=== PATIENT | female | born 1940 | race Caucasian/White ===

== ENCOUNTER 2018-04-05 10:53 | Outpatient (REF) | payer MEDICARE, MEDICAID, SELFPAY ==
[2018-04-05 13:13] LABS: BUN 17 mg/dL (7-18); CREATININE 0.86 mg/dL (0.55-1.02); Chloride 101 mmol/L (98-107); Glucose 153 mg/dL (70-100); Potassium 4.2 mmol/L (3.5-5.1); Sodium 139 mmol/L (136-145)
[2018-04-05 13:41] LABS: COMMENT (LAB VIEW ONLY) 147.57 mg/dL; Microalb ug/mg Crea 10.7 ug/mg Cr
== END 2018-04-05 11:13 ==
LOC: NCHCN 10:53
PROVIDERS: PCP Family Medicine; Visit Provider Family Medicine
DX: R80.9 Proteinuria, unspecified (principal); I10 Essential (primary) hypertension
CPT/HCPCS: 80048; 82043; 82570

== ENCOUNTER 2018-10-22 13:21 | Emergency (ER) | payer MEDICARE, MEDICAID, SELFPAY ==
[2018-10-22 13:40] VITALS: BP 139/60; PULSE 75; RESP 16; TEMP 36.6; O2SAT 95
--- NOTE | 2018-10-22 13:45 | W.ED.GENAD ---
Discharge Plan Disposition Patient Disposition: HOME Condition: Fair Discharge Details Chief Complaint: Cellulitis Clinical Impression: Bug bite Primary Care Provider: [facility] ED Provider: Rylee Sears Home Meds and New Rx's Prescriptions: New hydrocortisone 2.5 % cream 1 applic TP BID-QID PRN (Reason: allergic reaction) Qty: 20 RF: 0 Continued metformin 500 MG tablet 2,000 mg PO DAILY RF: 0 vitamin A 25,000 UNIT capsule 25,000 unit PO DAILY RF: 0 lisinopril 20 MG tablet 40 mg PO DAILY RF: 0 ascorbic acid (vitamin C) [Vitamin C] 500 MG capsule, extended release 500 mg PO DAILY RF: 0 vitamin B complex 1 EACH tablet 1 ea PO DAILY RF: 0 vitamin E 400 UNIT capsule 400 unit PO DAILY RF: 0 garlic 1 EACH tablet 1 ea PO DAILY RF: 0 omega-3 fatty acids-fish oil 1 EACH capsule 1 ea PO DAILY RF: 0 cholecalciferol (vitamin D3) 2,000 UNIT tablet 6,000 unit PO DAILY RF: 0 chromium amino acid chelate 400 MCG tablet 200 mcg PO DAILY RF: 0 essiac tea RF: 0 alpha lipoic acid 200 MG tablet 200 mg PO DAILY RF: 0 Discharge Instructions Instructions: Insect Bite or Sting (ED) Additional Instructions: Encourage hydration. Please use hydrocortisone cream as prescribed to help with itching. Please follow-up with primary care if not improving in 1 week. If you develop increased pain, fever/chills, discharge or other new/worsening symptoms please seek care urgently once again. Referrals: [facility] [Primary Care Provider] - Medical Decision Making Patient presents today with for evaluation of bug bites. She reports that she was bitten approximately 1 week ago. She has one bite posterior to the right ear, down towards the hairline is approximately 4 cm in diameter. It is not warm to palpation, no pain with palpation, no area of fluctuance. No discharge. Appears more reactive than infected. Patient reports is been very itchy she has been applying aloe which helps with chronic management. Also has a lump directly on the left ear which is smaller and appears very similar. I advised this appears more reactive than infectious. She reports that she typically has hyperreactive issues with bug bites. Patient reports she is been on steroids multiple times in the past and she responded poorly. Rather than systemic treatment, I feel that topical is appropriate and advised topical hydrocortisone. Advised that she wash this regularly and continue to monitor for signs of infection. Signs symptoms of infection were discussed. She will follow-up with primary care in 1 week if not improving. All questions and concerns were addressed and she is in agreement this plan peer HPI General Mode of arrival: ambulatory. Date/Time Provider Initiated Documentation: 10/22/18 13:45. Limitations to Documentation: no limitations. Information obtained by: patient and RN notes reviewed. History of Present Illness 77 year old F presents to the emergency department with the chief complaint of black fly bites behind both ears, described as moderate (itchy), Quality is described as burning (after itching or showering), and is localized to the head. Patient reports no radiation. Patient started experiencing this week(s) (1) and it has been constant. Medication improves symptom(s), (topical aloe) No exacerbating factors reported . Patient notes no other symptoms.. Patient did receive the following treatments prior to arrival, none Related Data Home Medications Medication Instructions Recorded Confirmed Essiac Tea 12/28/13 ascorbic acid (vitamin C) [Vitamin 500 mg PO DAILY 12/28/13 10/22/18 C] cholecalciferol (vitamin D3) 6,000 unit PO DAILY 12/28/13 10/22/18 chromium amino acid chelate 200 mcg PO DAILY 12/28/13 10/22/18 garlic 1 ea PO DAILY 12/28/13 10/22/18 lisinopril 40 mg PO DAILY tab-cap 12/28/13 10/22/18 metformin 2,000 mg PO DAILY tab-cap 12/28/13 10/22/18 omega-3 fatty acids-fish oil 1 ea PO DAILY 12/28/13 10/22/18 vitamin A 25,000 unit PO DAILY 12/28/13 10/22/18 vitamin B complex 1 ea PO DAILY 12/28/13 10/22/18 vitamin E 400 unit PO DAILY 12/28/13 10/22/18 alpha lipoic acid 200 mg PO DAILY 01/17/16 10/22/18 hydrocortisone 1 applic TP BID-QID PRN #20 gm 10/22/18 Previous Rx's Medication Instructions Recorded hydrocortisone 1 applic TP BID-QID PRN #20 gm 10/22/18 Allergies Allergy/AdvReac Type Severity Reaction Status Date / Time Penicillins Allergy Unverified 10/22/18 13:44 saxagliptin HCl Allergy Unverified 10/22/18 13:44 [From Onglyza] prednisone AdvReac Unverified 10/22/18 13:45 General Stated Complaint: Cellulitis EVA: 4 Review of Systems Constitutional Reports as per HPI, Denies chills and Denies fever(s) Musculoskeletal Reports as per HPI Integumentary/Breasts Reports as per HPI Neurologic Reports as per HPI, Denies sensory deficit and Denies paresthesias [facility] Medical History Alopecia Arthritis Congenital ectodermal dysplasia Constipation Contact dermatitis Cystitis Deviated nasal septum Diabetes Diabetic peripheral neuropathy Dry eye syndrome Esophagitis Herpes zoster Hyperlipidemia Hypertension Hyponatremia Microalbuminuric diabetic nephropathy Neck stiffness Osteopenia Sensorineural hearing loss Venous insufficiency Surgical History Total replacement of hip (~2000) Social History Smoking/Tobacco Use Status: Never Drug use: Never Do you feel safe in your relationship?: Yes Exam Const General: cooperative, healthy appearing, comfortable, no acute distress and well developed Nutritional Appearance: average body habitus and well nourished Orientation: alert and awake HENFL Head: abnormal to inspection (bites behind both ears with surrounding erythema and swelilng) Resp Effort & Inspection: normal respiratory effort, able to speak in complete sentences and no respiratory distress Cardio Rate: regular rate Rhythm: regular rhythm Skin General skin exam: erythema (around 2 bug bites) Neuro General: alert and awake Cognition: normal cognition Speech: speech normal Gait: normal gait Sensory Exam: no sensory deficits noted Psych Appearance: grossly normal and well kempt Mental Status: mental status grossly normal Speech and Movement: speech and movement normal Course Vital Signs Temperature 36.6 C 10/22/18 13:40 Pulse 75 10/22/18 13:40 Respiratory Rate 16 10/22/18 13:40 Blood Pressure 139/60 10/22/18 13:40 Pulse Oximetry 95 10/22/18 13:40 Temperature 36.6 C 10/22/18 13:40 Temperature Source Tympanic 10/22/18 13:40 Pulse 75 10/22/18 13:40 Respiratory Rate 16 06/15/19 13:40 Blood Pressure 139/60 06/15/19 13:40 Pulse Oximetry 95 10/22/18 13:40 Oxygen Delivery Method Room Air 10/22/18 13:40 Oxygen Flow Rate 0 10/22/18 13:40
--- NOTE | 2018-10-22 13:55 | ED.GENADUL_ITS ---
Discharge Plan Disposition Patient Disposition: HOME Condition: Fair Discharge Details Chief Complaint: Cellulitis Clinical Impression: Bug bite Primary Care Provider: [facility] ED Provider: Rylee Sears Home Meds and New Rx's Prescriptions: New hydrocortisone 2.5 % cream 1 applic TP BID-QID PRN (Reason: allergic reaction) Qty: 20 RF: 0 Continued metformin 500 MG tablet 2,000 mg PO DAILY RF: 0 vitamin A 25,000 UNIT capsule 25,000 unit PO DAILY RF: 0 lisinopril 20 MG tablet 40 mg PO DAILY RF: 0 ascorbic acid (vitamin C) [Vitamin C] 500 MG capsule, extended release 500 mg PO DAILY RF: 0 vitamin B complex 1 EACH tablet 1 ea PO DAILY RF: 0 vitamin E 400 UNIT capsule 400 unit PO DAILY RF: 0 garlic 1 EACH tablet 1 ea PO DAILY RF: 0 omega-3 fatty acids-fish oil 1 EACH capsule 1 ea PO DAILY RF: 0 cholecalciferol (vitamin D3) 2,000 UNIT tablet 6,000 unit PO DAILY RF: 0 chromium amino acid chelate 400 MCG tablet 200 mcg PO DAILY RF: 0 essiac tea RF: 0 alpha lipoic acid 200 MG tablet 200 mg PO DAILY RF: 0 Discharge Instructions Instructions: Insect Bite or Sting (ED) Additional Instructions: Encourage hydration. Please use hydrocortisone cream as prescribed to help with itching. Please follow-up with primary care if not improving in 1 week. If you develop increased pain, fever/chills, discharge or other new/worsening symptoms please seek care urgently once again. Referrals: [facility] [Primary Care Provider] - Medical Decision Making Patient presents today with for evaluation of bug bites. She reports that she was bitten approximately 1 week ago. She has one bite posterior to the right ear, down towards the hairline is approximately 4 cm in diameter. It is not warm to palpation, no pain with palpation, no area of fluctuance. No discharge. Appears more reactive than infected. Patient reports is been very itchy she has been applying aloe which helps with chronic management. Also has a lump directly on the left ear which is smaller and appears very similar. I advised this appears more reactive than infectious. She reports that she typically has hyperreactive issues with bug bites. Patient reports she is been on steroids multiple times in the past and she responded poorly. Rather than systemic treatment, I feel that topical is appropriate and advised topical hydrocortisone. Advised that she wash this regularly and continue to monitor for signs of infection. Signs symptoms of infection were discussed. She will follow-up with primary care in 1 week if not improving. All questions and concerns were addressed and she is in agreement this plan peer HPI General Mode of arrival: ambulatory . Date/Time Provider Initiated Documentation: 10/22/18 13:45 . Limitations to Documentation: no limitations . Information obtained by: patient and RN notes reviewed . History of Present Illness 77 year old F presents to the emergency department with the chief complaint of black fly bites behind both ears, described as moderate (itchy), Quality is described as burning (after itching or showering), and is localized to the head. Patient reports no radiation. Patient started experiencing this week(s) (1) and it has been constant. Medication improves symptom(s), (topical aloe) No exacerbating factors reported . Patient notes no other symptoms.. Patient did receive the following treatments prior to arrival, none Related Data Home Medications Medication Instructions Recorded Confirmed Essiac Tea 12/28/13 ascorbic acid (vitamin C) [Vitamin 500 mg PO DAILY 12/28/13 10/22/18 C] cholecalciferol (vitamin D3) 6,000 unit PO DAILY 12/28/13 10/22/18 chromium amino acid chelate 200 mcg PO DAILY 12/28/13 10/22/18 garlic 1 ea PO DAILY 12/28/13 10/22/18 lisinopril 40 mg PO DAILY tab-cap 12/28/13 10/22/18 metformin 2,000 mg PO DAILY tab-cap 12/28/13 10/22/18 omega-3 fatty acids-fish oil 1 ea PO DAILY 12/28/13 10/22/18 vitamin A 25,000 unit PO DAILY 12/28/13 10/22/18 vitamin B complex 1 ea PO DAILY 12/28/13 10/22/18 vitamin E 400 unit PO DAILY 12/28/13 10/22/18 alpha lipoic acid 200 mg PO DAILY 01/17/16 10/22/18 hydrocortisone 1 applic TP BID-QID PRN #20 gm 10/22/18 Previous Rx's Medication Instructions Recorded hydrocortisone 1 applic TP BID-QID PRN #20 gm 10/22/18 Allergies Allergy/AdvReac Type Severity Reaction Status Date / Time Penicillins Allergy Unverified 10/22/18 13:44 saxagliptin HCl Allergy Unverified 10/22/18 13:44 [From Onglyza] prednisone AdvReac Unverified 10/22/18 13:45 General Stated Complaint: Cellulitis EVA: 4 Review of Systems Constitutional Reports as per HPI, Denies chills and Denies fever(s) Musculoskeletal Reports as per HPI Integumentary/Breasts Reports as per HPI Neurologic Reports as per HPI, Denies sensory deficit and Denies paresthesias [facility] Medical History Alopecia Arthritis Congenital ectodermal dysplasia Constipation Contact dermatitis Cystitis Deviated nasal septum Diabetes Diabetic peripheral neuropathy Dry eye syndrome Esophagitis Herpes zoster Hyperlipidemia Hypertension Hyponatremia Microalbuminuric diabetic nephropathy Neck stiffness Osteopenia Sensorineural hearing loss Venous insufficiency Surgical History Total replacement of hip (~2000) Social History Smoking/Tobacco Use Status: Never Drug use: Never Do you feel safe in your relationship?: Yes Exam Const General: cooperative, healthy appearing, comfortable, no acute distress and well developed Nutritional Appearance: average body habitus and well nourished Orientation: alert and awake HENAR Head: abnormal to inspection (bites behind both ears with surrounding erythema and swelilng) Resp Effort & Inspection: normal respiratory effort, able to speak in complete sentences and no respiratory distress Cardio Rate: regular rate Rhythm: regular rhythm Skin General skin exam: erythema (around 2 bug bites) Neuro General: alert and awake Cognition: normal cognition Speech: speech normal Gait: normal gait Sensory Exam: no sensory deficits noted Psych Appearance: grossly normal and well kempt Mental Status: mental status grossly normal Speech and Movement: speech and movement normal Course Vital Signs Temperature 36.6 C 10/22/18 13:40 Pulse 75 10/22/18 13:40 Respiratory Rate 16 10/22/18 13:40 Blood Pressure 139/60 10/22/18 13:40 Pulse Oximetry 95 10/22/18 13:40 Temperature 36.6 C 10/22/18 13:40 Temperature Source Tympanic 10/22/18 13:40 Pulse 75 10/22/18 13:40 Respiratory Rate 16 06/15/19 13:40 Blood Pressure 139/60 06/15/19 13:40 Pulse Oximetry 95 10/22/18 13:40 Oxygen Delivery Method Room Air 10/22/18 13:40 Oxygen Flow Rate 0 10/22/18 13:40
== END 2018-10-22 14:12 | disposition home or self-care (01) ==
LOC: ER 14:12
PROVIDERS: Emergency Provider Physician Assistant; PCP Family Medicine
DX: S00.461A Insect bite (nonvenomous) of right ear, initial encounter (principal); W57.XXXA Bitten or stung by nonvenomous insect and other nonvenomous arthropods, initial encounter; E11.29 Type 2 diabetes mellitus with other diabetic kidney complication; I10 Essential (primary) hypertension; E11.40 Type 2 diabetes mellitus with diabetic neuropathy, unspecified; Z79.84 Long term (current) use of oral hypoglycemic drugs
CPT/HCPCS: 99282

== ENCOUNTER 2019-03-14 13:16 | Outpatient (REF) | payer MEDICARE, MEDICAID, SELFPAY ==
[2019-03-14 19:43] LABS: HCT 38.5 % (36.0-46.0); HGB 12.5 g/dL (12.0-15.5); Mean Corp. HGB Concentration 32.5 g/dL (32.0-36.0); Mean Corpuscular Hemoglobin 28.9 pg (27.0-33.0); Mean Corpuscular Volume 88.9 fL (80-95); Mean Platelet Volume 11.5 fL (8.0-11.0); Platelet Count 243 x1000/uL (130-400); RBC 4.33 m/cumm (4.00-5.20); RBC Distribution Width 12.3 % (11.7-14.6); White Blood Cell Count 5.92 k/cumm (4.4-10.8)
[2019-03-14 20:07] LABS: ALT 33 U/L (14-59); AST 15 U/L (15-37); Albumin 3.8 g/dL (3.4-5.0); Alkaline Phosphatase 65 U/L (46-116); Anion Gap 12.2 mmol/L (3-11); BUN 17 mg/dL (7-18); Bilirubin, Total 0.4 mg/dL (0.2-1.0); CO2 24.8 mmol/L (21.0-32.0); Calcium 8.8 mg/dL (8.5-10.1); Calculated LDL 107 mg/dL; Chloride 103 mmol/L (98-107); Cholesterol 178 mg/dL (50-200); Glucose 109 mg/dL (70-100); HDL Cholesterol 56 mg/dL (40-60); Potassium 4.4 mmol/L (3.5-5.1); Sodium 140 mmol/L (136-145); TSH (W/Ref FT4) 0.92 uIU/mL (0.36-3.74); Triglyceride 77 mg/dL (30-150)
== END 2019-03-14 13:36 ==
LOC: NCHCN 13:16
PROVIDERS: PCP Family Medicine; Visit Provider Family Medicine
DX: I10 Essential (primary) hypertension (principal); E11.9 Type 2 diabetes mellitus without complications; R63.4 Abnormal weight loss
CPT/HCPCS: 80053; 80061; 85027; 84443

== ENCOUNTER 2020-01-16 15:20 | Outpatient (REF) | payer MEDICARE, MEDICAID, SELFPAY ==
[2020-01-16 16:30] LABS: Anion Gap 10.9 mmol/L (3-11); BUN 19 mg/dL (7-18); CO2 25.1 mmol/L (21.0-32.0); CREATININE 0.74 mg/dL (0.55-1.02); Calcium 9.1 mg/dL (8.5-10.1); Chloride 98 mmol/L (98-107); Glucose 146 mg/dL (74-106); Potassium 4.1 mmol/L (3.5-5.1); Sodium 134 mmol/L (136-145)
== END 2020-01-16 15:40 ==
LOC: NCHCN 15:20
PROVIDERS: PCP Family Medicine; Visit Provider Family Medicine
DX: I10 Essential (primary) hypertension (principal); E11.9 Type 2 diabetes mellitus without complications
CPT/HCPCS: 80048

== ENCOUNTER 2020-03-22 11:31 | Emergency (ER) | payer MEDICARE, MEDICAID, SELFPAY ==
[2020-03-22 11:36] VITALS: BP 165/68; PULSE 76; RESP 14; TEMP 36.7; O2SAT 100
--- NOTE | 2020-03-22 11:54 | W.ED.GENAD ---
Discharge Plan Disposition Patient Disposition: HOME Condition: Stable Discharge Details Clinical Impression: Migraine, Head pain Primary Care Provider: [facility] ED Provider: Shayne Shelton Home Meds and New Rx's Prescriptions: Continued metformin 500 MG tablet 2,000 mg PO DAILY RF: 0 vitamin A 25,000 UNIT capsule 25,000 unit PO DAILY RF: 0 lisinopril 20 MG tablet 40 mg PO DAILY RF: 0 ascorbic acid (vitamin C) [Vitamin C] 500 MG capsule, extended release 500 mg PO DAILY RF: 0 vitamin B complex 1 EACH tablet 1 ea PO DAILY RF: 0 vitamin E 400 UNIT capsule 400 unit PO DAILY RF: 0 garlic 1 EACH tablet 1 ea PO DAILY RF: 0 omega-3 fatty acids-fish oil 1 EACH capsule 1 ea PO DAILY RF: 0 cholecalciferol (vitamin D3) 2,000 UNIT tablet 6,000 unit PO DAILY RF: 0 chromium amino acid chelate 400 MCG tablet 200 mcg PO DAILY RF: 0 essiac tea RF: 0 alpha lipoic acid 200 MG tablet 200 mg PO DAILY RF: 0 hydrocortisone 2.5 % cream 1 applic TP BID-QID PRN (Reason: allergic reaction) Qty: 20 RF: 0 Discharge Instructions Additional Instructions: your blood work and cat scan did not show any concerning findings if you have severe worsening pain, persistent vomit, or feel more ill return to the emergency department follow up with your primary care provider Medical Decision Making 79 yo female with hx of ocular migraines per patient but has not had one in 6 years comes in with complaints of having an ocular migraine. She states 3 days ago had pain similar to prior migraines that was not the worst of her life on the left parietal region lasting a few minutes and resolved and had blurred vision which resolved as well. 2 days ago and today had 10 minutes of blurred vision that resolved and she arrives asymptomatic. Denies weakness, paresthesia and no head pain now and no fevers or neck stiffness. Arrives with normal gait and normal speech, eomi, no temporal artery tenderness, no meningismus, nih of 0. Suspect her symptoms are due to ocular migraines but given it has been 6 years since last will obtain iamging to evaluate for possible sdh, aneurysm among other pathology. No findings to suggest extruder tender infection and pain was not the worst of her life so doubt sah. pt remains sable, 20/40 in the left eye and 20/70 in the right eye which she states is baseline and remains asymptomatic.Labs and imaging unremarkable. Suspect migraine as cause of her symptoms will d/c home and return precautions given Differential Diagnosis Differential Diagnosis: aneurysm, migraine, sdh, cluster headache Medical Records Medical records reviewed: Yes I reviewed the patient's medical records. Imaging Data Radiologic Study: Attestation: I personally reviewed and interpreted this imaging study as follows: Imaging: CT Scan Radiologist's impression: IMPRESSION: 1. No evidence of aneurysm, significant stenosis or occlusion. 2. Unremarkable noncontrast CT Head. 3. Findings were discussed with the emergency department on the date of the examination Lab Data Lab results reviewed: Yes I reviewed the patient's lab results. HPI General Mode of arrival: ambulatory. Date/Time Provider Initiated Documentation: 03/22/20 11:32. Limitations to Documentation: no limitations. Information obtained by: patient. History of Present Illness 79 year old F presents to the emergency department with the chief complaint of headache, described as moderate, Patient started experiencing this day(s) (3) and it has been now resolved. No relieving factors improve symptom(s), No exacerbating factors reported . Patient did receive the following treatments prior to arrival, none Related Data Home Medications Medication Instructions Recorded Confirmed Essiac Tea 12/28/13 ascorbic acid (vitamin C) [Vitamin 500 mg PO DAILY 12/28/13 03/22/20 C] cholecalciferol (vitamin D3) 6,000 unit PO DAILY 12/28/13 03/22/20 chromium amino acid chelate 200 mcg PO DAILY 12/28/13 03/22/20 garlic 1 ea PO DAILY 12/28/13 03/22/20 lisinopril 40 mg PO DAILY tab-cap 12/28/13 03/22/20 metformin 2,000 mg PO DAILY tab-cap 12/28/13 03/22/20 omega-3 fatty acids-fish oil 1 ea PO DAILY 12/28/13 03/22/20 vitamin A 25,000 unit PO DAILY 12/28/13 03/22/20 vitamin B complex 1 ea PO DAILY 12/28/13 03/22/20 vitamin E 400 unit PO DAILY 12/28/13 03/22/20 alpha lipoic acid 200 mg PO DAILY 01/17/16 03/22/20 hydrocortisone 1 applic TP BID-QID PRN #20 gm 10/22/18 03/22/20 Previous Rx's Medication Instructions Recorded hydrocortisone 1 applic TP BID-QID PRN #20 gm 10/22/18 Allergies Allergy/AdvReac Type Severity Reaction Status Date / Time Penicillins Allergy Unverified 03/22/20 11:42 saxagliptin HCl Allergy Unverified 03/22/20 11:42 [From Onglyza] prednisone AdvReac Unverified 03/22/20 11:42 General Stated Complaint: Headache EVA: 3 Review of Systems All systems reviewed & are unremarkable except as noted in HPI and below Constitutional Constitutional: Denies chills, Denies fever(s) and Denies weakness Cardiovascular Cardiovascular: Denies chest pain and Denies dyspnea Respiratory Respiratory: Denies cough and Denies dyspnea Gastrointestinal Gastrointestinal: Denies abdominal pain, Denies nausea and Denies vomiting Musculoskeletal Musculoskeletal: Denies joint swelling Neurologic Neurologic: Denies weakness Psychiatric Psychiatric: Denies depression [facility] Medical History (Updated 03/22/20 @ 13:40 by Shayne Shelton MD) Alopecia Arthritis Congenital ectodermal dysplasia Constipation Contact dermatitis Cystitis Deviated nasal septum Diabetes 2006 Diabetic peripheral neuropathy Dry eye syndrome Esophagitis Herpes zoster Hyperlipidemia Hypertension Hyponatremia Microalbuminuric diabetic nephropathy Neck stiffness Osteopenia Venous insufficiency Surgical History Total replacement of hip (~2000) Social History Smoking/Tobacco Use Status: Never Smoking risk assessment performed?: Yes Alcohol Intake: never Drug use: Never Substance use type: does not use Do you feel safe at home: Yes Do you feel safe in your relationship?: Yes Exam Const General: no acute distress Orientation: alert HENUT Head: normal to inspection Ears: external ears normal General nose exam: external nose normal Mouth: moist mucous membranes Eyes General: appearance normal, both eyes and all related structures Neck Neck: normal visual inspection Resp Effort & Inspection: normal respiratory effort and able to speak in complete sentences Cardio Rate: regular rate Skin General skin exam: no rashes or lesions noted Neuro General: patient alert and patient oriented x3 Extrem General: normal to inspection Psych Mental Status: mental status grossly normal Course Vital Signs Vital signs: Vital Signs Temperature 36.7 C 03/22/20 11:36 Pulse 76 03/22/20 11:36 Respiratory Rate 14 03/22/20 11:36 Blood Pressure 165/68 H 03/22/20 11:36 Pulse Oximetry 100 03/22/20 11:36 Temperature 36.7 C 03/22/20 11:36 Temperature Source Skin 03/22/20 11:36 Pulse 76 03/22/20 11:36 Respiratory Rate 14 03/22/20 11:36 Respiratory Effort 03/22/20 11:43 Blood Pressure 165/68 H 03/22/20 11:36 Blood Pressure Position Sitting 03/22/20 11:36 Pulse Oximetry 100 03/22/20 11:36 Oxygen Delivery Method Room Air 03/22/20 11:36 Oxygen Flow Rate 0 03/22/20 11:36 Pain Level 0 03/22/20 11:36
[2020-03-22 12:39] LABS: Abs Immature Grans 0.02 10^3/uL (0.0-0.06); Absolute Basophil Count 0.04 10^3/uL (0.0-0.2); Absolute Eosinophil Count 0.36 10^3/uL (0.0-0.7); Absolute Lymphocyte Count 1.99 10^3/uL (1.2-3.4); Absolute Monocyte Count 0.92 10^3/uL (0.1-0.8); Absolute Neutrophil Count 3.92 10^3/uL (1.2-6.7); Basophils % 0.6; HCT 39.7 % (36.0-46.0); HGB 13.2 g/dL (11.2-15.7); Immature Grans % 0.3; Lymphocytes % 27.4; MCH 29.3 pg (27.0-33.0); MCHC 33.2 % (32.0-36.0); MPV 10.5 fL (8.0-11.0); Monocytes % 12.7; Nucleated RBC 0 %; Platelet Count 239 10^3/uL (130-400); RBC 4.51 10^6/uL (3.93-5.22); RDW 11.8 % (11.7-14.6); WBC 7.25 10^3/uL (4.4-10.8)
[2020-03-22 12:53] LABS: ALT 18 U/L (14-59); AST 12 U/L (15-37); Alkaline Phosphatase 66 U/L (46-116); Anion Gap 12.3 mmol/L (3-11); BUN 19 mg/dL (7-18); Bilirubin, Total 0.5 mg/dL (0.2-1.0); CO2 25.7 mmol/L (21.0-32.0); CREATININE 0.76 mg/dL (0.55-1.02); Calcium 9.2 mg/dL (8.5-10.1); Chloride 97 mmol/L (98-107); Glucose 134 mg/dL (74-106); Magnesium 1.7 mg/dL (1.8-2.4); Potassium 4.2 mmol/L (3.5-5.1); Sodium 135 mmol/L (136-145); Total Protein 7.8 g/dL (6.4-8.2)
[2020-03-22 12:54] LABS: INR 1.1 (0.9-1.1); PTT Activated 24.4 sec (21.0-27.5)
--- NOTE | 2020-03-22 13:04 | DI.CT_ITS ---
EXAM: CT BRAIN CTA CLINICAL HISTORY: headache. TECHNIQUE: Imaging Protocol: Axial CT angiography was performed with multi-slice acquisition and mu lti-planar and/or 3D reconstructions. CONTRAST MATERIAL: Intravenous: Omnipaque 350 Contrast volume:85 mL COMPARISON: No exams were available for comparison FINDINGS: CT Head W/O: Ventricles and Extra axial spaces: Normal in size and morphology for the patient's age. Hemorrhage: None. Cerebral parenchyma: Normal. Midline shift: None. Brainstem/Cerebellum: Normal. Calvarium: Normal. Visualized Paranasal sinuses/Mastoids: Clear. Soft Tissues: Unremarkable. CTA Brain W: Internal Carotid Arteries: Petrous: No aneurysm, occlusion or significant stenosis. Cavernous: Atherosclerosis. No aneurysm, occlusion or significant stenosis. Cerebral: Atherosclerosis. No aneurysm, occlusion or significant stenosis. Anterior Cerebral Arteries: Right: No aneurysm, occlusion or significant stenosis. Left: No aneurysm, occlusion or significant stenosis. Middle Cerebral Arteries: Right: No aneurysm, occlusion or significant stenosis. Left: No aneurysm, occlusion or significant stenosis. Posterior cerebral Arteries: Right: No aneurysm, occlusion or significant stenosis. Left: No aneurysm or occlusion. There is mild narrowing of the mid left posterior cerebral artery. Vertebral Arteries: Right: No aneurysm, occlusion or significant stenosis. Left: No aneurysm or occlusion. There is mild narrowing of the distal left vertebral artery. Basilar Artery: No aneurysm, occlusion or significant stenosis. IMPRESSION: 1. No evidence of aneurysm, significant stenosis or occlusion. 2. Unremarkable noncontrast CT Head. 3. Findings were discussed with the emergency department on the date of the examination. RADIATION DOSE DELIVERED: 891.33mGy.cm Total DLP DATA REPOSITORY: All CT scans at this facility are submitted to the National Radiology Data Registry (NRDR) Dose Index Registry (DIR) with the [employer] (A[employer]). RADIATION OPTIMIZATION: All CT scans at this facility use at least one of these dose optimization te chniques: automated exposure control; mA and/or kV adjustment per patient size (includes targeted exa ms where dose is matched to clinical indication); or iterative reconstruction.
[2020-03-22] MEDS: Normal Saline - Diluent 50 ML VIAL IV (13:05)
[2020-03-22] MEDS: Omnipaque 350 MG/ML 100 ML BTL IJ (13:05)
[2020-03-22 13:22] VITALS: BP 163/89; PULSE 68; RESP 16; O2SAT 97
== END 2020-03-22 13:54 | disposition home or self-care (01) ==
PROVIDERS: Emergency Provider Emergency Medicine; PCP Family Medicine
DX: G43.809 Other migraine, not intractable, without status migrainosus (principal); H53.8 Other visual disturbances; E11.9 Type 2 diabetes mellitus without complications; Z79.84 Long term (current) use of oral hypoglycemic drugs; I10 Essential (primary) hypertension
CPT/HCPCS: 36415; 70496; 80053; 99285; 83735; 85025; 85610; 85730; 99284; J3490

== ENCOUNTER 2020-04-19 02:07 | Outpatient (CLI) | payer MEDICARE, MEDICAID, SELFPAY ==
--- NOTE | 2020-04-19 | DI.MRI_ITS ---
EXAM: MR BRAIN WO CLINICAL HISTORY: RT SIDED NUMBNESS WITH LT SIDED HEADACHE/NECK PAIN,? CVA, HYPERTENSION,R20.. TECHNIQUE: Multiplanar multisequence MRI of the brain was performed. CONTRAST MATERIAL: Noncontrast COMPARISON: CT CT BRAIN CTA from 03/22/2020 FINDINGS: VENTRICLES AND EXTRA AXIAL SPACES: Normal in size and morphology for the patient's age. HEMORRHAGE: None. CEREBRAL PARENCHYMA: No focus of restricted diffusion to suggest acute infarct. No space-occupying le jama identified. Scattered small foci of high signal in the white matter consistent with microvascul ar changes. MIDLINE SHIFT: None. BRAINSTEM/CEREBELLUM: Normal.. VISUALIZED PARANASAL SINUSES/MASTOIDS: Clear. OTHER FINDINGS: Orbits are unremarkable. Vascular flow voids are intact. IMPRESSION: [id number] white matter changes of microvascular disease. No acute abnormality is identified. DATA REPOSITORY:
== END 2020-04-19 02:27 ==
PROVIDERS: PCP Family Medicine; Visit Provider Family Medicine
DX: I67.89 Other cerebrovascular disease (principal); I10 Essential (primary) hypertension; R51.9 Headache, unspecified; R20.0 Anesthesia of skin
CPT/HCPCS: 70551

== ENCOUNTER 2020-06-17 08:47 | Day surgery (SDC) | payer MEDICARE, MEDICAID, SELFPAY ==
[2020-06-17 09:25] VITALS: BP 171/86; PULSE 63; RESP 16; TEMP 36.1; O2SAT 99
[2020-06-17] MEDS: Tropicam./Phenyleph. (1/2.5%) 5 ML BTL OD ×3 (09:33→09:51)
[2020-06-17] MEDS: Tetracaine 0.5% 4 ML BTL OD (10:53)
[2020-06-17] MEDS: Balanced Salt Soln.-PLUS 500 ML BAG (10:54)
[2020-06-17] MEDS: Duovisc Viscoelastic System EACH 1 EACH (10:55)
[2020-06-17] MEDS: Lidocaine 1% Pres-Free 5 ML VIAL (10:55)
[2020-06-17] MEDS: Lidocaine 2% Jelly 6 ML SYR (10:56)
[2020-06-17] MEDS: Povidone-Iodine Ophth 30 ML BTL (10:57)
--- NOTE | 2020-06-17 11:12 | W.PM.DSUDISC ---
Discharge Plan Disposition Patient Disposition: HOME Condition: Good Discharge Details Attending Provider: Ed Ham Primary Care Provider: [place] Meds and New Rx's Prescriptions: No Action metformin 500 MG tablet 1,000 mg PO BID RF: 0 vitamin A 25,000 UNIT capsule 25,000 unit PO DAILY RF: 0 lisinopril 20 MG tablet 40 mg PO DAILY RF: 0 ascorbic acid (vitamin C) [Vitamin C] 500 MG capsule, extended release 500 mg PO DAILY RF: 0 vitamin B complex 1 EACH tablet 1 ea PO DAILY RF: 0 vitamin E 400 UNIT capsule 400 unit PO DAILY RF: 0 garlic 1 EACH tablet 1 ea PO DAILY RF: 0 omega-3 fatty acids-fish oil 1 EACH capsule 1 ea PO DAILY RF: 0 cholecalciferol (vitamin D3) 2,000 UNIT tablet 6,000 unit PO DAILY RF: 0 chromium amino acid chelate 400 MCG tablet 200 mcg PO DAILY RF: 0 essiac tea RF: 0 alpha lipoic acid 200 MG tablet 200 mg PO DAILY RF: 0 magnesium 100 mg Tablet 125 mg PO DAILY RF: 0 cranberry extract 500 mg Capsule 500 mg PO DAILY RF: 0 Lantus Solostar U-100 Insulin 100 unit/mL (3 mL) insulin pen 8 unit SUBCUT HS RF: 0 taurine 1,000 mg Capsule 1,600 mg PO DAILY RF: 0 Discharge Instructions Stand Alone Forms: Post-op Topical Cataract, Press Ganey (DSU) Discharge Orders Discharge Orders: Discharge Order (Routine); Ordered 06/17/20 Ordered By: Ed Ham DS: Diagnosis Discharge Diagnosis (1) Posterior subcapsular age-related cataract, right eye: Status: Resolved (2) Nuclear sclerotic cataract of right eye: Status: Resolved
--- NOTE | 2020-06-17 11:13 | ROE_ITS ---
Date of service: 06/17/20 Time of Service: 11:13 Operative Note Operative Note DATE OF PROCEDURE: 06/17/20 PRE-OP DIAGNOSIS: Nuclear/posterior subcapsular cataract, right eye Myopia POST-OP DIAGNOSIS: same PROCEDURE: Cataract extraction using phacoemulsification with intraocular lens implant, right eye SURGEON: Ed Ham ANESTHESIA: MAC and local (sub-tenon's anesthetic infiltration) ESTIMATED BLOOD LOSS: 0 PATHOLOGY: none sent COMPLICATIONS: None Patient was transported to: same day Patient's condition: stable Implants: [employer] / [employer] Tecnis [id number] intraocular lens Indications: Progressive decreased vision due to cataract, right eye Procedure Description: CATARACT SURGERY OPERATIVE REPORT PREOPERATIVE DIAGNOSIS: Nuclear/posterior subcapsular cataract, right eye Myopia with desire to remain myopic postoperatively, -2.25 target POSTOPERATIVE DIAGNOSIS: Same OPERATION: Cataract extraction using phacoemulsification with posterior chamber intraocular lens implant, right eye. IOL: IOL Foster Care Therapist/Model: [employer] / BORIS Tecnis ZCB00 IOL Power: + 12.0 diopters IOL Serial Number: [id number] Optic Diameter: 6.0mm Haptic/Overall Diameter: 13.0mm PHACO INFO: Fernando [employer] Vision System with OZil and Active [employer]uidics Cumulative Dispersed Energy (CDE): 8.15 seconds SURGEON: Ed Ham MD, [place] ANESTHESIA: Monitored Anesthesia Care (MAC), with local sub-tenon's anesthetic infiltration COMPLICATIONS: None SPECIMENS: None INDICATIONS FOR PROCEDURE: The patient is a 79-year-old lady with history of diminished visual acuity in both eyes secondary to the development of bilateral cataracts. She has a history of myopia and read without her glasses. She desires cataract surgery, but desires to remain myopic postoperatively so she can continue to read without glasses. PROCEDURE: The correct surgical eye was identified and marked as the right eye and the pupil was dilated in the preoperative area using mydriatics and cycloplegics. The dilated pupil size was 6.5 mm. Oral sedation was administered in the form of an Imprimis MKO Melt (midazolam 3mg/ketamine 25mg/ondansetron 2mg). The patient was brought to the operating room where cardiopulmonary monitoring was instituted and surgical time-out was performed, confirming the correct operative eye and IOL power. Topical anesthesia was administered and ophthalmic povidone-iodine 5% was instilled into the conjunctival fornices. Lidocaine gel was applied to the cornea and the shailesh-ocular area was prepped with Betadine 10% solution and draped in the usual sterile fashion for intraocular surgery, including an aperture drape. A Tegaderm transparent film dressing was cut in half and used to cover the lashes and lid margins. Care was taken to sequester the lashes and lid margins under the Tegaderm dressing. A lid speculum was placed between the lids of the operative eye and the Rhea-Joanne operating microscope was maneuvered into position. Gisela scissors were then used to make a conjunctival buttonhole approximately 6mm posterior to the limbus in the inferonasal quadrant. Blunt dissection was carried out to expose bare sclera, and a blunt-tipped sub-tenon?s anesthesia cannula was introduced and passed posteriorly along the globe where non- preserved plain lidocaine was injected into posterior sub-Tenon?s space. A sideport knife was used to make a paracentesis port inferiortemporally. Intraocular phenylephrine/lidocaine was injected into the anterior chamber. The anterior chamber was then filled with viscoelastic. A 2.4mm keratome knife was used to create a half-thickness groove at the limbus and then to construct a three-plane near-clear corneal tunnel extending 2.0mm into clear cornea in the superiortemporal position. . A flap was raised on the anterior capsule and gageu lorhexis forceps were used to complete a continuous curvilinear capsulorhexis of 5.0 mm. Balanced salt solution was then used to perform cortical cleaving hydrodissection and nuclear hydrodelineation until the lens could be freely rotated within the capsular bag. The lens nucleus was then disassembled and removed within the capsular bag and iris plane using phacoemulsification. Residual cortical material was removed using the I/A handpiece. The posterior capsule was carefully polished to remove as much residual lens epithelial cells as safely possible. The capsular bag was then inflated and the anterior chamber deepened with viscoelastic. The lens implant described above was inserted into the capsular bag using the BORIS [place] Injector. A Kuglen hook was used to dial the IOL into position. Residual viscoelastic was then removed first from posterior to the IOL, then from the anterior chamber using the I/A handpiece. The lens implant was noted to center nicely within the capsular bag. The incisions were stromally hydrated, and the anterior chamber was reformed using BSS. Then 0.5cc of moxifloxacin 1.0mg/ml were injected into the capsular bag and anterior chamber. The inci sions were checked with a Weck spear and found to be secure. Several drops of ophthalmic povidone-iodine 5% were then applied to the eye followed by two drops of Imprimis combination prednisolone/moxifloxacin/nepafenac solution. The drapes were removed and a clear plastic protective eye shield was placed over the eye. The patient was then returned to [facility] in stable condition.
== END 2020-06-17 11:31 | disposition home or self-care (01) ==
PROVIDERS: PCP Family Medicine; Visit Provider Ophthalmology
PROC: (CPT 66984; principal; 2020-06-17 11:30)
DX: H25.041 Posterior subcapsular polar age-related cataract, right eye (principal); H25.11 Age-related nuclear cataract, right eye; H52.11 Myopia, right eye; E11.9 Type 2 diabetes mellitus without complications
CPT/HCPCS: 66984; V2632

== ENCOUNTER 2020-06-18 14:50 | Observation (INO) | payer MEDICARE, MEDICAID, SELFPAY ==
--- NOTE | 2020-06-18 14:45 | DI.CT_ITS ---
EXAM: CT HEAD WO CLINICAL HISTORY: slurred speech, r/o acute cva. TECHNIQUE: Imaging Protocol: Axial computed tomography images with coronal and sagittal reformatted images were created and reviewed COMPARISON: CT CT BRAIN CTA from 03/22/2020 FINDINGS: Ventricles and Extra axial spaces: Normal in size and morphology for the patient's age. Hemorrhage: None. Cerebral parenchyma: There are areas of decreased attenuation in the white matter most consistent wit h chronic microvascular ischemic disease. No evidence of an acute territorial infarct. Midline shift: None. Brainstem/Cerebellum: Normal. Calvarium: Normal. Visualized Paranasal sinuses/Mastoids: Clear. Soft Tissues: Unremarkable. IMPRESSION: No acute intracranial process. Results of this exam have been verbally communicated with provider. RADIATION DOSE DELIVERED: 669.53mGy.cm Total DLP DATA REPOSITORY: All CT scans at this facility are submitted to the National Radiology Data Registry (NRDR) Dose Index Registry (DIR) with the [employer] (ACR). RADIATION OPTIMIZATION: All CT scans at this facility use at least one of these dose optimization te chniques: automated exposure control; mA and/or kV adjustment per patient size (includes targeted exa ms where dose is matched to clinical indication); or iterative reconstruction.
--- NOTE | 2020-06-18 14:45 | RT.EKG_ITS ---
APPROVED REPORT Exam: Resting ECG Patient Location: E HR:82 bpm ECG Measurements Heart Rate 82 AXIS ID 184 P 40 QRSd 81 QRS 14 QT 381 T 80 QTc 444 Conclusion Sinus rhythm...normal P axis, V-rate 60- 99 I have reviewed and interpreted ECG and agree with software generated interpretation.
[2020-06-18 14:54] VITALS: BP 192/70; PULSE 95; RESP 18; TEMP 36.4; O2SAT 99
--- NOTE | 2020-06-18 15:00 | DI.RAD_ITS ---
EXAM: XR CHEST 2V PA LATERAL CLINICAL HISTORY: possible cva, r/o acute disease TECHNIQUE: 2D digital imaging was performed. COMPARISON: No exams were available for comparison FINDINGS: The heart size is normal. The aorta is slightly tortuous. The lungs are clear. No infiltrate, effu jama or pneumothorax is seen. There are no thoracic compression fractures. IMPRESSION: No acute pulmonary findings. DATA REPOSITORY: RADIATION DOSE DELIVERED:
--- NOTE | 2020-06-18 15:00 | ED.GENADUL_ITS ---
Discharge Plan Disposition Patient Disposition: [facility] INPATIENT Condition: Stable Discharge Details Clinical Impression: TIA (transient ischemic attack) Admit Date/Time: 06/18/20 18:10 Admit Provider: Tani Robledo Attending Provider: Tani Robledo Primary Care Provider: [place] ED Provider: Sheyla Padgett Medical Decision Making 79-year-old female with a history of diabetes, hypertension, hyperlipidemia presents for a 10-minute episode of garbled speech that occurred at 1 PM today. Admits to mild headache but otherwise no acute complaints at this time. EKG on arrival notes a rate of 82, sinus, no STEMI, nondiagnostic. Blood pressure hypertensive at 192/70, remainder vitals within normal limits. No focal deficits on exam. No meningeal signs. Patient referred for stat CT head which was negative. Consider TIA, acute CVA. Will obtain screening labs and refer for MRI/MRA brain. Labs and imaging reviewed. MRI/MRA brain negative. Urinalysis negative for infection. Case discussed with [facility] neurology who recommended a full dose aspirin for 1 week followed by 81 mg. Recommended observation overnight for telemetry monitoring, with plan for carotid ultrasound and echocardiogram. Patient agreeable with plan. Case discussed with hospitalist accepts patient for admission. Medical Records Medical records reviewed: Yes I reviewed the patient's medical records. Imaging Data Radiologic Study: Radiologist's impression: CT HEAD WO CLINICAL HISTORY: slurred speech, r/o acute cva. TECHNIQUE: Imaging Protocol: Axial computed tomography images with coronal and sagittal reformatted images were created and reviewed COMPARISON: CT CT BRAIN CTA from 03/22/2020 FINDINGS: Ventricles and Extra axial spaces: Normal in size and morphology for the patient's age. Hemorrhage: None. Cerebral parenchyma: There are areas of decreased attenuation in the white matter most consistent with chronic microvascular ischemic disease. No evidence of an acute territorial infarct. Midline shift: None. Brainstem/Cerebellum: Normal. Calvarium: Normal. Visualized Paranasal sinuses/Mastoids: Clear. Soft Tissues: Unremarkable. IMPRESSION: No acute intracranial process. Results of this exam have been verbally communicated with provider. MR Head Without Contrast Exam date and time: 06/18/2020 4:19 PM Age: 79 years old Clinical indication: Other: TIA TECHNIQUE: Imaging protocol: MR of the head without contrast. 3D rendering (Not supervised by radiologist): MIP and/or 3D reconstructed images were created by the technologist. COMPARISON: MR BRAIN WO 04/19/2020 11:01 AM FINDINGS: Brain: No acute intra-cranial infarct. No abnormal extra axial fluid collections. Mild, scattered foci of long T2 relaxation in the periventricular and subcortical white matter which are nonspecific, but most likely related to chronic microvascular disease. The major intracranial vascular structures at the skull base appear patent. Cerebral ventricles: Ventricles and sulci are normal for the patient's stated age of 76 years. Bones/joints: Unremarkable. Paranasal sinuses: Paranasal sinuses are clear. Mastoid air cells: Normal as visualized. No mastoid effusion. Orbital cavity: Unremarkable. Soft tissues: Unremarkable. IMPRESSION: Chronic small vessel ischemic changes. No evidence of acute infarct or other acute abnormality. XR Chest, 2 Views Exam date and time: 06/18/2020 3:09 PM Age: 79 years old Clinical indication: Other: TIA TECHNIQUE: Imaging protocol: XR of the chest Views: 2 views. COMPARISON: No relevant prior studies available. FINDINGS: Lungs: Unremarkable. No consolidation. Pleural spaces: Unremarkable. No pleural effusion. No pneumothorax. Heart/Mediastinum: Unremarkable. No cardiomegaly. Bones/joints: Unremarkable. IMPRESSION: No acute findings. MR Angiogram Head Without Contrast, Arteries Exam date and time: 06/18/2020 4:21 PM Age: 79 years old Clinical indication: Other: TIA TECHNIQUE: Imaging protocol: MR angiogram head without contrast. Exam focused on the arteries. 3D rendering (Not supervised by radiologist): MIP and/or 3D reconstructed images were created by the technologist. COMPARISON: CT BRAIN CTA 03/22/2020 12:46 PM FINDINGS: ANTERIOR CIRCULATION: Right internal carotid artery: Intracranial segment is patent with no significant stenosis. No aneurysm. Right middle cerebral artery: No occlusion or significant stenosis. No aneurysm. Right anterior cerebral artery: No occlusion or significant stenosis. No aneurysm. Left internal carotid artery: Intracranial segment is patent with no significant stenosis. No aneurysm. Left middle cerebral artery: No occlusion or significant stenosis. No aneurysm. Left anterior cerebral artery: No occlusion or significant stenosis. No aneurysm. POSTERIOR CIRCULATION: Right vertebral artery: No occlusion or significant stenosis. No aneurysm. Left vertebral artery: No occlusion or significant stenosis. No aneurysm. Basilar artery: No occlusion or significant stenosis. No aneurysm. Right posterior cerebral artery: No occlusion or significant stenosis. No aneurysm. Left posterior cerebral artery: No occlusion or significant stenosis. No aneurysm. IMPRESSION: Unremarkable MR angiogram of the brain. Lab Data Lab results reviewed: Yes I reviewed the patient's lab results. Labs: Laboratory Tests Range/Units 06/18/20 06/18/20 06/18/20 15:33 15:33 17:35 WBC (4.4-10.8) 10^3/uL 6.31 RBC (3.93-5.22) 10^6/uL 4.45 Hgb (11.2-15.7) g/dL 13.1 Hct (36.0-46.0) % 38.9 MCV (80-95) fL 87.4 MCH (27.0-33.0) pg 29.4 MCHC (32.0-36.0) % 33.7 RDW (11.7-14.6) % 12.1 Plt Count (130-400) 10^3/uL 213 MPV (8.0-11.0) fL 10.6 Immature Gran % 0.0 Neutrophils % 53.4 Lymphocytes % 33.3 Monocytes % 10.1 Eosinophils % 2.9 Basophils % 0.3 Nucleated RBC % % 0 Absolute Neutrophils (1.2-6.7) 10^3/uL 3.37 Absolute Lymphocytes (1.2-3.4) 10^3/uL 2.10 Absolute Monocytes (0.1-0.8) 10^3/uL 0.64 Absolute Eosinophils (0.0-0.7) 10^3/uL 0.18 Absolute Basophils (0.0-0.2) 10^3/uL 0.02 Sodium (136-145) mmol/L 137 Potassium (3.5-5.1) mmol/L 4.4 Chloride (98-107) mmol/L 99 Carbon Dioxide (21.0-32.0) mmol/L 26.1 Anion Gap (3-11) mmol/L 11.9 H BUN (7-18) mg/dL 12 Creatinine (0.55-1.02) mg/dL 0.7 Estimated GFR/1.73 m2 (mL/min/1.73m2) >= 60.00 Glucose (74-106) mg/dL 190 H Calcium (8.5-10.1) mg/dL 9.0 Magnesium (1.8-2.4) mg/dL 1.5 L Total Bilirubin (0.2-1.0) mg/dL 0.2 AST (15-37) U/L 19 ALT (14-59) U/L 27 Alkaline Phosphatase (46-116) U/L 71 Troponin I (<0.06) ng/mL < 0.05 Total Protein (6.4-8.2) g/dL 7.1 Albumin (3.4-5.0) g/dL 3.9 TSH (0.36-3.74) uIU/mL 1.22 Urine Color (Yellow) Yellow Urine Clarity (Clear) Clear Urine pH (5-8) 6.5 Ur Specific [place] (1.005-1.025) 1.020 Urine Protein (Negative) mg/dL Negative Urine Ketones (Negative) mg/dL 15 H Urine Blood (Negative) Negative Urine Nitrite (Negative) Negative Urine Bilirubin (Negative) Negative Urine Urobilinogen (Up TO 0.2) EU/dL 0.2 Ur Leukocyte Esterase (Negative) Negative Urine Glucose (Negative) mg/dL Negative ECG Data Attestation: I personally reviewed and interpreted this ECG (s) as follows: Interpretation: Rate of 82, sinus, T wave inversion in aVL. No STEMI. MO 184. QRS 81. QTc 444. HPI General Mode of arrival: ambulatory . Date/Time Provider Initiated Documentation: 06/18/20 14:52 . Limitations to Documentation: no limitations . Information obtained by: patient . HPI Narrative: Patient is a 79-year-old female with a history of hypertension, hyperlipidemia, diabetes presents for a 10-minute episode of garbled speech that occurred at 1 PM today while she was speaking on the phone with her friend. Patient states she has been feeling her normal self up until today at 1 PM when she was talking to her friend over the phone and her friend felt that she could not understand her. Patient states that this time she felt she could not get the appropriate words out and this led approximately 10 minutes and then resolved. Patient admits to some diffuse head pressure that is currently 5/10 but otherwise denies any dizziness, chest pain, shortness of breath, unilateral extremity numbness or weakness, new meds, recent travel or sick contacts. Patient states she had a right intraocular lens implant from Dr. Ham yesterday. Related Data Home Medications Medication Instructions Recorded Confirmed Essiac Tea 125 mg PO DAILY 12/28/13 06/18/20 ascorbic acid (vitamin C) [Vitamin 500 mg PO DAILY 12/28/13 06/18/20 C] cholecalciferol (vitamin D3) 5,000 unit PO DAILY 12/28/13 06/18/20 chromium amino acid chelate 200 mcg PO DAILY 12/28/13 06/18/20 garlic 1 ea PO DAILY 12/28/13 06/18/20 lisinopril 40 mg PO DAILY tab-cap 12/28/13 06/18/20 metformin 1,000 mg PO BID tab-cap 12/28/13 06/18/20 omega-3 fatty acids-fish oil 1 ea PO DAILY 12/28/13 06/18/20 vitamin A 25,000 unit PO DAILY 12/28/13 06/18/20 vitamin B complex 1 ea PO DAILY 12/28/13 06/18/20 vitamin E 400 unit PO DAILY 12/28/13 06/18/20 alpha lipoic acid 200 mg PO DAILY 01/17/16 06/18/20 cranberry extract 500 mg PO DAILY 06/13/20 06/18/20 insulin glargine [Lantus Solostar 8 unit SUBCUT HS 06/13/20 06/18/20 U-100 Insulin] magnesium 125 mg PO DAILY 06/13/20 06/18/20 taurine 1,600 mg PO DAILY 06/13/20 06/18/20 Allergies Allergy/AdvReac Type Severity Reaction Status Date / Time Penicillins Allergy Severe Other (See Unverified 06/18/20 15:03 Comment) saxagliptin HCl Allergy Severe Other (See Unverified 06/18/20 15:03 [From Onglyza] Comment) prednisone AdvReac Unknown Unverified 06/18/20 15:03 General Stated Complaint: CVA/TIA EVA: 2 Review of Systems All systems reviewed & are unremarkable except as noted in HPI and below Constitutional Constitutional: Reports as per HPI, Denies chills and Denies fever(s) Eyes Eyes: Denies blurry vision ENT Ears, Nose, Mouth, and Throat: Denies dizziness, Denies sore throat and Denies throat swelling Cardiovascular Cardiovascular: Denies chest pain and Denies dyspnea Respiratory Respiratory: Denies cough and Denies dyspnea Gastrointestinal Gastrointestinal: Denies abdominal pain, Denies diarrhea and Denies vomiting Genitourinary Genitourinary: Denies hematuria and Denies dysuria Musculoskeletal Musculoskeletal: Denies back pain and Denies numbness Integumentary/Breasts Skin/Breast: Denies lesions and Denies rash Neurologic Neurologic: Denies dizziness, Denies localized weakness, Denies numbness and Reports other (Speech deficit) Allergic/Immunologic Allergic/Immunologic: Denies throat swelling [facility] Medical History (Updated 06/18/20 @ 18:31 by Tani Robledo) Alopecia Arthritis Congenital ectodermal dysplasia Constipation Contact dermatitis Cystitis Deviated nasal septum Diabetes 2006 Diabetic peripheral neuropathy Dry eye syndrome pt sb Esophagitis Herpes zoster Hyperlipidemia Hypertension Hyponatremia Microalbuminuric diabetic nephropathy Neck stiffness Osteopenia Venous insufficiency Surgical History Total replacement of hip (~2000) Social History Smoking/Tobacco Use Status: Never Smoking risk assessment performed?: Yes Alcohol Intake: never Drug use: Never Substance use type: does not use Current gender identity: female Do you feel safe at home: Yes Do you feel safe in your relationship?: Yes Exam Const General: cooperative, no acute distress and other (Tearful) Orientation: alert, awake and oriented x3 HENMT Head: normal to inspection Ears: hearing grossly normal bilaterally and external ears normal General nose exam: external nose normal Face and sinus: normal facial exam Mouth: oral mucosae normal Teeth and gingiva: dentures Eyes General: appearance normal, both eyes and all related structures Eyelids: eyelids normal Pupils: PERRL EOM: EOM intact bilaterally Neck Neck: normal visual inspection Lymphatic: no lymphadenopathy noted Chest Chest: normal inspection of the chest Resp Effort & Inspection: normal respiratory effort and able to speak in complete sentences Auscultation: clear to auscultation bilaterally Cardio Rate: regular rate Rhythm: regular rhythm GI Inspection: normal to inspection Palpation: soft, not firm, no guarding, no hepatosplenomegaly, no masses and nontender Auscultation: normal bowel sounds Back/Spine/Pelvis Back: no CVA tenderness Skin General skin exam: no rashes or lesions noted Neuro General: patient alert, patient awake, gait normal, moves all extremities and no meningeal signs Cranial Nerves: CN's II-XI intact bilaterally Cognition: normal cognition Speech: speech normal Gait: normal gait Motor: muscle tone normal throughout and strength 5/5 throughout Sensory Exam: no sensory deficits noted Extrem General: normal to inspection, full ROM and capillary refill normal Psych Appearance: grossly normal Mental Status: mental status grossly normal Speech and Movement: speech and movement normal Affect: normal affect Thought Process: normal Course Vital Signs Vital signs: Vital Signs Temperature 97.5 F L 06/18/20 14:54 Pulse 95 H 06/18/20 14:54 Respiratory Rate 18 06/18/20 14:54 Blood Pressure 192/70 H 06/18/20 14:54 Pulse Oximetry 99 06/18/20 14:54 Temperature 97.5 F L 06/18/20 14:54 Temperature Source Skin 06/18/20 14:54 Pulse 95 H 06/18/20 14:54 Respiratory Rate 18 06/18/20 14:54 Blood Pressure 192/70 H 06/18/20 14:54 Blood Pressure Position Sitting 06/18/20 14:54 Pulse Oximetry 99 06/18/20 14:54 Oxygen Delivery Method Room Air 06/18/20 14:54 Oxygen Flow Rate 0 06/18/20 14:54
--- NOTE | 2020-06-18 15:30 | DI.MRI_ITS ---
EXAM: MR BRAIN WO CLINICAL HISTORY: garbled speech, r/o cva. TECHNIQUE: Multiplanar multisequence MRI of the brain was performed. CONTRAST MATERIAL: Noncontrast COMPARISON: MR MR BRAIN WO from 04/19/2020 FINDINGS: VENTRICLES AND EXTRA AXIAL SPACES: Normal in size and morphology for the patient's age. Mild atrophy . HEMORRHAGE: None. CEREBRAL PARENCHYMA: No focus of restricted diffusion to suggest acute infarct. No space-occupying le jama identified. Stable scattered high signal white matter lesions consistent with microvascular dis ease. MIDLINE SHIFT: None. BRAINSTEM/CEREBELLUM: Normal. VISUALIZED PARANASAL SINUSES/MASTOIDS: Clear. OTHER FINDINGS: Vascular flow voids are intact. Orbits are unremarkable. IMPRESSION: Stable white matter lesions likely reflecting chronic microvascular ischemia. No acute abnormality. DATA REPOSITORY:
[2020-06-18 15:42] LABS: Absolute Basophil Count 0.02 10^3/uL (0.0-0.2); Absolute Eosinophil Count 0.18 10^3/uL (0.0-0.7); Absolute Monocyte Count 0.64 10^3/uL (0.1-0.8); Absolute Neutrophil Count 3.37 10^3/uL (1.2-6.7); Basophils % 0.3; Eosinophils % 2.9; HCT 38.9 % (36.0-46.0); HGB 13.1 g/dL (11.2-15.7); Lymphocytes % 33.3; MCH 29.4 pg (27.0-33.0); MCHC 33.7 % (32.0-36.0); MCV 87.4 fL (80-95); MPV 10.6 fL (8.0-11.0); Monocytes % 10.1; Neutrophils % 53.4; Nucleated RBC 0 %; Platelet Count 213 10^3/uL (130-400); RBC 4.45 10^6/uL (3.93-5.22); RDW 12.1 % (11.7-14.6); RDW-SD 38.9 fL; WBC 6.31 10^3/uL (4.4-10.8)
[2020-06-18] MEDS: Normal Saline 250 ML 500 ML IV (16:00)
[2020-06-18 16:08] LABS: ALT 27 U/L (14-59); AST 19 U/L (15-37); Albumin 3.9 g/dL (3.4-5.0); Alkaline Phosphatase 71 U/L (46-116); Anion Gap 11.9 mmol/L (3-11); BUN 12 mg/dL (7-18); Bilirubin, Total 0.2 mg/dL (0.2-1.0); CO2 26.1 mmol/L (21.0-32.0); CREATININE 0.7 mg/dL (0.55-1.02); Chloride 99 mmol/L (98-107); Glucose 190 mg/dL (74-106); Magnesium 1.5 mg/dL (1.8-2.4); Potassium 4.4 mmol/L (3.5-5.1); Sodium 137 mmol/L (136-145); Total Protein 7.1 g/dL (6.4-8.2)
[2020-06-18 16:10] LABS: Troponin I < 0.05 ng/mL (<0.06)
--- NOTE | 2020-06-18 16:35 | DI.MRI_ITS ---
CLINICAL HISTORY: garbled speech, r/o cva. TECHNIQUE: Multiplanar multisequence MRA of the brain was performed. IV Contrast: mL of Magnevist contrast administered. COMPARISON: CT Angiography of the head and neck dated 22 March 2020 FINDINGS: Carotid Arteries: Petrous: Normal. Cavernous: Normal. Cerebral: Normal. Middle Cerebral Arteries: Right: No aneurysm or significant stenosis. Left: No aneurysm or significant stenosis. Anterior Cerebral Arteries: Right: No aneurysm or significant stenosis. Left: No aneurysm or significant stenosis. Vertebral Arteries: Right: No aneurysm or significant stenosis. Left: No aneurysm or significant stenosis. . Basilar Artery: No aneurysm or significant stenosis. Small Vessels: No evidence of beading. IMPRESSION: Normal MRA examination of the [place]. DATA REPOSITORY:
--- NOTE | 2020-06-18 16:38 | DI.VRAD_ITS ---
PROCEDURE INFORMATION: Exam: MR Head Without Contrast Exam date and time: 06/18/2020 4:19 PM Age: 79 years old Clinical indication: Other: TIA TECHNIQUE: Imaging protocol: MR of the head without contrast. 3D rendering (Not supervised by radiologist): MIP and/or 3D reconstructed images were created by the technologist. COMPARISON: MR BRAIN WO 04/19/2020 11:01 AM FINDINGS: Brain: No acute intra-cranial infarct. No abnormal extra axial fluid collections. Mild, scattered foci of long T2 relaxation in the periventricular and subcortical white matter which are nonspecific, but most likely related to chronic microvascular disease. The major intracranial vascular structures at the skull base appear patent. Cerebral ventricles: Ventricles and sulci are normal for the patient's stated age of 76 years. Bones/joints: Unremarkable. Paranasal sinuses: Paranasal sinuses are clear. Mastoid air cells: Normal as visualized. No mastoid effusion. Orbital cavity: Unremarkable. Soft tissues: Unremarkable. IMPRESSION: Chronic small vessel ischemic changes. No evidence of acute infarct or other acute abnormality. Dictated and Authenticated by: Santos Flores MD. Ordering:RUCHI Carrion MD
--- NOTE | 2020-06-18 16:39 | DI.VRAD_ITS ---
PROCEDURE INFORMATION: Exam: XR Chest, 2 Views Exam date and time: 06/18/2020 3:09 PM Age: 79 years old Clinical indication: Other: TIA TECHNIQUE: Imaging protocol: XR of the chest Views: 2 views. COMPARISON: No relevant prior studies available. FINDINGS: Lungs: Unremarkable. No consolidation. Pleural spaces: Unremarkable. No pleural effusion. No pneumothorax. Heart/Mediastinum: Unremarkable. No cardiomegaly. Bones/joints: Unremarkable. IMPRESSION: No acute findings. Dictated and Authenticated by: Santos Flores MD. Ordering:RUCHI Carrion MD
--- NOTE | 2020-06-18 16:43 | DI.VRAD_ITS ---
PROCEDURE INFORMATION: Exam: MR Angiogram Head Without Contrast, Arteries Exam date and time: 06/18/2020 4:21 PM Age: 79 years old Clinical indication: Other: TIA TECHNIQUE: Imaging protocol: MR angiogram head without contrast. Exam focused on the arteries. 3D rendering (Not supervised by radiologist): MIP and/or 3D reconstructed images were created by the technologist. COMPARISON: CT BRAIN CTA 03/22/2020 12:46 PM FINDINGS: ANTERIOR CIRCULATION: Right internal carotid artery: Intracranial segment is patent with no significant stenosis. No aneurysm. Right middle cerebral artery: No occlusion or significant stenosis. No aneurysm. Right anterior cerebral artery: No occlusion or significant stenosis. No aneurysm. Left internal carotid artery: Intracranial segment is patent with no significant stenosis. No aneurysm. Left middle cerebral artery: No occlusion or significant stenosis. No aneurysm. Left anterior cerebral artery: No occlusion or significant stenosis. No aneurysm. POSTERIOR CIRCULATION: Right vertebral artery: No occlusion or significant stenosis. No aneurysm. Left vertebral artery: No occlusion or significant stenosis. No aneurysm. Basilar artery: No occlusion or significant stenosis. No aneurysm. Right posterior cerebral artery: No occlusion or significant stenosis. No aneurysm. Left posterior cerebral artery: No occlusion or significant stenosis. No aneurysm. IMPRESSION: Unremarkable MR angiogram of the brain. Dictated and Authenticated by: Santos Flores MD. Ordering:RUCHI Carrion MD
[2020-06-18] MEDS: MAGNESIUM SULFATE 2 GM/50 ML BAG IVPB (16:53)
[2020-06-18 17:53] LABS: Clarity Clear (Clear); Leukocyte Esterase Negative (Negative); Nitrite Negative (Negative); pH 6.5 (5-8)
[2020-06-18 17:54] LABS: Bilirubin Negative (Negative); Blood Negative (Negative); Glucose Negative (Negative); Ketones 15 mg/dL (Negative); Urobilinogen 0.2 EU/dL (Up TO 0.2)
--- NOTE | 2020-06-18 18:29 | HPE_ITS ---
Date of service: 06/18/20 Time of Service: 18:29 Assessment and Plan Assessment and plan (1) TIA (transient ischemic attack): Start date: 06/18/20 Status: Acute Assessment and plan: This is a 79-year-old lady with transient ischemic symptoms which appear to be involving the left cerebral hemisphere with garbled speech. Imaging thus far has been negative and she had been placed on full dose aspirin which will be continued for 1 week then reduce to baby aspirin daily. She will be scheduled for echocardiogram and carotid Dopplers today on observation and have PT/OT and SP evaluation. She has had no further events during her observation and cardiac monitoring has revealed sinus rhythm with bradycardia with the patient not on a beta-ghanshyam. Patient's risk factors include hypertension and diabetes. She is a full code. (2) Type 2 diabetes mellitus: Status: Chronic Assessment and plan: Hold usual treatment while hospitalized and do mealtime and bedtime glucometers with short acting insulin coverage. Qualifiers: Diabetes mellitus complication detail: with polyneuropathy Diabetes mellitus complication status: with neurologic complications Diabetes mellitus jail insulin use: with computer terminal operator use Qualified Code(s): E11.42 - Type 2 diabetes mellitus with diabetic polyneuropathy; Z79.4 - buttermaker helper (current) use of insulin (3) Hypertension: Status: Chronic Assessment and plan: Continue lisinopril at lower dose in divided doses with permissive hypertension during patient's observation status post TIA. Qualifiers: Hypertension type: essential hypertension Qualified Code(s): I10 - Essential (primary) hypertension History of Present Illness History of Present Illness Chief Complaint: Garbled speech Narrative: This is a 79-year-old female patient who recently had cataract surgery with lens implant in her right eye, still wearing eye protection who was talking on the phone with her friend whenever she began to have difficulty speaking with the patient thinking clearly but not able to say what she wanted to say. This occurred at 1 PM the afternoon of observation. She reported to the ED after a 10-minute episode of garbled speech and not been able to say appropriate words for conversation. She did have head pressure but no headache but had no palpitations, chest pain or other focal neurological complaints. She denied any shortness of breath. At the time I saw the patient she was having no neurological complaints and no headache. Imaging of the head thus far was negative and she was started on full dose aspirin which was to be continued for 1 week then reduce to baby aspirin daily. She was on no anticoagulation prior to this. She has no history of cardiac dysrhythmia. Her right intraocular lens implant was performed by Dr. Ham the day prior to observation. The patient does have a history of diabetes and hypertension otherwise mostly takes herbs and supplements. 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 Review of Systems Narrative: 13 point review of systems otherwise unrevealing or stable. [facility] Medical History (Updated 06/19/20 @ 06:58 by Tani Robledo) Alopecia Arthritis Congenital ectodermal dysplasia Constipation Contact dermatitis Cystitis Deviated nasal septum Diabetes 2006 Diabetic peripheral neuropathy Dry eye syndrome pt sb Esophagitis Herpes zoster Hyperlipidemia Hypertension Hyponatremia Microalbuminuric diabetic nephropathy Neck stiffness Osteopenia Venous insufficiency Surgical History Total replacement of hip (~2000) Social History Smoking/Tobacco Use Status: Never Smoking risk assessment performed?: Yes Alcohol Intake: never Drug use: Never Substance use type: does not use Current gender identity: female Do you feel safe at home: Yes Do you feel safe in your relationship?: Yes Meds Home Medications and Allergies Home Medications Medication Instructions Recorded Confirmed Type Essiac Tea 125 mg PO DAILY 12/28/13 06/18/20 History ascorbic acid (vitamin C) [Vitamin 500 mg PO DAILY 12/28/13 06/18/20 History C] cholecalciferol (vitamin D3) 5,000 unit PO DAILY 12/28/13 06/18/20 History chromium amino acid chelate 200 mcg PO DAILY 12/28/13 06/18/20 History garlic 1 ea PO DAILY 12/28/13 06/18/20 History lisinopril 40 mg PO DAILY tab-cap 12/28/13 06/18/20 History metformin 1,000 mg PO BID tab-cap 12/28/13 06/18/20 History omega-3 fatty acids-fish oil 1 ea PO DAILY 12/28/13 06/18/20 History vitamin A 25,000 unit PO DAILY 12/28/13 06/18/20 History vitamin B complex 1 ea PO DAILY 12/28/13 06/18/20 History vitamin E 400 unit PO DAILY 12/28/13 06/18/20 History alpha lipoic acid 200 mg PO DAILY 01/17/16 06/18/20 History cranberry extract 500 mg PO DAILY 06/13/20 06/18/20 History insulin glargine [Lantus Solostar 8 unit SUBCUT HS 06/13/20 06/18/20 History U-100 Insulin] magnesium 125 mg PO DAILY 06/13/20 06/18/20 History taurine 1,600 mg PO DAILY 06/13/20 06/18/20 History Allergies Allergy/AdvReac Type Severity Reaction Status Date / Time Penicillins Allergy Severe Other (See Unverified 06/18/20 15:03 Comment) saxagliptin HCl Allergy Severe Other (See Unverified 06/18/20 15:03 [From Onglyza] Comment) prednisone AdvReac Unknown Unverified 06/18/20 15:03 Exam Narrative Exam Narrative: General: Patient appears appropriate for age, in no acute distress though slightly anxious. She is alert and oriented x3. She is moderately obese. HEENT: Normocephalic with balding hair, face is atraumatic but she is wearing a protective clear shield over her right eye, eyes with pupils equal and reactive to light symmetrically, extraocular movement intact and sclera anicteric. Oropharynx with moist mucosa and fair dentition. External ears and nose normal. Neck: Supple without JVD and no auscultated bruits. Back: Stooped posture without CVA tenderness. Lungs: Clear to auscultation and percussion. Heart: Regular rate and rhythm with no murmurs or gallops appreciated. Breast: Exam deferred. Abdomen: Slightly obese contour, soft and nontender to palpation with no palpable hepatosplenomegaly. Bowel sounds positive in all quadrants. Genitalia/rectal: Exam deferred. Extremities: Without clubbing, cyanosis or pitting edema. Peripheral pulses intact with good capillary refill. Skin: Pale, warm and dry with actinic changes over sun exposed areas. Normal turgor and slightly rough texture. Neuro: Cranial nerves II through XII grossly intact, no focalizing motor deficit s. No Babinski's. Psych: Normal mood and affect though slightly anxious. Normal thought processes. Remote and recent memory intact. Results Imaging Imaging Studies: Exam: MR Head Without Contrast Exam date and time: 06/18/2020 4:19 PM Age: 79 years old Clinical indication: Other: TIA TECHNIQUE: Imaging protocol: MR of the head without contrast. 3D rendering (Not supervised by radiologist): MIP and/or 3D reconstructed images were created by the technologist. COMPARISON: MR BRAIN WO 04/19/2020 11:01 AM FINDINGS: Brain: No acute intra-cranial infarct. No abnormal extra axial fluid collections. Mild, scattered foci of long T2 relaxation in the periventricular and subcortical white matter which are nonspecific, but most likely related to chronic microvascular disease. The major intracranial vascular structures at the skull base appear patent. Cerebral ventricles: Ventricles and sulci are normal for the patient's stated age of 76 years. Bones/joints: Unremarkable. Paranasal sinuses: Paranasal sinuses are clear. Mastoid air cells: Normal as visualized. No mastoid effusion. Orbital cavity: Unremarkable. Soft tissues: Unremarkable. IMPRESSION: Chronic small vessel ischemic changes. No evidence of acute infarct or other acute abnormality. Dictated and Authenticated by: Santos Flores MD. Exam: MR Angiogram Head Without Contrast, Arteries Exam date and time: 06/18/2020 4:21 PM Age: 79 years old Clinical indication: Other: TIA TECHNIQUE: Imaging protocol: MR angiogram head without contrast. Exam focused on the arteries. 3D rendering (Not supervised by radiologist): MIP and/or 3D reconstructed images were created by the technologist. COMPARISON: CT BRAIN CTA 03/22/2020 12:46 PM FINDINGS: ANTERIOR CIRCULATION: Right internal carotid artery: Intracranial segment is patent with no significant stenosis. No aneurysm. Right middle cerebral artery: No occlusion or significant stenosis. No aneurysm. Right anterior cerebral artery: No occlusion or significant stenosis. No aneurysm. Left internal carotid artery: Intracranial segment is patent with no significant stenosis. No aneurysm. Left middle cerebral artery: No occlusion or significant stenosis. No aneurysm. Left anterior cerebral artery: No occlusion or significant stenosis. No aneurysm. POSTERIOR CIRCULATION: Right vertebral artery: No occlusion or significant stenosis. No aneurysm. Left vertebral artery: No occlusion or significant stenosis. No aneurysm. Basilar artery: No occlusion or significant stenosis. No aneurysm. Right posterior cerebral artery: No occlusion or significant stenosis. No aneurysm. Left posterior cerebral artery: No occlusion or significant stenosis. No aneurysm. IMPRESSION: Unremarkable MR angiogram of the brain. Dictated and Authenticated by: Santos Flores MD. EXAM: CT HEAD WO CLINICAL HISTORY: slurred speech, r/o acute cva. TECHNIQUE: Imaging Protocol: Axial computed tomography images with coronal and sagittal reformatted images were created and reviewed COMPARISON: CT CT BRAIN CTA from 03/22/2020 FINDINGS: Ventricles and Extra axial spaces: Normal in size and morphology for the patient's age. Hemorrhage: None. Cerebral parenchyma: There are areas of decreased attenuation in the white matter most consistent with chronic microvascular ischemic disease. No evidence of an acute territorial infarct. Midline shift: None. Brainstem/Cerebellum: Normal. Calvarium: Normal. Visualized Paranasal sinuses/Mastoids: Clear. Soft Tissues: Unremarkable. IMPRESSION: No acute intracranial process. Dictated By: Kunal Cardenas M.D. 06/18/20 1546 Exam: XR Chest, 2 Views Exam date and time: 06/18/2020 3:09 PM Age: 79 years old Clinical indication: Other: TIA TECHNIQUE: Imaging protocol: XR of the chest Views: 2 views. COMPARISON: No relevant prior studies available. FINDINGS: Lungs: Unremarkable. No consolidation. Pleural spaces: Unremarkable. No pleural effusion. No pneumothorax. Heart/Mediastinum: Unremarkable. No cardiomegaly. Bones/joints: Unremarkable. IMPRESSION: No acute findings. Dictated and Authenticated by: Santos Flores MD. Labs Result diagrams: 06/18/20 15:33 06/18/20 15:33 Labs: Laboratory Results - last 24 hr 06/18/20 06/18/20 06/18/20 15:33 15:33 17:35 WBC 6.31 RBC 4.45 Hgb 13.1 Hct 38.9 MCV 87.4 MCH 29.4 MCHC 33.7 RDW 12.1 Plt Count 213 MPV 10.6 Immature Gran % 0.0 Neutrophils % 53.4 Lymphocytes % 33.3 Monocytes % 10.1 Eosinophils % 2.9 Basophils % 0.3 Nucleated RBC % 0 Absolute Neutrophils 3.37 Absolute Lymphocytes 2.10 Absolute Monocytes 0.64 Absolute Eosinophils 0.18 Absolute Basophils 0.02 Sodium 137 Potassium 4.4 Chloride 99 Carbon Dioxide 26.1 Anion Gap 11.9 H BUN 12 Creatinine 0.7 Estimated GFR/1.73 m2 >= 60.00 Glucose 190 H Calcium 9.0 Magnesium 1.5 L Total Bilirubin 0.2 AST 19 ALT 27 Alkaline Phosphatase 71 Troponin I < 0.05 Total Protein 7.1 Albumin 3.9 Urine Color Yellow Urine Clarity Clear Urine pH 6.5 Ur Specific [place] 1.020 Urine Protein Negative Urine Ketones 15 H Urine Blood Negative Urine Nitrite Negative Urine Bilirubin Negative Urine Urobilinogen 0.2 Ur Leukocyte Esterase Negative Urine Glucose Negative Last Vital Signs Temp 36.4 C L 06/18/20 14:54 Pulse 95 H 06/18/20 14:54 Resp 18 06/18/20 14:54 BP 192/70 H 06/18/20 14:54 Pulse Ox 99 06/18/20 14:54 COVID-19 Screening Have you, or household traveled for leisure in last 14 days?: No Had IN PERSON contact w/suspected or confirmed C-19 person: No
[2020-06-18 18:31] VITALS: BP 177/73; PULSE 71; RESP 16; TEMP 36.9; O2SAT 96
[2020-06-18 18:47] VITALS: BP 183/79; PULSE 73; RESP 14; TEMP 37.1; O2SAT 96
[2020-06-18] MEDS: Aspirin 325 MG TAB PO (18:55)
[2020-06-18 18:57] LABS: TSH (W/Ref FT4) 1.22 uIU/mL (0.36-3.74)
[2020-06-18 22:57] VITALS: PULSE 69
[2020-06-18 23:08] VITALS: BP 144/75; PULSE 70; RESP 18; TEMP 36.8; O2SAT 99
[2020-06-18] MEDS: Docusate Sodium 100 MG CAP PO (23:11)
--- NOTE | 2020-06-19 | DI.US_ITS ---
EXAM: US CAROTID CLINICAL HISTORY: TIA. TECHNIQUE: Ultrasound carotids performed using grayscale, color-flow, and spectral Doppler imaging. COMPARISON: CT CT BRAIN CTA from 03/22/[address] BRAIN CTA from 03/22/2020 FINDINGS: RIGHT CAROTID ARTERY: Plaque: Minimal. Velocity elevation: None. LEFT CAROTID ARTERY: Plaque: Mild calcific plaque in the proximal external carotid artery Velocity elevation: None. VERTEBRAL ARTERIES: Antegrade flow. Measurements: R Bulb: 51.4cm/s PS / 14.1cm/s ED R CCA: 81cm/s PS / 18cm/s ED R ECA: 99cm/s PS / 9cm/s ED R ICA Prox: 61.7cm/s PS /18cm/s ED R ICA Mid: 71.3cm/s PS / 21.9cm/s ED R ICA Distal: 79.7cm/s PS /23.8cm/s ED R Vert: 50.8cm/s PS / 14.1cm/s ED R SVR: 0.87 R DVR: 1.2 L Bulb: 76cm/s PS /14.9cm/s ED L CCA: 78.5cm/s PS / 19cm/s ED L ECA: 113.65cm/s PS /8.7cm/s ED L ICA Prox:86.8cm/s PS / 18.2cm/s ED L ICA Mid: 76.8cm/sPS / 18.2cm/s ED L ICA Distal: 60.3cm/s PS / 18.2cm/s ED L Vert: 49.6cm/s PS / 12.4cm/s ED L SVR: 0.74 L DVR: 1.1 Thyroid: There is a solid i so to hyperechoic nodule in the right lobe of the thyroid measuring 3.7 x 1.9 x 1.8 cm. It has a heterogeneous appearance and shows punctate echogenic foci. The margins are ill-defined. Findings are consistent with a TI-RADS category 5 lesion. Biopsy is recommended. IMPRESSION: 1. No evidence for hemodynamically significant carotid stenosis. 2. Unexpected finding of 3.7 centimeter TR 5 nodule. Biopsy is recommended. Criteria for Carotid Stenosis: Normal: ICA PSV <125 cm/s no plaque or intimal thickening is visible. <50% stenosis: ICA PSV <125 cm/s and plaque or intimal thickening is visible. 50-69% stenosis: ICA PSV is 125-250 cm/s and plaque is visible. >70% stenosis to near occlusion: ICA PSV >250 cm/s with visible plaque and luminal narrowing. DATA REPOSITORY:
[2020-06-19 03:21] VITALS: BP 149/76; PULSE 60; RESP 18; TEMP 36.5; O2SAT 96
[2020-06-19] MEDS: Normal Saline Flush 10 ML SYR IVP ×2 (03:24→09:59)
[2020-06-19 07:00] VITALS: PULSE 69
[2020-06-19 07:17] LABS: Abs Immature Grans 0.01 10^3/uL (0.0-0.06); Absolute Basophil Count 0.04 10^3/uL (0.0-0.2); Absolute Lymphocyte Count 2.72 10^3/uL (1.2-3.4); Absolute Monocyte Count 0.76 10^3/uL (0.1-0.8); Absolute Neutrophil Count 3.05 10^3/uL (1.2-6.7); Basophils % 0.6; Eosinophils % 2.9; HCT 39.7 % (36.0-46.0); HGB 13.4 g/dL (11.2-15.7); Immature Grans % 0.1; Lymphocytes % 40.1; MCH 29.2 pg (27.0-33.0); MCHC 33.8 % (32.0-36.0); MCV 86.5 fL (80-95); MPV 10.7 fL (8.0-11.0); Monocytes % 11.2; Neutrophils % 45.1; Nucleated RBC 0 %; Platelet Count 222 10^3/uL (130-400); RBC 4.59 10^6/uL (3.93-5.22); RDW 11.9 % (11.7-14.6); RDW-SD 37.5 fL; WBC 6.78 10^3/uL (4.4-10.8)
[2020-06-19 07:47] LABS: ALT 21 U/L (14-59); AST 14 U/L (15-37); Albumin 3.8 g/dL (3.4-5.0); Alkaline Phosphatase 70 U/L (46-116); Anion Gap 12.4 mmol/L (3-11); BUN 11 mg/dL (7-18); Bilirubin, Total 0.5 mg/dL (0.2-1.0); CO2 24.6 mmol/L (21.0-32.0); CREATININE 0.7 mg/dL (0.55-1.02); Calcium 8.9 mg/dL (8.5-10.1); Chloride 99 mmol/L (98-107); Glucose 154 mg/dL (74-106); Sodium 136 mmol/L (136-145); Total Protein 7.2 g/dL (6.4-8.2)
[2020-06-19 07:51] VITALS: BP 157/72; PULSE 57; RESP 16; TEMP 36.5; O2SAT 98
[2020-06-19] MEDS: Lisinopril 10 MG TAB PO (07:52)
[2020-06-19] MEDS: Insulin Aspart 300 UNITS/3 ML PEN SC ×2 (07:53→12:35)
--- NOTE | 2020-06-19 08:56 | OT.INIE ---
Occupational Therapy Notes Inpatient Occupational Therapy Evaluation Date: 06/19/20 Referring Doctor:Tani Martino MD OT Orders: Non-Urgent Precautions: Fall, standard, Full PATIENT PROFILE/ADMITTING DIAGNOSIS: Pt is a 79 year old female who had a (R) eye cataract surgical procedure on 06/18/20. She was brought to the ED for a suspected TIA due to garbled speech and lack of motor control at the time and admitted to Med Surg. Past Medical History: Medical History (Updated 06/19/20 @ 06:58 by Tani Robledo) Alopecia Arthritis Congenital ectodermal dysplasia Constipation Contact dermatitis Cystitis Deviated nasal septum Diabetes 2006 Diabetic peripheral neuropathy Dry eye syndrome pt sb Esophagitis Herpes zoster Hyperlipidemia Hypertension Hyponatremia Microalbuminuric diabetic nephropathy Neck stiffness Osteopenia Venous insufficiency Surgical History Total replacement of hip (~2000) Social History/Home Situation: Pt states that she lives in an apartment with 6 stairs to enter. She notes that she lives alone and was (I) at her baseline level of function. She has a license but does not drive as she doesn't have a car. She states that she gets a ride with friends and notes that this works well for her. She states that she has a tub shower and a shower seat. She does not have grab bars. She was (I) with cooking, cleaning, laundry at baseline level of function. Equipment owned/DME: shower bench SUBJECTIVE: Pt was sitting in bed when OT arrived, she was agreeable to OT session and states that her biggest limitation is going to be the restrictions that she has of no bending forward s/p eye procedure. OBJECTIVE: General Observation: Pleasant and appropriate, able to answer questions, alert and oriented. Mental Status: A&Ox3 Pain: no c/o pain ROM: RUE AROM WFL per assessment L UE AROM WFL per assessment STRENGTH: RUE 4-/5 throughout globally LUE 4/5 throughout globally FUNCTIONAL MOBILITY/ADLS: BATHING Pt denies although has AROM WNL for appropriate technique of ADL performance DRESSING sitting in bed OT educated and trained pt in adaptive equipment including sock aide, dressing stick, shoe horn, and supervisor border department. Pt is limited due to her eye surgery and will need adpative equipment for safety and performance of increased functional (I) throughout her ADL/IADL routines. EATING sitting in chair pt was (I) with eating with ideal technique for food to mouth translation and cutting of food. BALANCE: Static sitting Normal Dynamic Sitting Normal SPECIAL TESTS: Daily Activity Limitations Standardized Measure [facility] AM -PAC ?6 clicks? Daily Activity Inpatient Short Form: Raw score: 18 Standardized score: 38.66 CMS score: 46.65% INFORMED CONSENT/EDUCATION: Pt instructed in purpose of OT Consult and plan of care. ASSESSMENT: Patient is a 79-year-old female referred to occupational therapy services with diagnosis of TIA. Patient presents with clinical signs and symptoms consistent with dx, as demonstrated by the following impairment level findings/functional limitations: Decreased functional activity tolerance, decreased ADLs based on restrictions per eye procedure, decreased functional mobility, decreased LE dressing and bathing. AMPAC score 18 Patient is assessed as a Low 71262 complexity based on the following: History: see above Examination: see functional limitations as noted above Presentation: evolving Decision Making: AMPAC score 18 GOALS Goals x1 week 1. Grooming Standing at sink (I) brushing teeth and hair 2. Dressing sitting in chair (I) UE/LE 3. Bathing standing at sink (I) UE and seated (I) LE 4. Toileting on toilet (I) PLAN OF CARE/TREATMENT PLAN: 1x/day, 5 days/ week x 1week Initiate Occupational Therapy Services for bathing, dressing, grooming, toileting, eating, transfer training. DISCHARGE RECOMMENDATIONS OT feels that pt would benefit from OT services at this time. She states that she is feeling better and is limited due to her vision. HH assessment would be for safety of ADLs in the home setting and further needs for adaptive equipment. Pt is limited based on her surgical procedure to her eye and will require (A) in her home due to her restrictions at this time. TREATMENT TIME/MINUTES/CODES 34504, [id number], 20 minutes (08:25) [facility]
--- NOTE | 2020-06-19 10:10 | PDOC.CMIN ---
- If Service Date Differs Date of service: 06/19/20 Time of Service: 10:10 Care Management Initial Assess REASON FOR HOSPITALIZATION:: TIA PAST MEDICAL HISTORY/PAST SURGICAL HISTORY:: Medical History (Updated 06/19/20 @ 06:58 by Tani Robledo). Alopecia. Arthritis. Congenital ectodermal dysplasia. Constipation. Contact dermatitis. Cystitis. Deviated nasal septum. Diabetes. 2006. Diabetic peripheral neuropathy. Dry eye syndrome. pt sb. Esophagitis. Herpes zoster. Hyperlipidemia. Hypertension. Hyponatremia. Microalbuminuric diabetic nephropathy. Neck stiffness. Osteopenia. Venous insufficiency. Surgical History . Total replacement of hip (~2000) PREVIOUS FUNCTIONAL STATUS/SOCIAL/FAMILY SUPPORTS:: Ananya lives alone in an apartment in [place], [place] . She has 4 children but only one son lives locally. His name is Solomon Gomez and Ananya describes him as helpful and supportive. Ananya staes that she is very active and generally healthy at baseline. She continues to drive but does not own a car. Ananya currently receives services from [facility] such as a weekly meal on Fridays but does not receive any other community services. CURRENT FUNCTIONAL STATUS:: Ananya was sitting up in bed when CM met with her. She was pleasant and open to conversation. Ananya mentioned that she has recently had eye surgery and was told she cannot bend her head down below her waist. She is concerned about how she will be able to change her bed linens and clean her bathroom. Ananya asked if there were services available to help with those things. informed her that houserhold tasks are generally not performed by home health staff. Their services are related to providing nursing care and assisting with ADLs. Ananya shared that she knows a young lady that would like to earn some extra money so will pursue that avenue. ADVANCE DIRECTIVES:: none on file Has patient been provided with info about the portal/API?: Yes Did the patient sign up for the portal?: No CODE STATUS:: Full Code INSURANCE COVERAGE / FINANCIAL ISSUES:: Medicare. Medicaid CURRENT HOME/COMMUNITY SERVICES/EQUIPMENT:: [facility] PRIMARY CARE PHYSICIAN:: [facility] POTENTIAL DISCHARGE NEEDS:: possibly new services PATIENT/FAMILY EDUCATION NEEDS:: Discharge plan, limitations, follow up plan, Ask Me Three TRANSPORTATION:: via private vehicle with family PLAN:: Ananya will be discharged home with no new services. She will follow up with her PCP and plan of care and transport with her son.
[2020-06-19 12:19] VITALS: BP 138/80; PULSE 67; RESP 19; TEMP 36.5; O2SAT 97
--- NOTE | 2020-06-19 12:26 | DSE_ITS ---
Date of service: 06/19/20 DS: Diagnosis Discharge Diagnosis (1) TIA (transient ischemic attack): Status: Acute Asessment and Plan: TIA manifested by transient expressive aphasia, symptoms resolved and patient is at baseline. seen by neurology. possibly had a TIA ~2months ago when she had transient right neil-numbness. Work-up thus far unrevealing to etiology. Recommends extended 30-day cardiac monitoring as further work-up but unfortunately 14 day monitor is only monitor available on discharge and will be placed at discharge. She should continue aspirin 81mg daily along with a statin for secondary stroke prevention. (started on asa 81 mg and atorvastatin 40 mg po daily). Chol 212, LDL 126 HDL 61 trig 125 She should follow-up in neurology clinic in 4-6 weeks echo: EF 60%, no significant valvular disease discharge discussed with Dr Isaac (2) Type 2 diabetes mellitus: Status: Chronic Asessment and Plan: A1C 7.0 continue home medication (3) Hypertension: Status: Chronic Asessment and Plan: continue blood pressure medication (4) Thyroid nodule greater than or equal to 1.5 cm in diameter incidentally noted on imaging study: Status: Acute Asessment and Plan: Thyroid: There is a solid i so to hyperechoic nodule in the right lobe of the thyroid measuring 3.7 x 1.9 x 1.8 cm. It has a heterogeneous appearance and shows punctate echogenic foci. The margins are ill-defined. Findings are consistent with a TI-RADS category 5 lesion. Biopsy is recommended. IMPRESSION: 1. No evidence for hemodynamically significant carotid stenosis. 2. Unexpected finding of 3.7 centimeter TR 5 nodule. Biopsy is recommended. Discharge Plan Disposition Patient Disposition: HOME Condition: Stable Discharge Details Reason For Visit: TIA Admit Date/Time: 06/18/20 18:10 Admit Provider: Tani Robledo Attending Provider: Tani Robledo Primary Care Provider: [facility] [place] Meds and New Rx's Prescriptions: New atorvastatin [Lipitor] 40 mg Tablet 40 mg PO QPM Qty: 30 RF: 0 aspirin 81 mg tablet,delayed release (DR/EC) 81 mg PO DAILY Qty: 30 RF: 0 Continued metformin 500 MG tablet 1,000 mg PO BID RF: 0 vitamin A 25,000 UNIT capsule 25,000 unit PO DAILY RF: 0 lisinopril 20 MG tablet 40 mg PO DAILY RF: 0 ascorbic acid (vitamin C) [Vitamin C] 500 MG capsule, extended release 500 mg PO DAILY RF: 0 vitamin B complex 1 EACH tablet 1 ea PO DAILY RF: 0 vitamin E 400 UNIT capsule 400 unit PO DAILY RF: 0 garlic 1 EACH tablet 1 ea PO DAILY RF: 0 omega-3 fatty acids-fish oil 1 EACH capsule 1 ea PO DAILY RF: 0 cholecalciferol (vitamin D3) 2,000 UNIT tablet 5,000 unit PO DAILY RF: 0 chromium amino acid chelate 400 MCG tablet 200 mcg PO DAILY RF: 0 essiac tea capsule 125 mg PO DAILY RF: 0 alpha lipoic acid 200 MG tablet 200 mg PO DAILY RF: 0 magnesium 100 mg Tablet 125 mg PO DAILY RF: 0 cranberry extract 500 mg Capsule 500 mg PO DAILY RF: 0 Lantus Solostar U-100 Insulin 100 unit/mL (3 mL) insulin pen 8 unit SUBCUT HS RF: 0 taurine 1,000 mg Capsule 1,600 mg PO DAILY RF: 0 Discharge Instructions Instructions: Transient Ischemic Attack (DC) Additional Instructions: you have a nodule on your thyroid that will need follow up evaluation. wear heart monitor as directed. take medication as directed. return for new or worsening symptoms. Stand Alone Forms: Nursing Discharge Form Referrals: Eddi Clancy DO [OSTEOPATHIC DOCTOR] - (thyroid nodule) [facility] [Primary Care Provider] - Dulce Maria Chaney MD [ [facility] STAFF PHYSICIAN] - (4-6 weeks) Activity:: Activity as Tolerated Equipment/Supplies:: No Equipment Needed Diet:: heart healthy Discharge Orders Discharge Orders: Discharge Order (Routine); Ordered 06/19/20 Ordered By: Anne-Marie Johnson Other Ambulatory Orders: Cardiac Event Recorder (Outpt) (ONCE) Location: None Selected Ordered By: Anne-Marie Johnson DS: Summary Time Spent with Patient providing and/or coordinating discharge services: Greater than 30 minutes Status at Discharge Functional status at discharge: independent ambulation Overall status at discharge: patient is back to baseline Mental Status: mental status grossly normal Speech and Movement: speech and movement normal Mood: congruent mood Affect: normal affect Exam Const General: cooperative, healthy appearing, comfortable and no acute distress Nutritional Appearance: average body habitus Orientation: alert, awake and oriented x3 HENMT Head: normal to inspection, normocephalic and atraumatic Face and sinus: normal facial exam Mouth: oral mucosae normal Chest Chest: normal inspection of the chest Resp Effort & Inspection: normal respiratory effort Auscultation: clear to auscultation bilaterally Cardio Rate: regular rate Rhythm: regular rhythm Heart Sounds: no murmurs GI Palpation: soft Auscultation: normal bowel sounds Skin General skin exam: no rashes or lesions noted Neuro General: patient alert, patient awake, patient oriented x3, moves all e xtremities, no focal motor deficits and CN's II-XI intact bilaterally Cranial Nerves: EOM intact bilaterally, no nystagmus, tongue midline and able to elevate shoulders bilaterally Cognition: normal cognition Speech: speech normal Gait: normal gait Motor: muscle tone normal throughout Sensory Exam: no sensory deficits noted Extrem General: normal to inspection, full ROM and no pedal edema Psych Mental Status: mental status grossly normal Speech and Movement: speech and movement normal Mood: congruent mood Affect: normal affect DS: Data Vitals/I&O Vitals and I&O: Vital Signs Temperature 36.5 C 06/19/20 12:19 Temperature Source Tympanic 06/19/20 12:19 Pulse 67 06/19/20 12:19 Pulse Rhythm Regular 06/19/20 08:55 Respiratory Rate 19 06/19/20 12:19 Respiratory Effort Non-Labored 06/19/20 08:55 Respiratory Depth Normal 06/19/20 08:55 Respiratory Pattern Normal 06/19/20 08:55 Blood Pressure 138/80 06/19/20 12:19 Blood Pressure Position Sitting 06/18/20 14:54 Pulse Oximetry 97 06/19/20 12:19 Oxygen Delivery Method Room Air 06/19/20 12:19 Oxygen Flow Rate 0 06/19/20 12:19 Pain Level 0 06/19/20 12:19 Comment 06/18/20 18:47 Intake & Output 06/18/20 06/19/20 06/19/20 23:59 11:59 23:59 Intake Total 900 / 900 650 / 650 Output Total 800 / 800 700 / 700 Balance 100 / 100 -50 / -50 Weight 72.575 kg 70.5 kg Intake: IV 300 / 300 10 Oral 600 / 600 640 / 640 Output: Urine 800 / 800 700 / 700 Other: Urine Color Yellow Yellow Urine Appearance Clear Clear Urine Odor Normal Normal Comment pt's urine bright yellow Bright yellow in color Voiding Methods Toilet Toilet # Voids 1 Data Completed and Pending Labs on day of discharge: Labs from last 24 hours 06/19/20 06/19/20 06/19/20 06:50 06:50 06:50 WBC RBC Hgb Hct MCV MCH MCHC RDW Plt Count MPV Immature Gran % Neutrophils % Lymphocytes % Monocytes % Eosinophils % Basophils % Nucleated RBC % Absolute Neutrophils Absolute Lymphocytes Absolute Monocytes Absolute Eosinophils Absolute Basophils Sodium 136 Potassium 4.0 Chloride 99 Carbon Dioxide 24.6 Anion Gap 12.4 H BUN 11 Creatinine 0.7 Estimated GFR/1.73 m2 >= 60.00 Glucose 154 H Hemoglobin A1c Pending Calcium 8.9 Magnesium Total Bilirubin 0.5 AST 14 L ALT 21 Alkaline Phosphatase 70 Troponin I Total Protein 7.2 Albumin 3.8 Triglycerides Pending Total Cholesterol Pending LDL Cholesterol, Calc Pending HDL Cholesterol Pending TSH Urine Color Urine Clarity Urine pH Ur Specific [place] Urine Protein Urine Ketones Urine Blood Urine Nitrite Urine Bilirubin Urine Urobilinogen Ur Leukocyte Esterase Urine Glucose SARS-CoV-2 (PCR) Nasopharyn COVID-19 PCR Ref Test Perform Site 06/19/20 06/18/20 06/18/20 06:40 18:34 18:22 WBC 6.78 RBC 4.59 Hgb 13.4 Hct 39.7 MCV 86.5 MCH 29.2 MCHC 33.8 RDW 11.9 Plt Count 222 MPV 10.7 Immature Gran % 0.1 Neutrophils % 45.1 Lymphocytes % 40.1 Monocytes % 11.2 Eosinophils % 2.9 Basophils % 0.6 Nucleated RBC % 0 Absolute Neutrophils 3.05 Absolute Lymphocytes 2.72 Absolute Monocytes 0.76 Absolute Eosinophils 0.20 Absolute Basophils 0.04 Sodium Potassium Chloride Carbon Dioxide Anion Gap BUN Creatinine Estimated GFR/1.73 m2 Glucose Hemoglobin A1c Calcium Magnesium Total Bilirubin AST ALT Alkaline Phosphatase Troponin I Total Protein Albumin Triglycerides Total Cholesterol LDL Cholesterol, Calc HDL Cholesterol TSH Cancelled Urine Color Urine Clarity Urine pH Ur Specific [place] Urine Protein Urine Ketones Urine Blood Urine Nitrite Urine Bilirubin Urine Urobilinogen Ur Leukocyte Esterase Urine Glucose SARS-CoV-2 (PCR) Pending Nasopharyn COVID-19 PCR Pending Ref Test Perform Site Pending 06/18/20 06/18/20 06/18/20 17:35 15:33 15:33 WBC 6.31 RBC 4.45 Hgb 13.1 Hct 38.9 MCV 87.4 MCH 29.4 MCHC 33.7 RDW 12.1 Plt Count 213 MPV 10.6 Immature Gran % 0.0 Neutrophils % 53.4 Lymphocytes % 33.3 Monocytes % 10.1 Eosinophils % 2.9 Basophils % 0.3 Nucleated RBC % 0 Absolute Neutrophils 3.37 Absolute Lymphocytes 2.10 Absolute Monocytes 0.64 Absolute Eosinophils 0.18 Absolute Basophils 0.02 Sodium 137 Potassium 4.4 Chloride 99 Carbon Dioxide 26.1 Anion Gap 11.9 H BUN 12 Creatinine 0.7 Estimated GFR/1.73 m2 >= 60.00 Glucose 190 H Hemoglobin A1c Calcium 9.0 Magnesium 1.5 L Total Bilirubin 0.2 AST 19 ALT 27 Alkaline Phosphatase 71 Troponin I < 0.05 Total Protein 7.1 Albumin 3.9 Triglycerides Total Cholesterol LDL Cholesterol, Calc HDL Cholesterol TSH 1.22 Urine Color Yellow Urine Clarity Clear Urine pH 6.5 Ur Specific [place] 1.020 Urine Protein Negative Urine Ketones 15 H Urine Blood Negative Urine Nitrite Negative Urine Bilirubin Negative Urine Urobilinogen 0.2 Ur Leukocyte Esterase Negative Urine Glucose Negative SARS-CoV-2 (PCR) Nasopharyn COVID-19 PCR Ref Test Perform Site [facility] Medical History (Updated 06/19/20 @ 17:05 by Anne-Marie Johnson NP) Alopecia Arthritis Congenital ectodermal dysplasia Constipation Contact dermatitis Cystitis Deviated nasal septum Diabetes 2006 Diabetic peripheral neuropathy Dry eye syndrome pt sb Esophagitis Herpes zoster Hyperlipidemia Hypertension Hyponatremia Microalbuminuric diabetic nephropathy Neck stiffness Osteopenia Venous insufficiency Surgical History Total replacement of hip (~2000) Social History Smoking/Tobacco Use Status: Never Smoking risk assessment performed?: Yes Alcohol Intake: never Drug use: Never Substance use type: does not use Current gender identity: female Do you feel safe at home: Yes Do you feel safe in your relationship?: Yes
[2020-06-19 12:29] LABS: Calculated LDL 126 mg/dL (<100); Cholesterol 212 mg/dL (<200); HDL Cholesterol 61 mg/dL (40-60); Triglyceride 125 mg/dL (<150)
--- NOTE | 2020-06-19 13:47 | PT.INIE ---
Date of service: 06/19/20 Time of Service: 13:47 PT Notes Visit Reasons: TIA (cardiology) Physical Therapy Inpatient Initial Evaluation Date: 06/19/2020 Referring Doctor: Tani Robledo MD PT Orders: PT CONSULT: Limited ability. TIA with garbled speech. Precautions: Fall. Standard. Activity as tolerated. Patient Profile/Admitting Diagnosis: Ananya is a 79-year-old female with past medical history significant for type and hypertension who presented to the ED on 06/18/2020 due to garbled speech. Patient was with transient ischemic attack. PMHX: Medical History (Updated 06/19/20 @ 06:58 by Tani Robledo) Alopecia Arthritis Congenital ectodermal dysplasia Constipation Contact dermatitis Cystitis Deviated nasal septum Diabetes 2006 Diabetic peripheral neuropathy Dry eye syndrome pt sb Esophagitis Herpes zoster Hyperlipidemia Hypertension Hyponatremia Microalbuminuric diabetic nephropathy Neck stiffness Osteopenia Venous insufficiency Surgical History Total replacement of hip (~2000) Social History/Home Situation: Lives alone in an apartment with no steps to enter. Independent with all aspects of ADLs prior to recent admission. Equipment Owned/DME: None Subjective: Agreeable to PT consult. States that she has recently had an eye operation that limits her from bending below her hip for 1 week per her eye surgeon. States that she is can have her other eye done 01 July 2020. Denies pain, and dizziness throughout PT evaluation. No falls in the past 12 months. Objective: General Observation: Telemetry monitoring in place. No other lines attached. No facial asymmetry seen. Mental Status: Alert and oriented x4 Pain: None reported ROM: Right Upper Extremity: Shoulder Flexion WFL. Shoulder abduction WFL. Elbow flexion WFL. Wrist flexion WFL. Opening and closing of hand WFL. Left Upper Extremity: Shoulder Flexion WFL. Shoulder abduction WFL. Elbow flexion WFL. Wrist flexion WFL. Opening and closing of hand WFL. Right Lower Extremity: Hip flexion WFL. Hip abduction WFL. Knee flexion WFL. Ankle dorsiflexion WFL. Ankle plantarflexion WFL. Left Lower Extremity: Hip flexion WFL. Hip abduction WFL. Knee flexion WFL. Ankle dorsiflexion WFL. Ankle plantarflexion WFL. Strength: Right Upper Extremity: Shoulder flexors 5/5. Shoulder abductors 5/5. Elbow flexors 5/5. Elbow extensors 5/5. Finance Professional strong. Left Upper Extremity: Shoulder flexors 5/5. Shoulder abductors 5/5. Elbow flexors 5/5. Elbow extensors 5/5. Finance Professional strong. Right Lower Extremity: Hip flexors 4/5. Hip abductors 4/5. Knee flexors 5/5. Knee extensors 5/5. Ankle dorsiflexors 5/5. Ankle plantarflexors 5/5. Left Lower Extremity:Hip flexors 4-/5. Hip abductors 4/5. Knee flexors 5/5. Knee extensors 4-/5. Ankle dorsiflexors 5/5. Ankle plantarflexors 5/5. Sensation: Intact as to pain and pressure on bilateral lower extremities. Bed Mobility/Transfers: Rolling independent Supine to sit independent Sit to supine independent Sit to stand independent Stand to sit independent Bed to chair independent Chair to bed independent Gait: Level surface ambulation of up to 300 feet without an assistive device requiring only supervision assist. Gait pattern unremarkable. Balance: Static Sitting: Normal Dynamic Sitting: Normal Static Standing: Normal Dynamic Standing: Good Special Tests: Mobility Limitations Standardized Measure [facility] AM-PAC 6 clicks Basic Mobility Inpatient Short Form: Raw Score: 24 CMS Score: 0% deficit 4-stage Balance test: Maintained all three balance positions for 10 seconds without any difficulty. However, she indicated that she has had issue with standing with one leg even before hospital admission. Informed Consent/Education: Patient instructed in purpose of PT consult. Assessment: Strength symmetric in bilateral upper extremities. Minimal weakness in the left hip is due to a 20-year-old hip prosthesis that patient has had. Ananya demonstrates no functional mobility deficits at this time and does not require skilled therapy services. She was instructed on safe strategies for putting on socks and shoes without bending at the hips with her post-surgical precautions (eye surgery). Concern about performing house chores brought up with health care legal assistant Sarah. Patient is assessed as a 04048 low complexity based on the following: History: 79-year-old female with impairment level findings, functional limitations, and past medical history as indicated above Examination: Demonstrable impairment in strength, balance, and mobility level with underlying impairments and functional limitations as documented above Presentation:Evolving Decision Makin low complexity Goals: N/A. PT evaluation only. No skilled services needed at this time. Plan of Care/Treatment Plan: N/A. PT evaluation only. No skilled services needed at this time. DISCHARGE RECOMMENDATIONS: Home when medically cleared by hospitalist. No equipment needs at this time. TREATMENT CODE/TIME: 98733 x 28 minutes beginning at 13:47 PM. Thank you for the opportunity to participate in the care of this patient. Corrine Tay PT, DPT, CLT [facility] [place], [place]
--- NOTE | 2020-06-19 15:29 | SPP_ITS ---
Date of service: 06/19/20 Time of Service: 15:29 Objective/Assessment/Plan Assessment Date: 06/19/20 Referring Doctor: Tani Martino MD DIRECTOR OF ENROLLMENT Orders: bedside swallow, TIA with garbled speech Precautions: Fall, standard, Full DIRECTOR OF ENROLLMENT Non-Treatment Note PATIENT PROFILE/ADMITTING DIAGNOSIS: Pt is a 79 year old female who had a (R) eye cataract surgical procedure on 06/18/20. She was brought to the ED for a suspected TIA due to garbled speech and lack of motor control at the time and admitted to Med Surg. Past Medical History: Medical History (Updated 06/19/20 @ 06:58 by Tani Robledo) Alopecia Arthritis Congenital ectodermal dysplasia Constipation Contact dermatitis Cystitis Deviated nasal septum Diabetes 2006 Diabetic peripheral neuropathy Dry eye syndrome pt sb Esophagitis Herpes zoster Hyperlipidemia Hypertension Hyponatremia Microalbuminuric diabetic nephropathy Neck stiffness Osteopenia Venous insufficiency Surgical History Total replacement of hip (~2000) Subjective DIRECTOR OF ENROLLMENT received consult, chart reviewed. Patient currently tolerating level 7 regular solids/0 thin liquids without issue at this time per review with RN. Patient received upright in chair, 90-100% speech intelligibility, able to express wants/needs clearly. Agreeable to DIRECTOR OF ENROLLMENT screening upon entering room, and to take part in [facility] Swallow Protocol. Objective: Oral Mechanism Exam/CNE: [facility] Swallow Protocol: Pass Assessment: Patient does not demonstrate overt s/s dysphagia per standardized screening, is able to demonstrate wants/needs clearly with verbal expression and demonstrates comprehension of verbal language, able to ask questions appropriately. Plan: No further DIRECTOR OF ENROLLMENT services warranted at this time. Please re-consult [facility]. Arti Ling MA [facility]-DIRECTOR OF ENROLLMENT Speech Language Pathologist [email or web address]
[2020-06-19 15:49] VITALS: BP 152/77; PULSE 68; RESP 17; TEMP 36.4; O2SAT 98
--- NOTE | 2020-06-19 16:26 | W.NEUROCONSU ---
Date of service: 06/19/20 Time of Service: 16:26 Assessment and Plan Assessment and plan (1) TIA (transient ischemic attack): Status: Acute (2) Type 2 diabetes mellitus: Status: Chronic Qualifiers: Diabetes mellitus complication detail: with polyneuropathy Diabetes mellitus complication status: with neurologic complications Diabetes mellitus longterm insulin use: with predatory animal exterminator use Qualified Code(s): E11.42 - Type 2 diabetes mellitus with diabetic polyneuropathy; Z79.4 - halfway (current) use of insulin (3) Hypertension: Status: Chronic Qualifiers: Hypertension type: essential hypertension Qualified Code(s): I10 - Essential (primary) hypertension (4) Hyperlipidemia: Status: None Assessment and plan: Ms. Pitts is a 79 year-old, right-handed woman was admitted with TIA manifested by transient expressive aphasia. She may have also had a TIA ~2months ago when she had transient right neil-numbness. Work-up thus far unrevealing to etiology, either small vessel disease vs cardiac embolus. I recommend extended 30-day cardiac monitoring as further work-up. She should continue aspirin 81mg daily along with a statin for secondary stroke prevention. She should follow-up in neurology clinic in 4-6 weeks. Thank you for this consultation. History of Present Illness History of Present Illness Chief Complaint: transient speech changes Narrative: Handedness: right. HPI: Ms. Pitts is a 79 year-old woman with hypertension, hyperlipidemia, and diabetes. She was admitted yesterday after she had a ~10min episode of altered speech while talking on the telephone. She describes inability to get her words out with retained ability to understand the other person on the phone. She has no associated numbness or weakness. She had a mild headache while in the ER. 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 About 2 months ago, she had 3 ocular migraines in one week (visual symptoms x ~20min) after not having any in 5+ years. Also, one of the episodes was associated with numbness of the right face, arm, and leg lasting the same duration. Of further interest, she underwent R cataract lens extraction on 06/17/20, the day prior to her symptoms. In the ER she had a BP 192/70. EKG was unremarkable. She was started on ASA 325mg daily and admitted for the work-up as below. Work-up: -CTH: no acute findings. I reviewed these images personally and this is my personal interpretation. -MRI Brain/MRA head: no acute findings. Mild-moderate chronic small vessel disease changes. Normal hoopa of robbins. I reviewed these images personally and this is my personal interpretation. -CUS: no significant stenosis. Noted thyroid nodule of which a biopsy is recommended. -TTE: Limited study. EF 60%. No wall motion abnormalities. LA normal. Bubble not done. -Tele: unremarkable. -LDL 126 -A1c 7.0 Consults Requesting physician: Corazon Isaac Review of Systems All systems reviewed & are unremarkable except as noted in HPI and below PFSH Medical History Alopecia Arthritis Congenital ectodermal dysplasia Constipation Contact dermatitis Cystitis Deviated nasal septum Diabetes 2006 Diabetic peripheral neuropathy Dry eye syndrome pt sb Esophagitis Herpes zoster Hyperlipidemia Hypertension Hyponatremia Microalbuminuric diabetic nephropathy Neck stiffness Osteopenia Venous insufficiency Surgical History Total replacement of hip (~2000) Social History Smoking/Tobacco Use Status: Never Smoking risk assessment performed?: Yes Alcohol Intake: never Drug use: Never Substance use type: does not use Current gender identity: female Do you feel safe at home: Yes Do you feel safe in your relationship?: Yes Visit Medication and Allergies Active Medications Generic Name Dose Route Start Last Admin Trade Name Freq PRN Reason Stop Dose Admin Acetaminophen 650 mg 06/18/20 18:19 Acetaminophen 325 Mg Tab PO Q4H PRN PRN Al Hydrox/Mg Hydrox/Simethicone 30 ml 06/18/20 18:19 Mylanta Suspension 30 Ml Cup PO Q2H PRN PRN Atorvastatin Calcium 40 mg 06/19/20 20:00 Atorvastatin 40 Mg Tab PO QPM CRIS Dextrose 0 gm 06/18/20 18:24 Glucose 40% Oral Solution 15 Gm/37.5 Gm Tube PO DIRECTED PRN Dextrose/Water 0 gm 06/18/20 18:24 Dextrose 50%-Water 25 Gm/50 Ml Syr IVP DIRECTED PRN Dimethicone/Zinc Oxide 0 gm 06/18/20 18:19 Zuleyma Protect Cream 142 Gm Tube TP PRN PRN Docusate Sodium 100 mg 06/18/20 18:19 06/18/20 23:11 Docusate Sodium 100 Mg Cap PO 100 mg TID PRN PRN Administration Sodium Chloride 500 mls @ 0 mls/hr 06/18/20 18:10 Saline 500ml Bag IV PRN PRN As Directed IV Miscellaneous Supplies 1 each 06/18/20 18:15 Iv Access IV DIRECTED [facility] Insulin Aspart 0 units 06/18/20 22:00 06/19/20 12:35 Insulin Aspart 300 Units/3 Ml Pen SC 4 unit AC & HS CRIS Administration Protocol Lisinopril 10 mg 06/18/20 20:00 06/19/20 07:52 Lisinopril 10 Mg Tab PO 10 mg BID CRIS Administration Magnesium Hydroxide 30 ml 06/18/20 18:19 Milk Of Magnesia 30 Ml Cup PO DAILY PRN PRN Pt's Own Post-Op 0 each 06/19/20 10:00 06/19/20 10:58 Cataract Eye Drops OP 1 each Q12H CRIS Administration Polyethylene Glycol 17 gm 06/18/20 18:19 Polyethylene Glycol 3350 17 Gm Packet PO DAILY PRN PRN Constipation Sodium Chloride 0 ml 06/18/20 18:10 06/19/20 09:59 Normal Saline Flush 10 Ml Syr IVP 10 ml PRN PRN Administration Allergies Penicillins Allergy (Severe, Unverified 06/18/20 15:03) Other (See Comment) saxagliptin HCl [From Onglyza] Allergy (Severe, Unverified 06/18/20 15:03) Other (See Comment) prednisone Adverse Reaction (Unverified 06/18/20 15:03) Unknown Exam Narrative Exam Narrative: Physical Exam: Gen: Patient of apparent stated age, NAD Head and face: no facial or cranial abnormalities Neck: Supple, no meningismus, no occipital tenderness CV: + S1, S2, RRR, no murmur Resp: CTA B/L Abd: soft, nontender, nondistended Ext: No edema. No clubbing or cyanosis. No bony deformity. Neuro Exam: Language: fluency, naming, repetition, and comprehension intact; Mental Status: AAOx3, current events intact, fund of knowledge intact; Speech: no dysarthria Cranial nerves: Funduscopy: not performed CN II: visual zuniga intact CN III, IV, : extraocular movements intact, no nystagmus, pupils symmetric and reactive to light CN V: face sensation intact to LT and PP CN VII: no facial asymmetry noted CN VIII: hearing intact bilaterally CN IX, X: palate rises symmetrically CN XI: trapezius/SCM 5/5 bilaterally CN XII: protrudes tongue symmetrically Sensory: intact to LT, PP, vibration, and joint position in all extremities Motor: bulk and tone intact. Fine motor movements intact bilaterally. No pronator drift. Strength 5/5 throughout including the deltoids, biceps, triceps, wrist extensors, hip flexors, knee flexors, knee extensors, ankle flexors, and ankle extensors. Reflexes: hyporeflexic throughout; toes down going bilaterally; Coordination: FTN and HTS intact bilaterally Gait: not done Results Last Vital Signs Temp 36.4 C L 06/19/20 15:49 Pulse 68 06/19/20 15:49 Resp 17 06/19/20 15:49 BP 152/77 H 06/19/20 15:49 Pulse Ox 98 06/19/20 15:49 Labs Result diagrams: 06/19/20 06:40 06/19/20 06:50 Labs: Laboratory Results - last 24 hr 06/18/20 06/18/20 06/18/20 15:33 17:35 18:22 WBC RBC Hgb Hct MCV MCH MCHC RDW Plt Count MPV Immature Gran % Neutrophils % Lymphocytes % Monocytes % Eosinophils % Basophils % Nucleated RBC % Absolute Neutrophils Absolute Lymphocytes Absolute Monocytes Absolute Eosinophils Absolute Basophils Sodium Potassium Chloride Carbon Dioxide Anion Gap BUN Creatinine Estimated GFR/1.73 m2 Glucose Hemoglobin A1c Calcium Total Bilirubin AST ALT Alkaline Phosphatase Total Protein Albumin Triglycerides Total Cholesterol LDL Cholesterol, Calc HDL Cholesterol TSH 1.22 Cancelled Urine Color Yellow Urine Clarity Clear Urine pH 6.5 Ur Specific [place] 1.020 Urine Protein Negative Urine Ketones 15 H Urine Blood Negative Urine Nitrite Negative Urine Bilirubin Negative Urine Urobilinogen 0.2 Ur Leukocyte Esterase Negative Urine Glucose Negative 06/19/20 06/19/20 06/19/20 06:40 06:50 06:50 WBC 6.78 RBC 4.59 Hgb 13.4 Hct 39.7 MCV 86.5 MCH 29.2 MCHC 33.8 RDW 11.9 Plt Count 222 MPV 10.7 Immature Gran % 0.1 Neutrophils % 45.1 Lymphocytes % 40.1 Monocytes % 11.2 Eosinophils % 2.9 Basophils % 0.6 Nucleated RBC % 0 Absolute Neutrophils 3.05 Absolute Lymphocytes 2.72 Absolute Monocytes 0.76 Absolute Eosinophils 0.20 Absolute Basophils 0.04 Sodium 136 Potassium 4.0 Chloride 99 Carbon Dioxide 24.6 Anion Gap 12.4 H BUN 11 Creatinine 0.7 Estimated GFR/1.73 m2 >= 60.00 Glucose 154 H Hemoglobin A1c Calcium 8.9 Total Bilirubin 0.5 AST 14 L ALT 21 Alkaline Phosphatase 70 Total Protein 7.2 Albumin 3.8 Triglycerides 125 Total Cholesterol 212 H LDL Cholesterol, Calc 126 H HDL Cholesterol 61 TSH Urine Color Urine Clarity Urine pH Ur Specific [place] Urine Protein Urine Ketones Urine Blood Urine Nitrite Urine Bilirubin Urine Urobilinogen Ur Leukocyte Esterase Urine Glucose 06/19/20 06:50 WBC RBC Hgb Hct MCV MCH MCHC RDW Plt Count MPV Immature Gran % Neutrophils % Lymphocytes % Monocytes % Eosinophils % Basophils % Nucleated RBC % Absolute Neutrophils Absolute Lymphocytes Absolute Monocytes Absolute Eosinophils Absolute Basophils Sodium Potassium Chloride Carbon Dioxide Anion Gap BUN Creatinine Estimated GFR/1.73 m2 Glucose Hemoglobin A1c 7.0 H Calcium Total Bilirubin AST ALT Alkaline Phosphatase Total Protein Albumin Triglycerides Total Cholesterol LDL Cholesterol, Calc HDL Cholesterol TSH Urine Color Urine Clarity Urine pH Ur Specific [place] Urine Protein Urine Ketones Urine Blood Urine Nitrite Urine Bilirubin Urine Urobilinogen Ur Leukocyte Esterase Urine Glucose
[2020-06-20 01:52] LABS: COVID-19 RT-PCR UVMMC Result Negative (Negative)
--- NOTE | 2020-06-20 07:37 | OTDS_ITS ---
Date of service: 06/20/20 Time of Service: 07:37 Occupational Therapy Notes Occupational Therapy Inpatient Discharge Summary Date: 06/20/20 Dates of Service: 06/19/20 Referring Doctor:Tani Martino MD OT Orders: Non-Urgent Precautions: Fall, standard, Full PATIENT PROFILE/ADMITTING DIAGNOSIS: Pt is a 79 year old female who had a (R) eye cataract surgical procedure on 06/18/20. She was brought to the ED for a suspected TIA due to garbled speech and lack of motor control at the time and admitted to Med Surg. Past Medical History: Medical History (Updated 06/19/20 @ 06:58 by Tani Robledo) Alopecia Arthritis Congenital ectodermal dysplasia Constipation Contact dermatitis Cystitis Deviated nasal septum Diabetes 2006 Diabetic peripheral neuropathy Dry eye syndrome pt sb Esophagitis Herpes zoster Hyperlipidemia Hypertension Hyponatremia Microalbuminuric diabetic nephropathy Neck stiffness Osteopenia Venous insufficiency Surgical History Total replacement of hip (~2000) Social History/Home Situation: Pt states that she lives in an apartment with 6 stairs to enter. She notes that she lives alone and was (I) at her baseline level of function. She has a license but does not drive as she doesn't have a car. She states that she gets a ride with friends and notes that this works well for her. She states that she has a tub shower and a shower seat. She does not have grab bars. She was (I) with cooking, cleaning, laundry at baseline level of function. Equipment owned/DME: shower bench SUBJECTIVE: NT OBJECTIVE: ROM: RUE AROM WFL per assessment L UE AROM WFL per assessment STRENGTH: RUE 4-/5 throughout globally LUE 4/5 throughout globally FUNCTIONAL MOBILITY/ADLS: BATHING Pt denies although has AROM WNL for appropriate technique of ADL performance DRESSING sitting in bed OT educated and trained pt in adaptive equipment including sock aide, dressing stick, shoe horn, and inorganic chemistry professor. Pt is limited due to her eye surgery and will need adpative equipment for safety and performance of increased functional (I) throughout her ADL/IADL routines. EATING sitting in chair pt was (I) with eating with ideal technique for food to mouth translation and cutting of food. BALANCE: Static sitting Normal Dynamic Sitting Normal ASSESSMENT: Pt was seen for OT consult only and pt was transitioned home post evaluation. GOALS- Unable to assess as pt was seen for OT consult only. 1. Grooming Standing at sink (I) brushing teeth and hair 2. Dressing sitting in chair (I) UE/LE 3. Bathing standing at sink (I) UE and seated (I) LE 4. Toileting on toilet (I) PLAN OF CARE/TREATMENT PLAN: OT consult only. DISCHARGE RECOMMENDATIONS OT feels that pt would benefit from HH OT services at this time. She states that she is feeling better and is limited due to her vision. HH assessment would be for safety of ADLs in the home setting and further needs for adaptive equipment. Pt is limited based on her surgical procedure to her eye and will require (A) in her home due to her restrictions at this time. TREATMENT TIME/MINUTES/CODES N/A Tayler Hidalgo OTR/L [facility]
== END 2020-06-19 17:35 | disposition home or self-care (01) ==
LOC: ER 18:30 → MS 18:51
PROVIDERS: Nurse Practitioner Acute Care; Admitting Provider Family Medicine; Emergency Provider Physician Assistant; PCP Family Medicine; Visit Provider Family Medicine
DX: G45.9 Transient cerebral ischemic attack, unspecified (principal); I10 Essential (primary) hypertension; E11.42 Type 2 diabetes mellitus with diabetic polyneuropathy; E11.29 Type 2 diabetes mellitus with other diabetic kidney complication; M19.90 Unspecified osteoarthritis, unspecified site; K59.00 Constipation, unspecified; E78.5 Hyperlipidemia, unspecified; I87.8 Other specified disorders of veins; Z79.4 Long term (current) use of insulin
CPT/HCPCS: 36415; 36416; 70544; 80053; 80061; 82962; 93005; 93246; 96361; 96365; 96366; 97161; 97165; 97535; 99215; 99217; 99220; 99223; 99285; U0003; U0005; 70450; 70551; 71046; 81003; 83036; 83735; 84443; 84484; 85025; 93010; 93306; 93880; G0378

== ENCOUNTER → 2020-06-19 09:01 | Outpatient (BNVA) | payer MEDICARE, MEDICAID, SELFPAY | PROVIDERS: PCP Family Medicine; Referring Provider Family Medicine; Visit Provider Psychiatry & Neurology Neurology | DX: R69 Illness, unspecified (principal) ==

== ENCOUNTER 2020-08-15 00:53 | Outpatient (CLI) | payer MEDICARE, MEDICAID, SELFPAY ==
--- NOTE | 2020-08-15 | DI.US_ITS ---
EXAM: US NEEDLE LOCAL OTHER WO RAD CLINICAL HISTORY: THYROID NODULE, E04.1, ULTRASOUND GUIDED FNA. COMPARISON: US US ECHOCARDIOGRAM from 06/19/2020 US US CAROTID from 06/19/2020 US US ECHOCARDIOGRAM from 06/19/2020 Procedure: Procedure was performed by Dr. Luong. Please see procedure note for details. FINDINGS: A right thyroid nodule with suspicious features is again demonstrated. DATA REPOSITORY:
--- NOTE | 2020-08-15 07:45 | PAPNONF_PTH ---
PATIENT: Ananya Pitts LOC: [facility] U#:[id number] AGE/SX: 79/F ROOM: RE08/15/[address]: Siva Luong MD : 1940 BED: DIS: 08/15/2020 SPEC #: [id number] RECD: 08/15/20 12:48 STATUS: GINNYJaymie REAnna #: [id number] COLIN: 08/15/20 07:[address]: Siva Luong DEPT: [facility] Cytology RECD BY: Bouchra Parham ENTERED: 08/15/20 12:49 SP TYPE: JADE MOSQUERA DR: Los Lozano Tissues: 1 - BODY FLUID CYTO-FINE NEEDLE ASPIRATE-[facility] Procedures: BODY FLUID CYTO-FINE NEEDLE ASPIRATE-[facility] Comments: [id number]
== END 2020-08-15 01:13 ==
PROVIDERS: PCP Family Medicine; Visit Provider Otolaryngology
DX: E04.1 Nontoxic single thyroid nodule (principal)
CPT/HCPCS: 10005; 76942; 88104

== ENCOUNTER 2020-09-23 06:38 | Day surgery (SDC) | payer MEDICARE, MEDICAID, SELFPAY ==
--- NOTE | 2020-09-23 06:17 | W.ANESPRE ---
General Info Date of Service Date Performed: 09/23/20 Height: 5 ft 6 in Weight: 70.5 kg Body Mass Index (BMI): 25.0 Surgical Procedure: Operation Date: 09/23/20 08:40 Proposed Procedures Side Surgeon p Cataract Extraction with IOL Implant Left Ed Ham MD Meds Allergies and Home Medications Allergies Allergy/AdvReac Type Severity Reaction Status Date / Time Penicillins Allergy Severe Other (See Unverified 09/23/20 07:19 Comment) saxagliptin HCl Allergy Severe Other (See Unverified 09/23/20 07:19 [From Onglyza] Comment) prednisone AdvReac Unknown Unverified 09/23/20 07:19 Home Medication Medication Instructions Recorded Essiac Tea 125 mg PO DAILY 12/28/13 ascorbic acid (vitamin C) [Vitamin 500 mg PO DAILY 12/28/13 C] cholecalciferol (vitamin D3) 5,000 unit PO DAILY 12/28/13 chromium amino acid chelate 200 mcg PO DAILY 12/28/13 garlic 1 ea PO DAILY 12/28/13 lisinopril 40 mg PO DAILY tab-cap 12/28/13 metformin 1,000 mg PO BID tab-cap 12/28/13 omega-3 fatty acids-fish oil 1 ea PO DAILY 12/28/13 vitamin B complex 1 ea PO DAILY 12/28/13 vitamin E 400 unit PO DAILY 12/28/13 alpha lipoic acid 200 mg PO DAILY 01/17/16 Lantus Solostar U-100 Insulin 10 unit SUBCUT HS 06/13/20 cranberry extract 500 mg PO DAILY 06/13/20 magnesium 125 mg PO DAILY 06/13/20 taurine 1,600 mg PO DAILY 06/13/20 aspirin 81 mg PO DAILY #30 tab 06/19/20 atorvastatin [Lipitor] 40 mg PO QPM #30 tab 06/19/20 amlodipine 2.5 mg PO HS 09/18/20 PFS Active Problems Active Problems: Problem Status Onset Code Posterior subcapsular age-related cataract of left eye H25.042 Nuclear sclerotic cataract of left eye H25.12 Thyroid nodule greater than or equal to 1.5 cm in diameter incidentally noted on imaging study E04.1 Thyroid nodule E04.1 Hypertension Type 2 diabetes mellitus E11.9 TIA (transient ischemic attack) G45.9 Posterior subcapsular age-related cataract, right eye H25.041 Nuclear sclerotic cataract of right eye H25.11 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 Medical History Medical History Alopecia Arthritis Congenital ectodermal dysplasia Constipation Contact dermatitis Cystitis Deviated nasal septum Diabetes 2006 Diabetic peripheral neuropathy Dry eye syndrome pt sb Esophagitis Herpes zoster Hyperlipidemia Hypertension Hyponatremia Microalbuminuric diabetic nephropathy Neck stiffness Osteopenia Venous insufficiency Surgical History Surgical History (Updated 09/23/20 @ 07:19 by Sharmila Servin) Hx of cataract surgery Total replacement of hip (~2000) Tobacco Smoking/Tobacco Use Status: Never Alcohol Alcohol Intake: never Substance Use Substance use: Never Substance use type: does not use Vital Signs and Lab Results Vital Signs Most Recent Vital Signs in EMR: Temp Pulse Resp BP Pulse Ox 36.2 C L 73 16 151/77 H 99 09/23/20 07:28 09/23/20 07:28 09/23/20 07:28 09/23/20 07:28 09/23/20 07:28 Lab Results Blood Type / Crossmatch: No Data to Display Complete Blood Count: No Data to Display Complete Metabolic Panel: No Data to Display Liver Function Panel: No Data to Display Coagulation Panel: No Data to Display Cardiac Panel: No Data to Display Arterial Blood Gas: No Data to Display Venous Blood Gas: No Data to Display Pancreas Panel: No Data to Display Thyroid Panel: No Data to Display Infectious Disease: No Data to Display Blood Cultures: No Data to Display Toxicology Panel: No Data to Display Imaging and Studies Imaging and Studies EKG Summary: 06/2020: sinus rhythm. Carotid Artery Summary:: 06/2020: 1. No evidence for hemodynamically significant carotid stenosis. 2. Unexpected finding of 3.7 centimeter TR 5 nodule. Biopsy is recommended. Anesthesia Assessment and Plan Anesthesia History Personal History: No History of Anesthesia Complications Family History: No Family History of Anesthesia Complications Exercise Tolerance Exercise Tolerance: Metabolic Equivalents>4 Cardiac & Pulmonary Exam Cardiac Exam: Normal S1/S2 Heart Sounds Pulmonary Exam: Clear Bilateral Breath Sounds Airway Exam Known Difficult Airway: No Mallampati Class: 3 Mouth Opening: Narrow (< 3cm) Thyromental Distance: Greater than 3 cm Neck Range of Motion: Limited ROM Neck Circumference: Normal Teeth Condition: Normal Dentition and Removable Dentures/Plates Lower ASA Classification ASA Score: ASA 2 Emergency Case?: No NPO Status NPO Status: NPO Clears >2 hours, Solids >8 hours Anesthesia Plan Resuscitation Status: Full Code Anesthesia Technique: MAC Anesthesia Airway Planned: Natural Airway Monitors Used: Standard Monitors Preoperative Comments:: no MKO previously.
[2020-09-23] MEDS: Tropicam./Phenyleph. (1/2.5%) 5 ML BTL OP ×3 (07:22→07:36)
[2020-09-23 07:28] VITALS: BP 151/77; PULSE 73; RESP 16; TEMP 36.2; O2SAT 99
[2020-09-23 07:32] VITALS: BMI 25.0
[2020-09-23] MEDS: Tetracaine 0.5% 4 ML BTL OP (08:33)
[2020-09-23] MEDS: Povidone-Iodine Ophth 30 ML BTL (08:39)
[2020-09-23] MEDS: Lidocaine 2% Jelly 6 ML SYR (08:39)
[2020-09-23] MEDS: Lidocaine 1% Pres-Free 5 ML VIAL (08:40)
[2020-09-23] MEDS: Duovisc Viscoelastic System EACH 1 EACH (08:41)
[2020-09-23] MEDS: Balanced Salt Soln.-PLUS 500 ML BAG (08:41)
--- NOTE | 2020-09-23 08:49 | PDOC.DSDIS_ITS ---
Discharge Plan Disposition Patient Disposition: HOME Condition: Good Discharge Details Attending Provider: Ed Ham Primary Care Provider: Los Lozano [place] Meds and New Rx's Prescriptions: No Action metformin 500 MG tablet 1,000 mg PO BID RF: 0 lisinopril 20 MG tablet 40 mg PO DAILY RF: 0 ascorbic acid (vitamin C) [Vitamin C] 500 MG capsule, extended release 500 mg PO DAILY RF: 0 vitamin B complex 1 EACH tablet 1 ea PO DAILY RF: 0 vitamin E 400 UNIT capsule 400 unit PO DAILY RF: 0 garlic 1 EACH tablet 1 ea PO DAILY RF: 0 omega-3 fatty acids-fish oil 1 EACH capsule 1 ea PO DAILY RF: 0 cholecalciferol (vitamin D3) 2,000 UNIT tablet 5,000 unit PO DAILY RF: 0 chromium amino acid chelate 400 MCG tablet 200 mcg PO DAILY RF: 0 essiac tea capsule 125 mg PO DAILY RF: 0 alpha lipoic acid 200 MG tablet 200 mg PO DAILY RF: 0 magnesium 100 mg Tablet 125 mg PO DAILY RF: 0 cranberry extract 500 mg Capsule 500 mg PO DAILY RF: 0 Lantus Solostar U-100 Insulin 100 unit/mL (3 mL) insulin pen 10 unit SUBCUT HS RF: 0 taurine 1,000 mg Capsule 1,600 mg PO DAILY RF: 0 atorvastatin [Lipitor] 40 mg Tablet 40 mg PO QPM Qty: 30 RF: 0 aspirin 81 mg tablet,delayed release (DR/EC) 81 mg PO DAILY Qty: 30 RF: 0 amlodipine 2.5 mg tablet 2.5 mg PO DAILY RF: 0 Discharge Instructions Stand Alone Forms: Post-op Block Cataract, Post-op Topical Cataract, Jelly Verduzcoey (DSU) Discharge Orders Discharge Orders: Discharge Order (Routine); Ordered 09/23/20 Ordered By: Ed Ham DS: Diagnosis Discharge Diagnosis (1) Nuclear sclerotic cataract of left eye: Status: Resolved (2) Posterior subcapsular age-related cataract of left eye: Status: Resolved
--- NOTE | 2020-09-23 08:49 | W.ANESPOSTOP ---
Postoperative Evaluation Date, Time and Location Date Performed: 09/23/20 Time Performed: 08:49 Patient Location: Day Surgery Unit Vital Signs Most Recent Imported Vital Signs: Most Recent Vital Signs Temp Pulse Resp BP Pulse Ox 36.2 C L 73 16 151/77 H 99 09/23/20 07:28 09/23/20 07:28 09/23/20 07:28 09/23/20 07:28 09/23/20 07:28 Most Recent Manually Entered Vital Signs: Adult Blood Pressure: 147/79 Heart Rate: 79 Respirations: 18 Oxygen Saturation (%): 98 Temperature (C): 36.4 C Pain Score (0-10 Scale): 0 Pain Score Most Recent Pain Score: Most Recent Pain Score Pain Level 0 09/23/20 07:28 Assessment Mental Status: Awake (Alert & Oriented to Patient Baseline) Airway and Respiratory Function: Patent airway with normal (patient baseline) respiratory exam Cardiovascular Function: Hemodynamically Stable Hydration Status: Adequately Hydrated Nausea & Vomiting: No Nausea or Vomiting Pain: Pt. Denies Any Pain Peripheral Nerve Block: Patient did not receive a nerve block
[2020-09-23 08:50] VITALS: TEMPC 36.4
--- NOTE | 2020-09-23 08:51 | W.PM.OP ---
Date of service: 09/23/20 Time of Service: 08:51 Operative Note Operative Note DATE OF PROCEDURE: 09/23/20 PRE-OP DIAGNOSIS: Nuclear/posterior subcapsular cataract, left eye POST-OP DIAGNOSIS: same PROCEDURE: Cataract extraction using phacoemulsification with intraocular lens implant, left eye SURGEON: Ed Ham ANESTHESIA TYPE: Local By Surgeon and MAC Refer to Anesthesia Record PATHOLOGY: none sent COMPLICATIONS: None Patient was transported to: same day Patient's condition: stable Implants: [employer] / [employer] Tecnis [id number] Indications: Progressive decreased vision due to cataract, left eye Procedure Description: CATARACT SURGERY OPERATIVE REPORT PREOPERATIVE DIAGNOSIS: Nuclear/posterior subcapsular cataract, left eye POSTOPERATIVE DIAGNOSIS: Same OPERATION: Cataract extraction using phacoemulsification with posterior chamber intraocular lens implant, left eye. IOL: IOL Electron Beam Operator/Model: [employer] / BORIS Tecnis [id number] IOL Power: + 12.0 diopters IOL Serial Number: [id number] Optic Diameter: 6.0mm Haptic/Overall Diameter: 13.0mm PHACO INFO: Fernando Tapas [employer] Vision System with OZil and Active Fluidics Cumulative Dispersed Energy (CDE): 9.33 seconds SURGEON: Ed Ham MD, KAILASH ANESTHESIA: Monitored Anesthesia Care (MAC), with local sub-tenon's anesthetic infiltration COMPLICATIONS: None SPECIMENS: None INDICATIONS FOR PROCEDURE: The patient is a 79-year-old lady with history of diminished visual acuity in both eyes secondary to the development of bilateral nuclear and posterior subcapsular cataract. She has a history of high myopia. She desires to remain mildly to moderately myopic postoperatively. Postop refractive target is -2.25 diopters. She has already undergone cataract surgery in the right eye and now presents for surgery in the left. PROCEDURE: The correct surgical eye was identified and marked as the left eye and the pupil was dilated in the preoperative area using mydriatics and cycloplegics. The dilated pupil size was 7.0 mm. She elected to proceed without oral sedation. The patient was brought to the operating room where cardiopulmonary monitoring was instituted and surgical time-out was performed, confirming the correct operative eye and IOL power. Topical anesthesia was administered and ophthalmic povidone-iodine 5% was instilled into the conjunctival fornices. Lidocaine gel was applied to the cornea and the shailesh-ocular area was prepped with Betadine 10% solution and draped in the usual sterile fashion for intraocular surgery, including an aperture drape. A Tegaderm transparent film dressing was cut in half and used to cover the lashes and lid margins. Care was taken to sequester the lashes and lid margins under the Tegaderm dressing. A lid speculum was placed between the lids of the operative eye and the Rhea-Joanne operating microscope was maneuvered into position. Gisela scissors were then used to make a conjunctival buttonhole approximately 6mm posterior to the limbus in the inferonasal quadrant. Blunt dissection was carried out to expose bare sclera, and a blunt-tipped sub-tenon?s anesthesia cannula was introduced and passed posteriorly along the globe where non-preserved plain lidocaine was injected into posterior sub-Tenon?s space. A sideport knife was used to make a paracentesis port superior/superiortemporally. Intraocular phenylephrine/lidocaine was injected into the anterior chamber. The anterior chamber was then filled with viscoelastic. A 2.4mm keratome knife was used to create a half-thickness groove at the limbus and then to construct a three-plane near-clear corneal tunnel extending 2.0mm into clear cornea in the temporal position. . A flap was raised on the anterior capsule and capsulorhexis forceps were used to complete a continuous curvilinear capsulorhexis of 5.0 mm. Balanced salt solution was then used to perform cortical cleaving hydrodissection and nuclear hydrodelineation until the lens could be freely rotated within the capsular bag. The lens nucleus was then disassembled and removed within the capsular bag and iris plane using phacoemulsification. Residual cortical material was removed using the 45-degree angled silicone I/A tip with 0.3mm port. The posterior capsule was carefully polished to remove as much residual lens epithelial cells as safely possible. The capsular bag was then inflated and the anterior chamber deepened with viscoelastic. The lens implant described above was inserted into the capsular bag using the BORIS Ewiiaapaayp Injector. A Kuglen hook was used to dial the IOL into position. Residual viscoelastic was then removed first from posterior to the IOL, then from the anterior chamber using the I/A handpiece. The lens implant was noted to center nicely within the capsular bag. The incisions were stromally hydrated, and the anterior chamber was reformed using BSS. Then 0.5cc of moxifloxacin 1.0mg/ml were injected into the capsular bag and anterior chamber. The incisions were checked with a Weck spear and found to be secure. Several drops of ophthalmic povidone-iodine 5% were then applied to the eye followed by two drops of Imprimis combination prednisolone/moxifloxacin/nepafenac solution. The drapes were removed and a clear plastic protective eye shield was placed over the eye. The patient was then returned to [facility] Day Surgery in stable condition.
[2020-09-23 08:54] VITALS: BP 147/79; PULSE 79; RESP 18; O2SAT 98
[2020-09-23 08:55] VITALS: BP 147/79; PULSE 66; RESP 18; TEMP 36.4; O2SAT 98
== END 2020-09-23 09:15 | disposition home or self-care (01) ==
PROVIDERS: PCP Family Medicine; Visit Provider Ophthalmology
PROC: (CPT 66984; principal; 2020-09-23 08:30)
DX: H25.12 Age-related nuclear cataract, left eye (principal); E11.9 Type 2 diabetes mellitus without complications; I10 Essential (primary) hypertension
CPT/HCPCS: 66984; V2632

== ENCOUNTER 2020-10-24 08:36 | Emergency (ER) | payer MEDICARE, MEDICAID, SELFPAY ==
[2020-10-24 08:43] VITALS: PULSE 84; RESP 16; TEMP 36.1; O2SAT 98
--- NOTE | 2020-10-24 08:53 | ED.GENADUL_ITS ---
Discharge Plan Disposition Patient Disposition: HOME Condition: Good Discharge Details Clinical Impression: Insect bite, Tick bite Primary Care Provider: [facility] ED Provider: Bouchra Muro Home Meds and New Rx's Prescriptions: New doxycycline monohydrate 100 mg capsule 100 mg PO DAILY Qty: 2 RF: 0 Continued metformin 500 MG tablet 1,000 mg PO BID RF: 0 lisinopril 20 MG tablet 40 mg PO DAILY RF: 0 ascorbic acid (vitamin C) [Vitamin C] 500 MG capsule, extended release 500 mg PO DAILY RF: 0 vitamin B complex 1 EACH tablet 1 ea PO DAILY RF: 0 vitamin E 400 UNIT capsule 400 unit PO DAILY RF: 0 garlic 1 EACH tablet 1 ea PO DAILY RF: 0 omega-3 fatty acids-fish oil 1 EACH capsule 1 ea PO DAILY RF: 0 cholecalciferol (vitamin D3) 2,000 UNIT tablet 5,000 unit PO DAILY RF: 0 chromium amino acid chelate 400 MCG tablet 200 mcg PO DAILY RF: 0 essiac tea capsule 125 mg PO DAILY RF: 0 alpha lipoic acid 200 MG tablet 200 mg PO DAILY RF: 0 magnesium 100 mg Tablet 125 mg PO DAILY RF: 0 cranberry extract 500 mg Capsule 500 mg PO DAILY RF: 0 Lantus Solostar U-100 Insulin 100 unit/mL (3 mL) insulin pen 10 unit SUBCUT HS RF: 0 taurine 1,000 mg Capsule 1,600 mg PO DAILY RF: 0 atorvastatin [Lipitor] 40 mg Tablet 40 mg PO QPM Qty: 30 RF: 0 aspirin 81 mg tablet,delayed release (DR/EC) 81 mg PO DAILY Qty: 30 RF: 0 amlodipine 2.5 mg tablet 2.5 mg PO DAILY RF: 0 Discharge Instructions Instructions: Tick Bite (ED) Additional Instructions: I have prescribed a one-time dose of doxycycline for prophylaxis for Lyme disease, if you suspect the tick is been attached for longer than 36 hours , you may take this this dose of doxycycline You may apply hydrocortisone cream and Benadryl topically to the affected area before Should you have difficulty swallowing, shortness of breath, or with any new or worsening complaints, please return to the emergency room for reevaluation You may have a Lyme titer drawn in 2 weeks with your primary care physician Medical Decision Making Patient appears well, aside on her legs for which she presents resembles a staying from an insect, will try Benadryl and hydrocortisone No evidence of anaphylaxis or spreading erythema, no generalized urticaria, no airway issues reported or evaluated on today's exam Recent tick bite as well, did give prophylactic dose of doxycycline, return precautions discussed and patient expressed understanding, will follow up with primary care physician in the outpatient setting return earlier should she have new or worsening complaints Differential Diagnosis Differential Diagnosis: Sting, bite, anaphylaxis, local allergic reaction Medical Records Medical records reviewed: Yes I reviewed the patient's medical records. HPI General Mode of arrival: ambulatory . Date/Time Provider Initiated Documentation: 10/24/20 08:37 . Limitations to Documentation: no limitations . Information obtained by: patient . HPI Narrative: This 79-year-old female with history of TIA, thyroid disease, hypertension, hyperlipidemia presents with report of possible bite to her right posterior thigh. She states this occurred while she was walking. She felt a bite in the itching sensation. She also states she had a tick bite several days ago. She removed the tick and is unsure but thinks that it was not likely attached for longer than 36 hours ago was not engorged. She denies any difficulty swallowing, chest pain, shortness of breath, dizziness. She otherwise feels quite well. She did not take any medications prior to arrival. 7541 Related Data Home Medications Medication Instructions Recorded Confirmed [facility] Tea 125 mg PO DAILY 12/28/13 09/23/20 ascorbic acid (vitamin C) [Vitamin 500 mg PO DAILY 12/28/13 09/23/20 C] cholecalciferol (vitamin D3) 5,000 unit PO DAILY 12/28/13 09/23/20 chromium amino acid chelate 200 mcg PO DAILY 12/28/13 09/23/20 garlic 1 ea PO DAILY 12/28/13 09/18/20 lisinopril 40 mg PO DAILY tab-cap 12/28/13 09/23/20 metformin 1,000 mg PO BID tab-cap 12/28/13 09/23/20 omega-3 fatty acids-fish oil 1 ea PO DAILY 12/28/13 09/23/20 vitamin B complex 1 ea PO DAILY 12/28/13 09/23/20 vitamin E 400 unit PO DAILY 12/28/13 09/23/20 alpha lipoic acid 200 mg PO DAILY 01/17/16 09/23/20 Lantus Solostar U-100 Insulin 10 unit SUBCUT HS 06/13/20 09/23/20 cranberry extract 500 mg PO DAILY 06/13/20 09/23/20 magnesium 125 mg PO DAILY 06/13/20 09/23/20 taurine 1,600 mg PO DAILY 06/13/20 09/23/20 aspirin 81 mg PO DAILY #30 tab 06/19/20 09/23/20 atorvastatin [Lipitor] 40 mg PO QPM #30 tab 06/19/20 09/23/20 amlodipine 2.5 mg PO DAILY 09/18/20 09/23/20 doxycycline monohydrate 100 mg PO DAILY #2 cap 10/24/20 Previous Rx's Medication Instructions Recorded aspirin 81 mg PO DAILY #30 tab 06/19/20 atorvastatin [Lipitor] 40 mg PO QPM #30 tab 06/19/20 doxycycline monohydrate 100 mg PO DAILY #2 cap 10/24/20 Allergies Allergy/AdvReac Type Severity Reaction Status Date / Time Penicillins Allergy Severe Other (See Unverified 09/23/20 07:19 Comment) saxagliptin HCl Allergy Severe Other (See Unverified 09/23/20 07:19 [From Onglyza] Comment) prednisone AdvReac Unknown Unverified 09/23/20 07:19 General Stated Complaint: GenMedical EVA: 4 Review of Systems Narrative: Review of systems obtained x7 aside from where indicated in HPI [facility] Medical History (Updated 10/24/20 @ 09:00 by MAGI Wu) Alopecia Arthritis Congenital ectodermal dysplasia Constipation Contact dermatitis Cystitis Deviated nasal septum Diabetes 2006 Diabetic peripheral neuropathy Dry eye syndrome pt sb Esophagitis Herpes zoster Hyperlipidemia Hypertension Hyponatremia Microalbuminuric diabetic nephropathy Neck stiffness Osteopenia Venous insufficiency Surgical History (Updated 09/23/20 @ 08:50 by Ed Ham MD) Hx of cataract surgery Total replacement of hip (~2000) Social History Smoking/Tobacco Use Status: Never Smoking risk assessment performed?: Yes Alcohol Intake: never Drug use: Never Substance use type: does not use Current gender identity: female Do you feel safe at home: Yes Do you feel safe in your relationship?: Yes Exam Const General: cooperative Orientation: alert and oriented x3 HENMT Other: Uvula midline Chest Chest: normal inspection of the chest Resp Effort & Inspection: normal respiratory effort Cardio Rate: regular rate Skin Other: Approximately a 2 inch area of swelling noted to right posterior mid thigh, nontender, no crepitus, mild pink discoloration, central area resembling a sting site Neuro General: patient alert and patient oriented x3 Course Vital Signs Vital signs: Vital Signs Temperature 36.1 C L 10/24/20 08:43 Pulse 84 10/24/20 08:43 Respiratory Rate 16 10/24/20 08:43 Pulse Oximetry 98 10/24/20 08:43 Temperature 36.1 C L 10/24/20 08:43 Temperature Source Temporal Artery Scan 10/24/20 08:43 Pulse 84 10/24/20 08:43 Respiratory Rate 16 10/24/20 08:43 Blood Pressure Position Sitting 10/24/20 08:43 Pulse Oximetry 98 10/24/20 08:43 Oxygen Delivery Method Room Air 10/24/20 08:43 Oxygen Flow Rate 0 10/24/20 08:43 Pain Level 2 10/24/20 08:43
[2020-10-24 09:13] VITALS: BP 135/67
== END 2020-10-24 09:16 | disposition home or self-care (01) ==
PROVIDERS: Emergency Provider Physician Assistant; PCP Family Medicine
DX: S70.361A Insect bite (nonvenomous), right thigh, initial encounter (principal); W57.XXXA Bitten or stung by nonvenomous insect and other nonvenomous arthropods, initial encounter
CPT/HCPCS: 99283

== ENCOUNTER 2021-02-20 01:54 | Outpatient (CLI) | payer MEDICARE, MEDICAID, SELFPAY ==
--- NOTE | 2021-02-20 | DI.US_ITS ---
Exam(s) US THYROID EXAM: US THYROID CLINICAL HISTORY: THYROID NODULE, E04.1 TECHNIQUE: Ultrasound performed using standard protocol. COMPARISON: US US NEEDLE LOCAL OTHER RAD from 08/15/2020 FINDINGS: Thyroid ultrasound was performed according to the usual protocol. Right thyroid lobe measures 51 x 1 8 x 21 millimeters and left thyroid lobe measures 46 x 12 x 14 millimeters. The isthmus is about 14 millimeters in thickness. Thyroid parenchyma is heterogeneous throughout. There are multiple 2-5 millimeter in diameter intrathyroidal nodules. There is dominant 15 x 13 x 12 millimeter in diameter solid right upper pole thyroid nodule which is mildly hyperechoic and and which is taller than wide. This has smooth margins and does contain some punctate calcifications. This is a TR 5 lesion by the TI-RADS classification, biopsy recommended for size greater than or equal to 1 cm. No other suspicious lesion identified. IMPRESSION: Fine needle aspiration is recommended for 15 millimeter in greatest diameter right upper pole thyroid nodule as described above, this is a TR 5 lesion by the TI-RADS classification.. DATA REPOSITORY:
== END 2021-02-20 02:14 ==
PROVIDERS: PCP Family Medicine; Visit Provider Otolaryngology
DX: E04.2 Nontoxic multinodular goiter (principal); R93.89 Abnormal findings on diagnostic imaging of other specified body structures
CPT/HCPCS: 76536

== ENCOUNTER 2021-03-19 19:10 | Outpatient (REF) | payer MEDICARE, MEDICAID, SELFPAY ==
[2021-03-20 08:45] LABS: Calculated LDL 43 mg/dL (<100); Cholesterol 116 mg/dL (<200); HDL Cholesterol 55 mg/dL (40-60); Triglyceride 94 mg/dL (<150)
== END 2021-03-19 19:11 | disposition home or self-care (01) ==
LOC: NCHCN 19:10
PROVIDERS: PCP Family Medicine; Visit Provider Family Medicine
DX: I67.9 Cerebrovascular disease, unspecified (principal)
CPT/HCPCS: 80061

== ENCOUNTER 2021-09-15 13:32 | Outpatient (CLI) | payer MEDICARE, MEDICAID, SELFPAY ==
--- NOTE | 2021-09-15 | DI.RAD_ITS ---
Exam(s) XR HIP RT COMPLETE AP PELVIS EXAM: XR HIP RT COMPLETE AP PELVIS INDICATION: Right Hip Pain, M25.551. COMPARISON: No exams were available for comparison TECHNIQUE: 2D digital imaging was performed. Two views. FINDINGS: Left hip prosthesis. Severe narrowing of the right hip joint space and prominent periarticular spur ring as well as sclerosis. Subchondral cysts are noted in the femoral head. Mild degenerative myrick es left SI joint. Degenerative changes lower lumbar spine. IMPRESSION: Severe degenerative changes right hip. Unremarkable left hip prosthesis. DATA REPOSITORY: RADIATION DOSE DELIVERED:
== END 2021-09-15 13:52 ==
PROVIDERS: PCP Family Medicine; Visit Provider Family Medicine
DX: M25.551 Pain in right hip (principal); Z96.642 Presence of left artificial hip joint; M16.11 Unilateral primary osteoarthritis, right hip; M53.3 Sacrococcygeal disorders, not elsewhere classified
CPT/HCPCS: 73502

== ENCOUNTER → 2021-09-24 01:32 | Outpatient (CLI) | payer MEDICARE, MEDICAID, SELFPAY ==
--- NOTE | 2021-09-24 07:15 | DI.US_ITS ---
Exam(s) US THYROID EXAM: US THYROID CLINICAL HISTORY: Assess for change of TR 5 lesion, thyroid nodule, E04.1. TECHNIQUE: Ultrasound thyroid performed using standard protocol. COMPARISON: US US THYROID from 02/20/2021 FINDINGS: Thyroid lobes again exhibit upper normal size. Small benign-appearing sub cm nodules in the left lobe are again noted. With the exception of the most superior aspect of the right lobe, there is minimal if any significant normal tissue in the right lobe. Instead, the right lobe is comprised of heterogeneous tissue with what is either multiple contiguous nodules or 1 large heterogeneous nodule. When comparing to the pr ior study (what was called a TR 5 level nodule)...... This nodule towards the superior aspect of the right lobe is predominantly solid (2 points), is mildly hyperechoic parenchyma (1 point), exhibits s mooth margins (0 points) and does not appear to contain echogenic foci (0 points). In the transverse plane it is minimally taller than wider (3 points). Therefore total points for this nodule is 6 points, making it a TR4 nodule. However, the largest delia surement of this nodule is 1.7 cm (which is in the craniocaudal plane), and therefore this nodule toro uld undergo ultrasound-guided FNA (since it measures greater than 1.5 cm). The remainder of the right lobe appears to contain similar but slightly smaller nodules which are migue ewhat difficult to differentiate as completely separate structures from the above described nodule. LYMPH NODES: There is no significant adenopathy. IMPRESSION: 1. Abnormal right thyroid lobe findings as described above. TiRads: 4 but measures greater than 1.5 cm and therefore recommend ultrasound-guided FNA. 2. There is no significant lymphadenopathy. DATA REPOSITORY:
== END ==
PROVIDERS: PCP Family Medicine; Visit Provider Otolaryngology
DX: E04.1 Nontoxic single thyroid nodule (principal); E07.89 Other specified disorders of thyroid
CPT/HCPCS: 76536

== ENCOUNTER 2021-10-27 08:03 | Emergency (ER) | payer MEDICARE, MEDICAID, SELFPAY ==
[2021-10-27 08:10] VITALS: BP 176/83; PULSE 84; RESP 14; TEMP 36.8; O2SAT 97
--- NOTE | 2021-10-27 08:28 | ED.GENADUL_ITS ---
Discharge Plan Disposition Patient Disposition: HOME Condition: Stable Discharge Details Clinical Impression: Cellulitis, Hypertension, Tick bite Primary Care Provider: [facility] ED Provider: Santosh Fragoso Home Meds and New Rx's Prescriptions: New clindamycin HCl 300 mg capsule 300 mg PO QID 5 Days Qty: 20 0RF No Action Algal [place]-3 DHA 200 mg capsule PO DAILY metformin 500 MG tablet 1,000 mg PO BID lisinopril 20 MG tablet 40 mg PO DAILY ascorbic acid (vitamin C) [Vitamin C] 500 MG capsule, extended release 500 mg PO DAILY vitamin B complex 1 EACH tablet 1 ea PO DAILY garlic 1 EACH tablet 1 ea PO DAILY cholecalciferol (vitamin D3) 2,000 UNIT tablet 5,000 unit PO DAILY Label Comments: Reports taking 5000 units not 6000 units as listed chromium amino acid chelate 400 MCG tablet 200 mcg PO DAILY essiac tea capsule 125 mg PO DAILY alpha lipoic acid 200 MG tablet 200 mg PO DAILY Label Comments: magnesium 100 mg Tablet 125 mg PO DAILY cranberry extract 500 mg Capsule 500 mg PO DAILY Lantus Solostar U-100 Insulin 100 unit/mL (3 mL) insulin pen 10 unit SUBCUT HS atorvastatin [Lipitor] 40 mg Tablet 40 mg PO QPM Qty: 30 0RF aspirin 81 mg tablet,delayed release (DR/EC) 81 mg PO DAILY Qty: 30 0RF amlodipine 2.5 mg tablet 2.5 mg PO DAILY Label Comments: TAKE ONE TABLET BY MOUTH EVERY DAY FOR BLOOD PRESSURE Discharge Instructions Instructions: Cellulitis (ED), Tick Bite (ED), Hypertension (ED) Additional Instructions: Please take the antibiotics as prescribed and continue to monitor your symptoms. If you have any new or significant worsening of symptoms feel free to return to the emergency department for reassessment or follow-up with your primary care provider. During today's visit your blood pressure was noted to be elevated. Please continue to monitor this and if you continue to have elevated blood pressure follow-up with your primary care provider for any medication adjustments as needed. Referrals: [facility] [Primary Care Provider] - Discharge Data Discharge Date/Time-TO BE ENTERED AT DEPARTURE: 10/27/21 08:45 Medical Decision Making Large engorged wood Tick on patient's right posterior thorax with significant surrounding erythema. Exam is otherwise unremarkable. Due to significant size of erythema I am concerned for secondary cellulitis. Not concerned for tickborne illness given denial of any other symptoms and feel low likelihood of Lyme due to not bull's-eye type rash and not a deer tick. Will place patient on clindamycin due to significant penicillin allergy and return and follow-up precautions were discussed. After discussion of diagnosis and plan of care patient has no further needs, questions, or concerns and states clear und erstanding to return to the emergency department for any worsening symptoms. This documentation was generated using [employer] dictation system, please disregard any oddities of phrase or misspellings. HPI General Mode of arrival: ambulatory . Date/Time Provider Initiated Documentation: 10/27/21 08:10 . Limitations to Documentation: no limitations . Information obtained by: patient and RN notes reviewed . History of Present Illness 80 year old F presents to the emergency department with the chief complaint of tick bite, Quality is described as other (Denies pain or other associated symptoms), Patient started experiencing this unknown and it has been constant. No relieving factors improve symptom(s), No exacerbating factors reported . Patient notes no other symptoms.. Patient did receive the following treatments prior to arrival, none Related Data Home Medications Medication Instructions Recorded Confirmed Essia Tea 125 mg PO DAILY 12/28/13 10/02/21 ascorbic acid (vitamin C) 500 mg 500 mg PO DAILY 12/28/13 10/02/21 capsule,extended release (Vitamin C) cholecalciferol (vitamin D3) 50 5,000 unit PO DAILY 12/28/13 10/02/21 mcg (2,000 unit) tablet chromium amino acid chelate 400 200 mcg PO DAILY 12/28/13 10/02/21 mcg tablet garlic 1 ea PO DAILY 12/28/13 10/02/21 lisinopril 20 mg tablet 40 mg PO DAILY 12/28/13 10/02/21 metformin 500 mg tablet 1,000 mg PO BID 12/28/13 10/02/21 vitamin B complex 1 ea PO DAILY 12/28/13 10/02/21 alpha lipoic acid 200 mg tablet 200 mg PO DAILY 01/17/16 10/02/21 cranberry extract 500 mg capsule 500 mg PO DAILY 06/13/20 10/02/21 insulin glargine 100 unit/mL (3 10 unit subcut HS 06/13/20 10/02/21 mL) subcutaneous pen (Lantus Solostar U-100 Insulin) magnesium 100 mg tablet 125 mg PO DAILY 06/13/20 10/02/21 aspirin 81 mg tablet,delayed 81 mg PO DAILY #30 tabs 06/19/20 10/02/21 release atorvastatin 40 mg tablet (Lipitor) 40 mg PO QPM #30 tabs 06/19/20 10/02/21 amlodipine 2.5 mg tablet 2.5 mg PO DAILY 09/18/20 10/02/21 docosahexaenoic acid 200 mg mg PO DAILY 10/02/21 10/02/21 capsule (Algal [place]-3 DHA) clindamycin HCl 300 mg capsule 300 mg PO QID 5 days #20 caps 10/27/21 Previous Rx's Medication Instructions Recorded aspirin 81 mg tablet,delayed 81 mg PO DAILY #30 tabs 06/19/20 release atorvastatin 40 mg tablet (Lipitor) 40 mg PO QPM #30 tabs 06/19/20 clindamycin HCl 300 mg capsule 300 mg PO QID 5 days #20 caps 10/27/21 Allergies Allergy/AdvReac Type Severity Reaction Status Date / Time Penicillins Allergy Severe Other (See Unverified 10/27/21 08:13 Comment) saxagliptin HCl Allergy Severe Other (See Unverified 10/27/21 08:13 [From Onglyza] Comment) prednisone AdvReac Unknown Unverified 10/27/21 08:13 General Stated Complaint: GenMedical EVA: 5 Review of Systems Narrative: 6 systems reviewed and unremarkable except what is marked below. Integumentary/Breasts Skin/Breast: Reports as per HPI and Reports erythema PFSH All Active Problems (Updated 10/27/21 @ 08:30 by Santosh Fragoso NP) Cellulitis (Acute) Impacted cerumen, bilateral (Acute) Insect bite (Acute) Tick bite (Acute) Sensorineural hearing loss of both ears (Acute) TIA (transient ischemic attack) (Acute) Type 2 diabetes mellitus (Chronic) Thyroid nodule (Acute) Thyroid nodule greater than or equal to 1.5 cm in diameter incidentally noted on imaging study (Acute) Hypertension (Chronic) Medical History Alopecia Arthritis Congenital ectodermal dysplasia Constipation Contact dermatitis Cystitis Deviated nasal septum Diabetes 2006 Diabetic peripheral neuropathy Dry eye syndrome pt sb Esophagitis Herpes zoster Hyponatremia Microalbuminuric diabetic nephropathy Neck stiffness Osteopenia Venous insufficiency Surgical History Hx of cataract surgery Total replacement of hip (~2000) Family History Son Diabetes COVID-19 Daughter History of diabetes mellitus Daughter History of diabetes mellitus Daughter History of diabetes mellitus Brother Brain tumor Brother Stroke Brother Bladder cancer Social History Smoking/Tobacco Use Status: Never Smoking risk assessment performed?: Yes Alcohol Intake: never Drug use: Never Substance use type: does not use Number of Children: 4 Pets and animals: No Current gender identity: female Do you feel safe at home: Yes Do you feel safe in your relationship?: Yes Exam Const General: cooperative, comfortable and no acute distress Orientation: alert, awake and oriented x3 Resp Effort & Inspection: normal respiratory effort and able to speak in complete sentences Auscultation: clear to auscultation bilaterally Cardio Rate: regular rate Rhythm: regular rhythm Heart Sounds: S1 normal and S2 normal Skin General skin exam: erythema (Circular area with central bite obdulio consistent with insect/tick bite), no fluctuance and no induration Rashes: no rashes Full body images: 1. Central tick bite with surrounding erythema Neuro General: patient alert, patient awake and patient oriented x3 Course Vital Signs Vital signs: Vital Signs Temperature 36.8 C 10/27/21 08:10 Pulse 84 10/27/21 08:10 Respiratory Rate 14 10/27/21 08:10 Blood Pressure 176/83 H 10/27/21 08:10 Pulse Oximetry 97 10/27/21 08:10 Temperature 36.8 C 10/27/21 08:10 Temperature Source Oral 10/27/21 08:10 Pulse 84 10/27/21 08:10 Respiratory Rate 14 10/27/21 08:10 Blood Pressure 176/83 H 10/27/21 08:10 Blood Pressure Position Sitting 10/27/21 08:10 Pulse Oximetry 97 10/27/21 08:10 Oxygen Delivery Method Room Air 10/27/21 08:10 Oxygen Flow Rate 0 10/27/21 08:10 Pain Level 0 10/27/21 08:10
[2021-10-27 08:43] VITALS: BP 122/67; PULSE 67; RESP 14; O2SAT 100
[2021-10-27] MEDS: Clindamycin 150 MG CAP 450 MG PO (08:43)
[2021-10-27] MEDS: Clindamycin 150 MG CAP (08:43)
== END 2021-10-27 08:45 | disposition home or self-care (01) ==
PROVIDERS: Emergency Provider Nurse Practitioner Family; PCP Family Medicine
DX: S20.461A Insect bite (nonvenomous) of right back wall of thorax, initial encounter (principal); L03.818 Cellulitis of other sites; W57.XXXA Bitten or stung by nonvenomous insect and other nonvenomous arthropods, initial encounter; I10 Essential (primary) hypertension
CPT/HCPCS: 99283

== ENCOUNTER 2021-11-07 09:15 | Emergency (ER) | payer MEDICARE, MEDICAID, SELFPAY ==
[2021-11-07 09:19] VITALS: BP 179/62; PULSE 72; RESP 16; TEMP 36.5; O2SAT 98
--- NOTE | 2021-11-07 09:28 | ED.GENADUL_ITS ---
Discharge Plan Disposition Patient Disposition: HOME Condition: Stable Discharge Details Clinical Impression: Tick bite, Hypertension Primary Care Provider: [facility] ED Provider: Santosh Fragoso Home Meds and New Rx's Prescriptions: New doxycycline hyclate 100 mg capsule 100 mg PO BID Qty: 10 0RF Continued Algal [place]-3 DHA 200 mg capsule 200 mg PO DAILY metformin 500 MG tablet 1,000 mg PO BID lisinopril 20 MG tablet 40 mg PO DAILY ascorbic acid (vitamin C) [Vitamin C] 500 MG capsule, extended release 500 mg PO DAILY vitamin B complex 1 EACH tablet 1 ea PO DAILY garlic 1 EACH tablet 1 ea PO DAILY cholecalciferol (vitamin D3) 2,000 UNIT tablet 5,000 unit PO DAILY Label Comments: Reports taking 5000 units not 6000 units as listed chromium amino acid chelate 400 MCG tablet 200 mcg PO DAILY essiac tea capsule 125 mg PO DAILY alpha lipoic acid 200 MG tablet 200 mg PO DAILY Label Comments: magnesium 100 mg Tablet 125 mg PO DAILY cranberry extract 500 mg Capsule 500 mg PO DAILY insulin glargine [Lantus Solostar U-100 Insulin] 100 unit/mL (3 mL) insulin pen 10 unit SUBCUT HS aspirin 81 mg tablet,delayed release (DR/EC) 81 mg PO DAILY Qty: 30 0RF amlodipine 2.5 mg tablet 2.5 mg PO DAILY Label Comments: TAKE ONE TABLET BY MOUTH EVERY DAY FOR BLOOD PRESSURE Discharge Instructions Instructions: Tick Bite (ED), Hypertension (ED) Additional Instructions: It is very important that you take your new antibiotic as prescribed and please contact us if you do not tolerate this medication due to it being very important that you treat your skin infection with an antibiotic. If you have significant worsening of symptoms please return to the emergency department for reassessment otherwise follow-up with your primary care provider for a recheck preferably in 1 week. It is also been noted on the last 2 visits that your blood pressure has been elevated. Please ensure that you are taking your prescribed medications and follow-up with your primary care provider for recheck of your blood pressure. Referrals: [facility] [Primary Care Provider] - 1 week Medical Decision Making Patient presenting to the emergency department for chief complaint of redness around tick bite. I am well familiar with this patient as I removed a wood tick and place patient on clindamycin due to surrounding cellulitis. Patient reports that she did not tolerate the antibiotic and just took vitamin C and vitamin A which temporarily helped but redness has returned. Patient denies any other symptoms. Physical exam shows erythema with central tick bite to the right posterior thorax. Exam is otherwise unremarkable. We will place patient on doxycycline due to anaphylactoid type reaction to penicillins and not tolerating clindamycin. Patient was also encouraged to monitor blood pressure and follow- up with primary care provider due to hypertension noted on last 2 visits. After discussion of diagnosis and plan of care patient has no further needs, questio ns, or concerns and states clear understanding to return to the emergency department for any worsening symptoms. This documentation was generated using [email or web address] dictation system, please disregard any oddities of phrase or misspellings. HPI General Mode of arrival: ambulatory . Date/Time Provider Initiated Documentation: 11/07/21 09:23 . Limitations to Documentation: no limitations . Information obtained by: patient, RN notes reviewed and old records reviewed . History of Present Illness 80 year old F presents to the emergency department with the chief complaint of reddness from tick bite, described as mild, with intensity rated at 2. Quality is described as aching, and is localized to the back. Patient reports no radiation. Patient started experiencing this day(s) (1) and it has been constant. Medication improves symptom(s), No exacerbating factors reported . Patient notes no other symptoms.. Patient did receive the following treatments prior to arrival, none Related Data Home Medications Medication Instructions Recorded Confirmed [facility] Tea 125 mg PO DAILY 12/28/13 11/07/21 ascorbic acid (vitamin C) 500 mg 500 mg PO DAILY 12/28/13 11/07/21 capsule,extended release (Vitamin C) cholecalciferol (vitamin D3) 50 5,000 unit PO DAILY 12/28/13 11/07/21 mcg (2,000 unit) tablet chromium amino acid chelate 400 200 mcg PO DAILY 12/28/13 11/07/21 mcg tablet garlic 1 ea PO DAILY 12/28/13 11/07/21 lisinopril 20 mg tablet 40 mg PO DAILY 12/28/13 11/07/21 metformin 500 mg tablet 1,000 mg PO BID 12/28/13 11/07/21 vitamin B complex 1 ea PO DAILY 12/28/13 11/07/21 alpha lipoic acid 200 mg tablet 200 mg PO DAILY 01/17/16 11/07/21 cranberry extract 500 mg capsule 500 mg PO DAILY 06/13/20 11/07/21 insulin glargine 100 unit/mL (3 10 unit subcut HS 06/13/20 11/07/21 mL) subcutaneous pen (Lantus Solostar U-100 Insulin) magnesium 100 mg tablet 125 mg PO DAILY 06/13/20 11/07/21 aspirin 81 mg tablet,delayed 81 mg PO DAILY #30 tabs 06/19/20 11/07/21 release amlodipine 2.5 mg tablet 2.5 mg PO DAILY 09/18/20 11/07/21 docosahexaenoic acid 200 mg 200 mg PO DAILY 10/02/21 11/07/21 capsule (Algal [place]-3 DHA) doxycycline hyclate 100 mg capsule 100 mg PO BID #10 caps 11/07/21 Previous Rx's Medication Instructions Recorded aspirin 81 mg tablet,delayed 81 mg PO DAILY #30 tabs 06/19/20 release doxycycline hyclate 100 mg capsule 100 mg PO BID #10 caps 11/07/21 Allergies Allergy/AdvReac Type Severity Reaction Status Date / Time Penicillins Allergy Severe Other (See Unverified 11/07/21 09:22 Comment) saxagliptin HCl Allergy Severe Other (See Unverified 11/07/21 09:22 [From Onglyza] Comment) prednisone AdvReac Unknown Unverified 11/07/21 09:22 General Stated Complaint: RashLesion EVA: 5 Review of Systems Narrative: 6 systems reviewed and unremarkable except what is marked below. Integumentary/Breasts Skin/Breast: Reports as per HPI, Reports erythema, Denies rash and Reports skin pain PFSH All Active Problems (Updated 11/07/21 @ 09:34 by Santosh Fragoso NP) Cellulitis (Acute) Impacted cerumen, bilateral (Acute) Insect bite (Acute) Tick bite (Acute) Sensorineural hearing loss of both ears (Acute) TIA (transient ischemic attack) (Acute) Type 2 diabetes mellitus (Chronic) Thyroid nodule (Acute) Thyroid nodule greater than or equal to 1.5 cm in diameter incidentally noted on imaging study (Acute) Hypertension (Chronic) Medical History Alopecia Arthritis Congenital ectodermal dysplasia Constipation Contact dermatitis Cystitis Deviated nasal septum Diabetes 2006 Diabetic peripheral neuropathy Dry eye syndrome pt sb Esophagitis Herpes zoster Hyponatremia Microalbuminuric diabetic nephropathy Neck stiffness Osteopenia Venous insufficiency Surgical History Hx of cataract surgery Total replacement of hip (~2000) Family History Son Diabetes COVID-19 Daughter History of diabetes mellitus Daughter History of diabetes mellitus Daughter History of diabetes mellitus Brother Brain tumor Brother Stroke Brother Bladder cancer Social History Smoking/Tobacco Use Status: Never Smoking risk assessment performed?: Yes Alcohol Intake: never Drug use: Never Substance use type: does not use Number of Children: 4 Pets and animals: No Current gender identity: female Do you feel safe at home: Yes Do you feel safe in your relationship?: Yes Exam Const General: cooperative, comfortable and no acute distress Orientation: alert, awake and oriented x3 Resp Effort & Inspection: normal respiratory effort and able to speak in complete sentences Skin General skin exam: erythema (Circular area with central bite obdulio consistent with insect/tick bite), no fluctuance, no induration and other Rashes: no rashes Neuro General: patient alert, patient awake and patient oriented x3 Course Vital Signs Vital signs: Vital Signs Temperature 36.5 C 11/07/21 09:19 Pulse 72 11/07/21 09:19 Respiratory Rate 16 11/07/21 09:19 Blood Pressure 179/62 H 11/07/21 09:19 Pulse Oximetry 98 11/07/21 09:19 Temperature 36.5 C 11/07/21 09:19 Temperature Source Temporal Artery Scan 11/07/21 09:19 Pulse 72 11/07/21 09:19 Respiratory Rate 16 11/07/21 09:19 Respiratory Effort Non-Labored 11/07/21 09:22 Blood Pressure 179/62 H 11/07/21 09:19 Blood Pressure Position Sitting 11/07/21 09:19 Pulse Oximetry 98 11/07/21 09:19 Oxygen Delivery Method Room Air 11/07/21 09:19 Oxygen Flow Rate 0 11/07/21 09:19 Pain Level 0 11/07/21 09:19
== END 2021-11-07 09:39 | disposition home or self-care (01) ==
PROVIDERS: Emergency Provider Nurse Practitioner Family; PCP Family Medicine
DX: S20.461A Insect bite (nonvenomous) of right back wall of thorax, initial encounter (principal); I10 Essential (primary) hypertension; E11.42 Type 2 diabetes mellitus with diabetic polyneuropathy; M19.90 Unspecified osteoarthritis, unspecified site; Z79.84 Long term (current) use of oral hypoglycemic drugs; Z79.4 Long term (current) use of insulin; W57.XXXA Bitten or stung by nonvenomous insect and other nonvenomous arthropods, initial encounter
CPT/HCPCS: 99283; 99284

== ENCOUNTER 2021-12-15 18:52 | Outpatient (REF) | payer MEDICARE, MEDICAID, SELFPAY ==
[2021-12-15 15:56] LABS: Anion Gap 11.4 mmol/L (3-11); BUN 15 mg/dL (7-18); CO2 27.6 mmol/L (21.0-32.0); CREATININE 0.7 mg/dL (0.55-1.02); Calcium 9.4 mg/dL (8.5-10.1); Chloride 98 mmol/L (98-107); Glucose 135 mg/dL (74-106); Potassium 4.6 mmol/L (3.5-5.1); Sodium 137 mmol/L (136-145)
== END 2021-12-15 18:53 | disposition home or self-care (01) ==
LOC: NCHCN 18:52
PROVIDERS: PCP Family Medicine; Visit Provider Family Medicine
DX: E04.1 Nontoxic single thyroid nodule (principal); E11.9 Type 2 diabetes mellitus without complications
CPT/HCPCS: 80048; 84443

== ENCOUNTER → 2022-01-09 09:23 | Outpatient (BNVA) | payer MEDICARE, MEDICAID, SELFPAY | PROVIDERS: PCP Family Medicine; Referring Provider Family Medicine; Visit Provider Student in an Organized Health Care Education/Training Program | DX: M16.11 Unilateral primary osteoarthritis, right hip (principal) | CPT/HCPCS: 99213 ==

== ENCOUNTER 2022-02-09 14:44 | Outpatient (CLI) | payer MEDICARE, MEDICAID, SELFPAY ==
--- NOTE | 2022-02-09 13:00 | DI.RAD_ITS ---
Exam(s) XR PELVIS AP EXAM: XR PELVIS AP CLINICAL HISTORY: right hip DJD. TECHNIQUE: 2D digital imaging was performed. COMPARISON: No exams were available for comparison FINDINGS: BONES: No acute fracture is present. No bony destructive lesion is seen. JOINTS: No dislocation present. Stable appearance of left hip prosthesis. Stable appearance severe degenerative changes of the right hip. Prominent spurring and severe joint space narrowing as well a s subchondral cyst formation is again. SOFT TISSUE: Normal. IMPRESSION: Stable severe degenerative changes of the right hip. DATA REPOSITORY: RADIATION DOSE DELIVERED:
== END 2022-02-09 14:45 | disposition home or self-care (01) ==
LOC: DIORS 14:45
PROVIDERS: PCP Family Medicine; Referring Provider Family Medicine; Visit Provider Physician Assistant
DX: M16.11 Unilateral primary osteoarthritis, right hip (principal); Z01.818 Encounter for other preprocedural examination
CPT/HCPCS: 72170

== ENCOUNTER 2022-02-16 02:58 | Outpatient (CLI) | payer MEDICARE, MEDICAID, SELFPAY ==
[2022-02-16 12:42] LABS: HGB 13.2 g/dL (11.2-15.7); MCH 29.3 pg (27.0-33.0); MCHC 33.8 % (32.0-36.0); MCV 87 fL (80-95); MPV 10.1 fL (8.0-11.0); Platelet Count 282 10^3/uL (130-400); RBC 4.51 10^6/uL (3.93-5.22); RDW 12.2 % (11.7-14.6); RDW-SD 38.6 fL; WBC 7.58 10^3/uL (4.4-10.8)
[2022-02-16 13:04] LABS: Hemoglobin A1C 7.2 % (<5.7)
[2022-02-16 13:06] LABS: Anion Gap 9.4 mmol/L (3-11); BUN 15 mg/dL (7-18); CO2 29.6 mmol/L (21.0-32.0); CREATININE 0.7 mg/dL (0.55-1.02); Calcium 9.5 mg/dL (8.5-10.1); Chloride 97 mmol/L (98-107); Estimated GFR 86.83 (mL/min/1.73m2); Glucose 132 mg/dL (74-106); Potassium 4.5 mmol/L (3.5-5.1); Sodium 136 mmol/L (136-145)
== END 2022-02-16 02:59 | disposition home or self-care (01) ==
LOC: LBO 02:59
PROVIDERS: PCP Family Medicine; Visit Provider Student in an Organized Health Care Education/Training Program
DX: M25.551 Pain in right hip (principal); M16.11 Unilateral primary osteoarthritis, right hip; E11.9 Type 2 diabetes mellitus without complications; Z01.818 Encounter for other preprocedural examination; Z01.812 Encounter for preprocedural laboratory examination
CPT/HCPCS: 36415; 80048; 85027; 83036

== ENCOUNTER 2022-02-18 08:17 | Observation (INO) | payer MEDICARE, MEDICAID, SELFPAY ==
[2022-02-18] VITALS (17 sets, daily range): BP systolic 111–172; BP diastolic 57–82; PULSE 60–74; RESP 12–20; TEMP 35.1–37.1; O2SAT 94–100; BMI 26.2
--- NOTE | 2022-02-18 08:20 | DSE_ITS ---
Date of service: 02/19/22 Time of Service: 07:30 DS: Diagnosis Discharge Diagnosis (1) Degenerative joint disease of right hip: Status: Chronic Discharge Plan Disposition Patient Disposition: HOME W/HOME HEALTH SERVICE Condition: Good Discharge Details Reason For Visit: Right hip DJD Admit Date/Time: 02/18/22 08:17 Admit Provider: Alejandro Pandya Attending Provider: Alejandro Pandya Primary Care Provider: [facility] Course Hospital Course: Patient was admitted to the medical/surgical floor following the procedure. The surgery was tolerated well without any notable medical, surgical, or anesthetic complications. Mobilization began postoperatively. She was voiding spontaneously. Vitals were stable. Physical therapy worked with the patient and was cleared for discharge home. No acute medical issues. Pain was controlled on oral regimen. Home Meds and New Rx's Prescriptions: New acetaminophen 500 mg tablet 1,000 mg PO Q8H PRN (Reason: pain) Qty: 90 3RF celecoxib 200 mg capsule 200 mg PO BID PRN (Reason: pain) Qty: 60 1RF pantoprazole 40 mg tablet,delayed release (DR/EC) 40 mg PO DAILY Qty: 30 0RF oxycodone 5 mg tablet 5 mg PO Q4H Qty: 12 0RF Continued Algal [place]-3 DHA 200 mg capsule 200 mg PO DAILY collagen PO metformin 500 MG tablet 1,000 mg PO BID lisinopril 20 MG tablet 40 mg PO DAILY vitamin B complex 1 EACH tablet 1 ea PO DAILY garlic 1 EACH tablet 1 ea PO DAILY cholecalciferol (vitamin D3) 2,000 UNIT tablet 5,000 unit PO DAILY Label Comments: Reports taking 5000 units not 6000 units as listed chromium amino acid chelate 400 MCG tablet 200 mcg PO DAILY essiac tea capsule 125 mg PO DAILY magnesium 100 mg tablet 125 mg PO BID insulin glargine [Lantus Solostar U-100 Insulin] 100 unit/mL (3 mL) insulin pen 12 unit SUBCUT HS Label Comments: 6 units Vel's wort 300 mg tablet 300 mg PO DAILY alpha lipoic acid 200 MG tablet 200 mg PO DAILY Label Comments: cranberry extract 500 mg Capsule 500 mg PO DAILY amlodipine 2.5 mg tablet 2.5 mg PO DAILY Label Comments: TAKE ONE TABLET BY MOUTH EVERY DAY FOR BLOOD PRESSURE Changed aspirin 81 mg tablet,delayed release (DR/EC) 81 mg PO BID Qty: 60 0RF Discharge Instructions Additional Instructions: Total Hip Discharge Instructions Activity: The most important activity is to walk. You should try to take short walks a few times a day. You have no restrictions on movement or positioning, but do not try to force what you do. You will find some stiffness and weakness with hip flexion (lifting your knee). Do not try to strengthen this too early, continue to practice walking and stairs and this will come. - Home health physical therapy will be ordered to help return you to improved ambulatory function. - You should wear the BRANDEN hose on both legs for 2 weeks. Dressing: Keep the surgical dressing in place for at least one week. After the first week it may be removed and replace with light gauze and tape or nothing. It may get wet after 3 days but avoid soaking the dressing. If it gets wet, just lightly pat dry. It is important to always keep some gauze between skin folds, especially when you are sitting. Spend some time with the wound exposed when you are lying flat as the incision does wrinkle onto itself. Medications: - You should take Tylenol and an anti-inflammatory Celebrex as your primary pain control medications. If the Celebrex is too expensive or not covered, please call the office for another alternative (Advil/Ibuprofen or Naproxen/Aleve). - You have been prescribed a stronger pain medication Oxycodone for breakthrough pain, take as needed as prescribed. - You have also been prescribed a stomach acid reduction agent Pantoprozole to help reduce stomach acid and reflux. - You will be taking Aspirin 81mg twice a day for DVT prevention unless instructed otherwise. - If you have constipation you should take Colace or Miralax (both [id number]). As discussed previously you may also take your preferred supplement of [place]. It takes most people 3-4 days to have a bowel movement. Follow-up: 2 weeks If you have any acute concerns or questions, please do not hesitate to contact the office at [phone]. You may contact Dr. Pandya with any questions after hours through the hospital at [phone] or on his cell phone at [phone]. 1. Encounter Date and Reason I certify that Ananya Pitts was seen by Alejandro Pandya MD on 02/19/22 and that I had a [id number] encounter with this patient that meets the physician face to face encounter requirements. 2. Clinical Findings Supporting Skilled Need and Homebound Status I certify that home health services are medically necessary, include either intermittent assisted and/or physical/speech therapy, and that this patient is homebound in that absences from the home require considerable and taxing effort and are infrequent or of short duration, or are attributable to the need to receive medical care. [X] (a) Attached documentation from encounter provides clinical findings supporting skilled need and homebound status (including what assistance patient requires to leave the home). The encounter with the patient was in whole, or in part, for the following medical condition, which is the primary reason for home health care: Right hip DJD Nursing Home: Physical Therapy: Ananya will benefit from home health physical theapy as she recovers from a right anterior hip arthroplasty. She has notable gait abnormality and weakness from years of deconditioning and the recent surgery. She is WBAT with assistive devices and has no positioning restrictions. Speech Therapy: Homebound: Ananya is unable to leave her home unassisted. She has weakness and gait dysfunction. 3. Certification and Authentication I certify that I composed the above information based on my clinical judgement relating to this patient's medical condition and, if applicable, clinical findings communicated to me by the NPP or inpatient physician who performed the Home Health Referral. All further orders will be obtained through Dr. Pandya Referrals: Alejandro Pandya MD [ [facility] STAFF PHYSICIAN] - Activity:: Activity as Tolerated Equipment/Supplies:: Walker Diet:: As Tolerated Discharge Orders Discharge Orders: Discharge Order (Routine); Ordered 02/19/22 Ordered By: Alejandro Pandya DS: Summary Time Spent with Patient providing and/or coordinating discharge services: Less than 30 minutes Status at Discharge Functional status at discharge: uses cane/walker Overall status at discharge: patient is progressing back to baseline Mental Status: mental status grossly normal Speech and Movement: speech and movement normal Mood: congruent mood Affect: normal affect Exam Narrative Exam Narrative: Ananya is sitting up in the bed. NAD. AAOx3. Dressing c/d/i. No pain with hip ER/IR. Intacdt sensation to LFCN. Psych Mental Status: mental status grossly normal Speech and Movement: speech and movement normal Mood: congruent mood Affect: normal affect DS: Data Vitals/I&O Vitals and I&O: Intake & Output 02/17/22 02/17/22 02/18/22 11:59 23:59 11:59 Weight 162 lb 0.001 oz Data Completed and Pending Labs on day of discharge: Labs from last 24 hours 02/18/22 09:00 COVID-19 Source Pending SARS-CoV-2 (PCR) Pending PFSH All Active Problems Degenerative joint disease of right hip (Chronic) Impacted cerumen, bilateral (Acute) Insect bite (Acute) Tick bite (Acute) Sensorineural hearing loss of both ears (Acute) TIA (transient ischemic attack) (Acute) Type 2 diabetes mellitus (Chronic) Thyroid nodule (Acute) Thyroid nodule greater than or equal to 1.5 cm in diameter incidentally noted on imaging study (Acute) Hypertension (Chronic) Medical History Alopecia Arthritis Atrophic vaginitis (08/28/14) Congenital ectodermal dysplasia Constipation Contact dermatitis Cystitis Deviated nasal septum Diabetes 2006 Diabetic peripheral neuropathy Dry eye syndrome pt sb Esophagitis Herpes zoster Hyponatremia Microalbuminuric diabetic nephropathy Neck stiffness Osteopenia Sleep apnea Sleeps on side - mild case Venous insufficiency Surgical History Hx of cataract surgery Bilateral DOS: 2020 Status post tubal ligation (~1982) Total replacement of hip (~2000) Left Family History Son Diabetes COVID-19 Daughter History of diabetes mellitus Daughter History of diabetes mellitus Daughter History of diabetes mellitus Brother Brain tumor Brother Stroke Brother Bladder cancer Social History Smoking/Tobacco Use Status: Never Smoking risk assessment performed?: Yes Alcohol Intake: never Drug use: Never Substance use type: does not use Number of Children: 4 Pets and animals: No Current gender identity: female Do you feel safe at home: Yes Do you feel safe in your relationship?: Yes Additional Social history: unable assess privately
[2022-02-18 09:27] LABS: Source Nasal/Nares
[2022-02-18] MEDS: Lactated Ringers 1,000 ML 80 ML IV (09:50)
[2022-02-18] MEDS: Celecoxib 200 MG CAP 400 MG PO (09:50)
[2022-02-18] MEDS: Acetaminophen 500 MG TAB 1000 MG PO ×3 (09:50→20:32)
--- NOTE | 2022-02-18 10:07 | ANES.PREOP_ITS ---
General Info Date of Service Date Performed: 02/18/22 Height: 5 ft 6 in Weight: 73.7 kg Body Mass Index (BMI): 26.2 Surgical Procedure: Operation Date: 02/18/22 12:20 Proposed Procedure Side Surgeon p Hip Total Hip Anterior Right Alejandro Pandya MD Meds Allergies and Home Medications Allergies Allergy/AdvReac Type Severity Reaction Status Date / Time Penicillins Allergy Severe Other (See Unverified 02/18/22 09:30 Comment) saxagliptin HCl Allergy Severe Other (See Unverified 02/18/22 09:30 [From Onglyza] Comment) adhesive Allergy Intermediate Skin Rash Unverified 02/18/22 09:30 prednisone AdvReac Unknown Unverified 02/18/22 09:30 Home Medication Medication Instructions Recorded Essiac Tea 125 mg PO DAILY 12/28/13 cholecalciferol (vitamin D3) 50 5,000 unit PO DAILY 12/28/13 mcg (2,000 unit) tablet chromium amino acid chelate 400 200 mcg PO DAILY 12/28/13 mcg tablet garlic 1 ea PO DAILY 12/28/13 lisinopril 20 mg tablet 40 mg PO DAILY 12/28/13 metformin 500 mg tablet 1,000 mg PO BID 12/28/13 vitamin B complex 1 ea PO DAILY 12/28/13 alpha lipoic acid 200 mg tablet 200 mg PO DAILY 01/17/16 cranberry extract 500 mg capsule 500 mg PO DAILY 06/13/20 aspirin 81 mg tablet,delayed 81 mg PO DAILY #30 tabs 06/19/20 release amlodipine 2.5 mg tablet 2.5 mg PO DAILY 09/18/20 docosahexaenoic acid 200 mg 200 mg PO DAILY 10/02/21 capsule (Algal [place]-3 DHA) [place]'s wort 300 mg tablet 300 mg PO DAILY 11/26/21 insulin glargine 100 unit/mL (3 12 unit subcut HS 11/26/21 mL) subcutaneous pen (Lantus Solostar U-100 Insulin) magnesium 100 mg tablet 125 mg PO BID 11/26/21 collagen PO 02/09/22 Current Visit Medications: Current Medications Generic Name Dose Route Start Last Admin Trade Name Freq PRN Reason Stop Dose Admin Acetaminophen 1,000 mg 02/18/22 06:00 02/18/22 09:50 Acetaminophen 500 Mg Tab PO 02/18/22 16:00 1,000 mg PREOP CRIS Administration Acetaminophen 1,000 mg 02/18/22 14:00 Acetaminophen 500 Mg Tab PO TID [facility] Aspirin 81 mg 02/18/22 20:00 Aspirin E.C. 81 Mg Tabec PO BID [facility] Celecoxib 400 mg 02/18/22 06:00 02/18/22 09:50 Celecoxib 200 Mg Cap PO 02/18/22 16:00 400 mg PREOP CRIS Administration Celecoxib 200 mg 02/18/22 20:00 Celecoxib 200 Mg Cap PO BID CRIS Docusate Sodium 100 mg 02/18/22 08:19 Docusate Sodium 100 Mg Cap PO BID PRN PRN Constipation Hydromorphone HCl 0.5 mg 02/18/22 08:19 Hydromorphone 2 Mg/Ml Syr IVP Q2H PRN PRN Tranexamic Acid 1,000 mg/ 60 mls @ 360 mls/hr 02/18/22 06:00 Sodium Chloride IV 02/18/22 16:00 PREOP [facility] Ringer's Solution 1,000 mls @ 80 mls/hr 02/18/22 06:00 02/18/22 09:50 IV 03/19/22 23:59 80 mls/hr INFUSION [facility] Administration Cefazolin Sodium/Dextrose 2 gm in 50 mls @ 100 mls/hr 02/18/22 06:00 Ancef Duplex IVPB 03/19/22 23:59 PREOP CRIS Cefazolin Sodium/Dextrose 1 gm in 50 mls @ 100 mls/hr 02/18/22 10:00 Ancef Duplex IVPB 02/19/22 02:29 Q8H [facility] IV Miscellaneous Supplies 1 each 02/18/22 06:00 Iv Access IV 03/19/22 23:59 DIRECTED [facility] Ondansetron HCl 4 mg 02/18/22 08:19 Ondansetron 4 Mg/2 Ml Vial IVP Q6H PRN PRN Nausea Oxycodone HCl 0 mg 02/18/22 08:19 Oxycodone 5 Mg Tab PO Q3H PRN PRN Pain Pantoprazole Sodium 40 mg 02/19/22 07:30 Pantoprazole 40 Mg Tabcr PO DAILY@0730 CRIS Polyethylene Glycol 17 gm 02/18/22 08:19 Polyethylene Glycol 3350 17 Gm Packet PO BID PRN PRN Constipation Sodium Chloride 0 ml 02/18/22 06:00 Normal Saline Flush 10 Ml Syr IV 03/19/22 23:59 PRN PRN Sodium Chloride 0 ml 02/18/22 06:00 Normal Saline 10 Ml Vial IJ 03/19/22 23:59 DIRECTED PRN Sterile Water 0 ml 02/18/22 06:00 Water,Injection,Sterile 10 Ml Vial IJ 03/19/22 23:59 DIRECTED PRN PFSH Active Problems Active Problems: Problem Status Onset Code Degenerative joint disease of right hip M16.11 Impacted cerumen, bilateral H61.23 Insect bite W57.XXXA Tick bite W57.XXXA 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 TIA (transient ischemic attack) G45.9 Type 2 diabetes mellitus E11.9 Thyroid nodule E04.1 Thyroid nodule greater than or equal to 1.5 cm in diameter incidentally noted on imaging study E04.1 Hypertension Medical History Medical History Alopecia Arthritis Atrophic vaginitis (08/28/14) Congenital ectodermal dysplasia Constipation Contact dermatitis Cystitis Deviated nasal septum Diabetes 2006 Diabetic peripheral neuropathy Dry eye syndrome pt sb Esophagitis Herpes zoster Hyponatremia Microalbuminuric diabetic nephropathy Neck stiffness Osteopenia Sleep apnea Sleeps on side - mild case Venous insufficiency Surgical History Surgical History Hx of cataract surgery Bilateral DOS: 2020 Status post tubal ligation (~1982) Total replacement of hip (~2000) Left Tobacco Smoking/Tobacco Use Status: Never Alcohol Alcohol Intake: never Substance Use Substance use: Never Substance use type: does not use Vital Signs and Lab Results Vital Signs Most Recent Vital Signs in EMR: Most Recent Vital Signs Temp Pulse Resp BP Pulse Ox 36.5 C 66 18 172/82 H 100 02/18/22 09:40 02/18/22 09:40 02/18/22 09:40 02/18/22 09:40 02/18/22 09:40 Point of Care Results Point of Care Results: Finger Stick Blood Glucose 126 02/18/22 09:35 Lab Results Blood Type / Crossmatch: No Data to Display Complete Blood Count: White Blood Count 7.58 10^3/uL (4.4-10.8) 02/16/22 12:35 Red Blood Count 4.51 10^6/uL (3.93-5.22) 02/16/22 12:35 Hemoglobin 13.2 g/dL (11.2-15.7) 02/16/22 12:35 Hematocrit 39.0 % (36.0-46.0) 02/16/22 12:35 Platelet Count 282 10^3/uL (130-400) 02/16/22 12:35 Complete Metabolic Panel: Sodium 136 mmol/L (136-145) 02/16/22 12:35 Potassium 4.5 mmol/L (3.5-5.1) 02/16/22 12:35 Chloride 97 mmol/L (98-107) L 02/16/22 12:35 Carbon Dioxide 29.6 mmol/L (21.0-32.0) 02/16/22 12:35 BUN 15 mg/dL (7-18) 02/16/22 12:35 Creatinine 0.7 mg/dL (0.55-1.02) 02/16/22 12:35 Est GFR (CKD-EPI 2020) 86.83 (mL/min/1.73m2) 02/16/22 12:35 Calcium 9.5 mg/dL (8.5-10.1) 02/16/22 12:35 Glucose 132 mg/dL (74-106) H 02/16/22 12:35 Hemoglobin A1c 7.2 % (<5.7) H 02/16/22 12:35 Liver Function Panel: No Data to Display Coagulation Panel: No Data to Display Cardiac Panel: 2 No Data to Display Arterial Blood Gas: No Data to Display Venous Blood Gas: No Data to Display Pancreas Panel: No Data to Display Thyroid Panel: No Data to Display Infectious Disease: Coronavirus 2019 Source Nasal/Nares 02/18/22 08:00 Blood Cultures: No Data to Display Toxicology Panel: No Data to Display Imaging and Studies Imaging and Studies Study information below may be from another EMR and interpreted by another provider. Please see original notes in EMR for more complete details. EKG Summary: 06/2020: sinus rhythm. Echocardiogram Summary: ECHO taken in 2020, however no official read in [place] Carotid Artery Summary:: 06/2020: 1. No evidence for hemodynamically significant carotid stenosis. 2. Unexpected finding of 3.7 centimeter TR 5 nodule. Biopsy is recommended. Anesthesia Assessment and Plan Anesthesia History Personal History: No History of Anesthesia Complications Family History: No Family History of Anesthesia Complications Exercise Tolerance Exercise Tolerance: Metabolic Equivalents>4 Pertinent Negatives Pertinent Negatives: No Symptoms of GERD, No Major Cardiovascular Symptoms or Complaints and No Major Pulmonary Symptoms or Complaints Cardiac & Pulmonary Exam Cardiac Exam: Normal S1/S2 Heart Sounds Pulmonary Exam: Clear Bilateral Breath Sounds Implantable Cardiac Device Does patient have a Pacemaker or an ICD?: No Airway Exam Known Difficult Airway: No Mallampati Class: 3 Mouth Opening: Narrow (< 3cm) Thyromental Distance: Greater than 3 cm Neck Range of Motion: Limited ROM Neck Circumference: Normal Teeth Condition: Normal Dentition and Removable Dentures/Plates Upper ASA Classification ASA Score: ASA 3 Emergency Case?: No NPO Status NPO Status: NPO Clears >2 hours, Solids >8 hours Anesthesia Plan Resuscitation Status: Full Code Anesthesia Technique: Spinal Anesthesia Airway Planned: Natural Airway Monitors Used: Standard Monitors
[2022-02-18] MEDS: ceFAZolin 2 GM/50 ML BAG IVPB (12:03)
--- NOTE | 2022-02-18 13:22 | DI.RAD_ITS ---
Exam(s) XR HIP RT IN OR EXAM: XR HIP RT IN OR CLINICAL HISTORY: DJD right hip TECHNIQUE: 2D and realtime digital imaging was performed. COMPARISON: No exams were available for comparison FINDINGS: C-arm fluoroscopy was utilized by Dr. Pandya during placement of right hip prosthesis. Hard copy s hows femoral and acetabular components in good position. IMPRESSION: RADIATION DOSE DELIVERED: marisol Osman=4.80 mGy
[2022-02-18 13:54] LABS: COVID-19 PCR Negative (Negative)
--- NOTE | 2022-02-18 14:40 | W.ANESPOSTOP ---
Postoperative Evaluation Date, Time and Location Date Performed: 02/18/22 Time Performed: 14:41 Patient Location: PACU Vital Signs Most Recent Imported Vital Signs: Most Recent Vital Signs Temp Pulse Resp BP Pulse Ox 36.4 C L 74 20 149/63 H 97 02/18/22 14:13 02/18/22 14:13 02/18/22 14:13 02/18/22 14:13 02/18/22 14:13 Pain Score Most Recent Pain Score: Most Recent Pain Score Pain Level 3 02/18/22 14:13 Assessment Mental Status: Awake (Alert & Oriented to Patient Baseline) Airway and Respiratory Function: Patent airway with normal (patient baseline) respiratory exam Cardiovascular Function: Hemodynamically Stable Hydration Status: Adequately Hydrated Nausea & Vomiting: No Nausea or Vomiting Pain: Pt. Denies Any Pain Peripheral Nerve Block: Patient did not receive a nerve block Postoperative Comments:: Spinal resolving appropriately
--- NOTE | 2022-02-18 16:55 | PT.INIE ---
Date of service: 02/18/22 Time of Service: 16:55 PT Notes Visit Reasons: Right hip DJD Physical Therapy Inpatient Initial Evaluation Date: 02/18/2022 Referring Doctor: MAGI Luke PT Orders: PT CONSULT: S/P Ortho Surgery Precautions: Fall. Standard. WBAT on R LE with AD. Patient Profile/Admitting Diagnosis: Ananya is an 81-year-old female with degenerative joint disease of the right hip and is status post right total hip arthroplasty on postoperative day 0. PMHX: Medical History?(Updated 02/09/22 @ 13:09 by Anabell Almazan) Alopecia Arthritis Atrophic vaginitis (08/28/14) Congenital ectodermal dysplasia Constipation Contact dermatitis Cystitis Deviated nasal septum Diabetes 2006 Diabetic peripheral neuropathy Dry eye syndrome pt denies Esophagitis Herpes zoster Hyponatremia Microalbuminuric diabetic nephropathy Neck stiffness Osteopenia Sleep apnea Sleeps on side - mild case Venous insufficiency Surgical History?(Updated 02/09/22 @ 13:08 by Anabell Almazan) Hx of cataract surgery Bilateral DOS: 2020Status post tubal ligation (~1982) Total replacement of hip (~2000) Left Social History/Home Situation: Lives alone in a private home with 7 steps to enter heading downstairs, rails on B sides. Indpendent with all aspects of ADLs prior to srugery. Equipment Owned/DME: None Subjective: Agreeable to PT consult. Objective: General Observation: Supine in bed. Ivv access in R UE. TEDS in B LE. Mental Status: Alert and oriented as to person, place, time, and purpose. Able to pay attention, focus, and respond appropriately. Pain: 2-3/10 in R hip and thigh Vital Signs: Vs all WNL. Blood sugar at 290 mg/dL when measured by CLASSIFICATION AND TREATMENT DIRECTOR Ana right before ambulation ROM: Right Lower Extremity: Hip flexion WFL. Hip abduction WFL. Knee flexion WFL. Ankle dorsiflexion WFL. Ankle plantarflexion WFL. Left Lower Extremity: Hip flexion WFL. Hip abduction WFL. Knee flexion WFL. Ankle dorsiflexion WFL. Ankle plantarflexion WFL. Strength: Right Lower Extremity: Hip flexors 4/5. Hip abductors 4/5. Knee flexors 4/5. Knee extensors 4/5. Ankle dorsiflexors 5/5. Ankle plantarflexors 5/5. Left Lower Extremity: Hip flexors 4+/5. Hip abductors 4+/5. Knee flexors 5/5. Knee extensors 5/5. Ankle dorsiflexors 5/5. Ankle plantarflexors 5/5. Sensation: Intact as to pain and light pressure in B LE. Reported numbness in B feet during an earlier attempt by this PT. Bed Mobility/Transfers: Supine to sit stand by assist Sit to stand contact guard assist Stand to sit contact guard assist Bed to bedside contact guard assist Bedside commode to bed contact guard assist Bed to reclining chair contact guard assist Reclining chair to bed contact guard assist Gait: Instructed patient with level surface ambulation of 50 feet requiring contcat guard assist assist. Shavon decreased. No report of increased pain. DEnies headache, chest pain, lightheadedness. Patient had an episode of transient urinary incontinence at start of ambulation activity. CLASSIFICATION AND TREATMENT DIRECTOR Cehryl assisted with patient clean up. Balance: Static Sitting: Normal Dynamic Sitting: Normal Static Standing: Fair Dynamic Standing: Fair Special Tests: Mobility Limitations Standardized Measure [facility] AM-PAC 6 clicks Basic Mobility Inpatient Short Form: Raw Score: 14 CMS Score: 61% deficit Informed Consent/Education: Patient was instructed in purpose of PT consult and plan of care. Agreeable to proceed with established PT POC to achieve personal goals. Assessment: Ananya is an 81-year-old female with degenerative joint disease of the right hip and is status post right total hip arthroplasty on postoperative day 0. Patient presents with clinical signs and symptoms consistent with current/admitting diagnoses that have resulted to mobility limitations, gait instability, generalized weakness, and overall ADL decline as demonstrated by the following impairment level findings: 1. Decreased strength to R hip major muscle groups 2. Impaired sitting/standing balance 3. Impaired activity tolerance Impairments are contributing to the following functional limitations: 1. Decline in bed mobility skills 2. Decline in transfer skills 3. Difficulty with ambulation without assistive device 4. Increased completion time for mobility ADL performance 5. Increased risk for falls 6. Difficulty with managing steps alone safely Patient is assessed as a 54019 moderate complexity based on the following: History: 81-year-old female with past medical history as indicated above Examination: Demonstrable impairment in strength, balance, and mobility level with underlying impairments and functional limitations as exhibited above as well as deficit score of 61% utilizing the [facility] Mobility Inpatient Short Form Presentation: Evolving Decision Makin moderate complexity Goals: Goals X1 week 1. Supine-Sit independent 2. Sit-Supine independent 3. Sit-Stand independent 4. Stand-Sit independent with FWW 5. Bed-Chair independent with FWW 6. Chair-Bed independent with FWW 7. Independent gait on level surface with use of FWW for at least 300 feet without report of pain nor dyspnea 8. Independent stair negotiation while holding onto B rails for at least 10 steps without report of pain nor dyspnea 9. Independent with home exercise program 10. Good static and dynamic standing balance/tolerance Plan of Care/Treatment Plan: 1-2x/day, 7 days/week x 1 week. Plan of care has been reviewed with the RADIO CONTROL CRANE OPERATOR providing the service under Physical Therapy direction. Initiate Physical Therapy intervention for pain management as needed, strengthening, bed mobility, transfers, gait, stairs, balance training, and use of assistive device. DISCHARGE RECOMMENDATIONS: [] Home with no services [] [X] Home with services. Home when medically cleared by orthopedic surgeon. Patient will benefit from home health PT services in order to progress mobility level using least restrictive assistive ambulatory device, assess home safety, identify additional equipment needs, and establish a functional maintenance program that will increase ability of patient to remain at home. [] Home with outpatient PT [] [] SNF for continued rehabilitation [] [] [facility] [] [] SNF versus LTC based on ability to participate and progress [] TREATMENT CODE/TIME: 04420 x 20 minutes, 29279 x 10 minutes beginning at 16:55 PM. Thank you for the opportunity to participate in the care of this patient. Corrine Tay PT, DPT, CLT [facility] [place], [place]
--- NOTE | 2022-02-18 17:37 | ROE_ITS ---
Date of service: 02/18/22 Time of Service: 13:30 Operative Note Operative Note DATE OF PROCEDURE: 02/18/22 PRE-OP DIAGNOSIS: Right Hip Osteoarthritis POST-OP DIAGNOSIS: same PROCEDURE: Right Anterior Total Hip Arthroplasty with Intraoperative Navigation SURGEON: Alejandro Pandya POSTDOCTORAL RESEARCH FELLOW: Teresa Frank ANESTHESIA TYPE: Spinal Refer to Anesthesia Record ESTIMATED BLOOD LOSS: 150 PATHOLOGY: none sent TOURNIQUET TIME: 0 COMPLICATIONS: None Patient was transported to: PACU Patient's condition: stable Implants: 1. Depuy Rough And Ready Acetabular Component, 54mm 2. Depuy Acetabular Liner, [id number] 3. Depuy Corail Standard 125 Degree Collared Femoral Stem, Size 14 4. Depuy Altrx Ceramic Femoral Head, Size 36+5mm Indications: I have seen Ananya in clinic for symptoms of hip arthritis, confirmed with radiographic findings. Ananya has exhausted nonoperative methods and was having significant limitations in daily function and desired better function and less pain. I discussed the technical details of a hip replacement. I explained the risks of the procedure to include, but not limited to, bleeding, infection, pain, stiffness, fracture, damage to nerves and vessels, damage to muscles and tendons, loosening, instability, leg length inequality, need for repeat procedure, blood clot and cardiopulmonary demise. Despite these risks, Ananya elected to proceed. Findings: There was significant signs of arthritis throughout the hip. Large osteophytes are present surrounding the entirety of the femoral head neck junction, femoral neck, and acetabular rim. Procedure Description: Ananya was greeted in the preoperative holding area where the correct side was identified and marked. The consent was reviewed with the patient and signed. The history and physical was updated. All questions were answered. She was taken back to the operating room. A spinal anesthestic was then administered. The feet were wrapped with cast padding and Coban and then placed into the boot liners and then into the boots. Care was taken to protect the skin and make sure the heels were fully down and the boots were stable. The patient was then positioned onto the HANA table. Both legs were held in a neutral position. SCDs were applied. The patient was then slid down onto a peroneal post. Prophylactic antibiotics in the form of Cefazolin were admi nistered. 1g of Tranxemic Acid was given intravenously within 30 minutes of incision. The right leg was then prepped with Chloraprep and draped in a standard fashion. A second prep with Chloraprep was performed prior to placement of a shower-curtain type drape with Iodine impregnated skin protection. A timeout to confirm correct identity, side and site, procedure, allergies, anesthesia, and medical concerns was performed. An obliquely oriented incision was made starting lateral to the ASIS and running distal over the Tensor Fascia Keisha (TFL) muscle belly toward the fibular head, approximately 10cm. The skin and soft tissue was dissected sharply, through Maegan?s fascia, and to the fascia of the TFL. With the fascia and superior border of the IT band identified, the fascia was incised with a new knife just above any perforators from the IT band. The TFL muscle belly was bluntly dissected away from the fascia and moved laterally. The fat between TFL and rectus was identified to ensure the dissection was not within the TFL. Blunt dissection created space between abductors and the capsule and retractor was placed over the lateral femoral neck. The fibers of the rectus femoris tendon were identified and these were freed from the anterior capsule. A second cobra retractor was placed around the medial femoral neck. The TFL was further retracted laterally to show the deep fascia. Careful dissection through this layer identified three main crossing vessels of the lateral femoral circumflex. These were cauterized in multiple locations and then cut without any noticeable bleeding. The TFL was further released bluntly from the deep fascia to expose anterior hip capsule and fat The Wade orthopaedic retractor was then placed beneath the TFL and against sartorius and medial soft tissues to protect and retract the soft tissues. A T-capsulotomy was then performed starting at the superior lateral acetabulum and moving distally to the intertrochanteric ridge. These capsular flaps were tagged with a No. 1 Ethibond and elevated from within. The capsular flaps were released to the shoulder of the lateral neck and to the lesser trochanter to give excellent visualization of the proximal femur. There is significant irregularity of the proximal femur with large osteophytes obstructing normal anatomical view. I used a rongeur to remove majority of these lateral neck osteophytes for better visualization of the trough between the trochanter and the neck as well as the medial aspect of the neck. A neck osteotomy was performed using an oscillating saw based on preoperative templates. This cut started in the shoulder and of the lateral neck and exited medially. The saw was at all times directed medially to avoid injury to the greater trochanter. Gross traction was applied to the leg and the osteotomy opened. The femoral head was removed with a corkscrew, making sure to protect the TFL on its exit. Traction was released after head removal. This was measured on the back table to determine the starting reamer size. Portions of the rectus obscuring visualization were minimally elevated off the superior acetabulum. An anterior retractor was placed over the anterior wall between capsule and labrum and attached to the Gripper retraction system. The femur was rotated to 90 degrees and medial capsule was fully released until the lesser trochanter was palpable and visible; the femur was returned to 30 degrees. A posterior retractor was placed similarly between capsule and labrum. This provided excellent visualization. The contents of the cotyloid fossa were removed with electrocautery and the labrum was removed with a knife. There was a notable floor osteophyte. There was significant chondromalacia of the superior acetabulum. Labrum was calcified and there was large osteophytes about the acetabulum. Acetabular reaming began with a 48mm reamer. This first reaming was directed anterior to posterior and medial to get down to the true floor. This was inspected and reamed until the true floor was reached. The anterior retractor was then released and entry and exit was provided by traction on the capsular flaps. I then reamed sequentially up to a 54mm reamer where good fit was obtained. The larger reamers were oriented based on anatomical reference of the anterior and lateral south to ensure proper abduction and anteversion. Positioning and size was confirmed with the fluoroscopy. A 54mm Depuy Rough And Ready acetabular component was selected. The acetabulum was reamed around the periphery with the selected acetabular size to prevent a rim fit. The deep tissues were irrigated. The acetabular component was then impacted in a position of about 40-45 degrees of abduction and 15-20 degrees of anteversion, using the patient?s anatomy as the ultimate landmark. Fluoroscopy was used to confirm this. There was excellent pharmacist assistant of the acetabular component and the inserting handle was removed. The acetabular liner, Depuy [id number] polyethylene liner, was inserted and lined up with the tines of the acetabular component. There was no soft tissue interposition. The liner was then impacted into position and confirmed to be well-seated. A portion of the shailesh-articular cocktail was then injected around the acetabulum into the capsule and periosteum. This cocktail consisted of 123mg of Ropivacaine, 0.25mg of Epinephrine, 0.04mg of Clonidine, and 15mg of Ketorolac, diluted to 50cc. The leg was rotated to 120 degrees. Any remaining medial capsule was released until the lesser trochanter was easily palpable. A retractor was placed medially. The lateral capsule was further released into the shoulder to allow access to the greater trochanter. A Vidales retractor was placed over the greater trochanter which allowed the trochanter to flip in front of the capsule for excellent exposure. The leg was brought down into maximal extension and 20 degrees of adduction while ensuring there was no impingement on the acetabulum. Any remnant capsule within the trochanter was released. Piriformis and obturator externis were identified and protected. There was excellent access to the proximal femur. The lateral neck remnant was removed with a rongeur. A blunt canal probe was used to identify the canal and trajectory for later broaching. A box osteotome initiated the broach course. A small curved rasp and a curved curette were used to work laterally. Broaching then began with a size 8 Corail broach. This was inserted manually around the trochanter and into the canal before mallet blows. The broach was seated to a few millimeters below the cut level based on the neck cut and the preoperative template. Sequential broaching was continued with the TriVascularcise pneumatic broaching device until a tight fit was obtained with good rotational control of the femur. A trial standard neck was inserted along with a +5 trial head. The leg was brought out of extension and adduction and then reduced with t raction and internal rotation. The leg was stable anteriorly in a position of 30 degrees of extension and 90 degrees of external rotation. Fluoroscopy was used to ensure there was no fracture and the stem was seated well. Leg lengths were checked with an AP pelvis and pelvic reference points. Lumicell navigation system was used to confirm appropriate positioning and leg length and offset. This over-corrected the leg length discrepency but was accurate with offset so I went with a 125 degree neck. Once content with the desired offset and leg lengths, the leg was brought back into extension, external rotation and adduction. The periosteum and surrounding tissue was injected with remaining portion of the shaliesh-articular cocktail. The proximal femur was irrigated as well as the deep tissues. The Depuy Corail standard 125 degree collared stem, size 14, was then manually inserted into the proximal femur making sure to control rotation. It was then malleted into position with light blows, giving breaks to allow bone expansion and decrease risk of fracture. The selected Depuy Altrx Ceramic Head, size 36+5mm, was then placed onto the clean and dry trunnion and secured with impaction onto the tapered fit. The leg was brought back out of extension and adduction and reduced with traction and internal rotation. Stability was confirmed with no shuck at 90 degrees of external rotation and 30 degrees of extension. No impingement through range of motion arc. Final x-ray images were obtained with fluoroscopy to confirm adequate positioning and no intraoperative fracture. The deep tissues were thoroughly irrigated with Surgiphor, betadine solution. This was allowed to sit in the wound for 3 minutes before being thoroughly irrigated out with normal saline. The capsule was then reapproximated with the previously placed Ethibond sutures. The TFL fascia was finally closed with a No. 2 Stratafix, barbed suture. Deep tissues were then reapproximated with 0 Vicryl and a running 2-0 Vicryl. The skin was closed with a running 4-0 Monocryl in a subcuticular fashion. This was reinforced with skin glue. A Mepilex silver dressing was applied. At the end of the case, all counts were correct. Ananya was transferred to the hospital bed without difficulty and suffering no apparent complication. Ananya has a good prognosis. Physical therapy will start today and without restrictions, weight-bearing as tolerated. Aspirin 81mg BID will be used for DVT prophylaxis.
[2022-02-18] MEDS: metFORMIN 500 MG TAB PO (17:45)
[2022-02-18] MEDS: ceFAZolin 1 GM/50 ML BAG IVPB (20:31)
[2022-02-18] MEDS: Celecoxib 200 MG CAP PO (20:32)
[2022-02-18] MEDS: Aspirin E.C. 81 MG TABEC PO (20:32)
[2022-02-18] MEDS: oxyCODONE 5 MG TAB PO (21:21)
[2022-02-18] MEDS: Insulin Glargine 300 UNITS/3 ML PEN 12 UNITS SC (21:22)
[2022-02-19 03:26] VITALS: BP 117/66; PULSE 60; RESP 18; TEMP 36.3; O2SAT 94
[2022-02-19] MEDS: Normal Saline Flush 10 ML SYR IV (03:34)
[2022-02-19] MEDS: ceFAZolin 1 GM/50 ML BAG IVPB (03:35)
[2022-02-19 07:52] VITALS: BP 110/70; PULSE 63; RESP 17; TEMP 36.1; O2SAT 97
[2022-02-19] MEDS: Celecoxib 200 MG CAP PO (08:43)
[2022-02-19] MEDS: Pantoprazole 40 MG TABCR PO (08:43)
[2022-02-19] MEDS: Lisinopril 20 MG TAB 40 MG PO (08:43)
[2022-02-19] MEDS: Acetaminophen 500 MG TAB 1000 MG PO (08:43)
[2022-02-19] MEDS: metFORMIN 500 MG TAB 1000 MG PO (08:43)
[2022-02-19] MEDS: Aspirin E.C. 81 MG TABEC PO (08:43)
[2022-02-19] MEDS: amLODIPine 5 MG TAB 2.5 MG PO (08:43)
--- NOTE | 2022-02-19 13:19 | PT.INTREAT ---
Date of service: 02/19/22 Time of Service: 09:53 PT Notes Visit Reasons: Right hip DJD Inpatient Physical Therapy Treatment Note [facility] Date: 02/19/2022 PRECAUTIONS: WBAT R, activity as tolerated SUBJECTIVE: Ananya is pleasant and agreeable to participating in PT. She reports that she is feeling good today, and looking forward to going home. She reports that she has lined up help at home for a while. OBJECTIVE: PAIN: No c/o pain BED MOBILITY/TRANSFERS Sit-stand: I Stand-sit: I Bed-Chair: I Chair-bed: I GAIT Assistive Device: FWW Weight bearing: WBAT R Assist: S Distance: 150' Deviation: Antalgic gait, instruction in step-through gait pattern, assist for continuous FWW advancement STAIRS: Up/down 3x4 and 2x6 using U rail/SPC and a step-to pattern with supervision ASSESSMENT: Patient tolerated session well without complaint of pain. She demonstrates independence with sit<>stand transfers. She requires assist for continuous FWW advancement as well as cueing for step-through gait pattern. PLAN: Patient to discharge to home later today, per provider. TREATMENT CODE/TIME: 27 minutes; 89915 x2 (09:53)
--- NOTE | 2022-02-19 18:20 | PT.INDS ---
Date of service: 02/24/22 Time of Service: 16:55 PT Notes Visit Reasons: Right hip DJD Physical Therapy Discharge Summary Date: 02/19/2022 Dates of Service: 02/18/2022 through 02/19/2022 This is a clinical summary of care provided for the duration of dates listed above. No charge was made in the completion of this documentation. Referring Doctor:? MAGI Luke PT Orders: PT CONSULT: S/P Ortho Surgery Precautions: Fall. Standard. WBAT on R LE with AD. Patient Profile/Admitting Diagnosis:? Ananya is an 81-year-old female with degenerative joint disease of the right hip and is status post right total hip arthroplasty on postoperative day 0. PMHX: Medical History?(Updated 02/09/22 @ 13:09 by Anabell Almazan) Alopecia Arthritis Atrophic vaginitis (08/28/14) Congenital ectodermal dysplasia Constipation Contact dermatitis Cystitis Deviated nasal septum Diabetes 2006 Diabetic peripheral neuropathy Dry eye syndrome pt denies Esophagitis Herpes zoster Hyponatremia Microalbuminuric diabetic nephropathy Neck stiffness Osteopenia Sleep apnea Sleeps on side - mild case Venous insufficiency Surgical History?(Updated 02/09/22 @ 13:08 by Anabell Almazan) Hx of cataract surgery Bilateral DOS: 2020Status post tubal ligation (~1982) Total replacement of hip (~2000) Left Social History/Home Situation: Lives alone in a private home with 7 steps to enter heading downstairs, rails on B sides.? Indpendent with all aspects of ADLs prior to srugery. Equipment Owned/DME: None Subjective: NT. See most recent [facility]OR OF REHABILITATIVE SERVICES notes. Objective: General Observation: NT. See most recent [facility] REHAB[facility]ITATIVE SERVICES notes. Mental Status: NT. See most recent [facility] REHAB[facility]ITATIVE [employer] notes. Pain: NT. See most recent [facility] REHABILITATIVE SERVICES notes. Vital Signs: NT. See most recent [facility] OF REHAB[employer]ITATIVE SERVICES notes. ROM: Right Lower Extremity: Hip flexion WFL. Hip abduction WFL. Knee flexion WFL. Ankle dorsiflexion WFL. Ankle plantarflexion WFL. Left Lower Extremity: Hip flexion WFL. Hip abduction WFL. Knee flexion WFL. Ankle dorsiflexion WFL. Ankle plantarflexion WFL. Strength: Right Lower Extremity: Hip flexors 4/5. Hip abductors 4/5. Knee flexors 4/5. Knee extensors 4/5. Ankle dorsiflexors 5/5. Ankle plantarflexors 5/5. Left Lower Extremity: Hip flexors 4+/5. Hip abductors 4+/5. Knee flexors 5/5. Knee extensors 5/5. Ankle dorsiflexors 5/5. Ankle plantarflexors 5/5. Sensation:? Intact as to pain and light pressure in B LE. Reported numbness in B feet during an earlier attempt by this PT.? BED MOBILITY/TRANSFERS? Sit-stand: I? Stand-sit: I ? Bed-Chair: I ? Chair-bed: I ? GAIT? Assistive Device: FWW? Weight bearing: WBAT R Assist: S ? Distance:? 150' ? Deviation: Antalgic gait, instruction in step-through gait pattern, assist for continuous FWW advancement ? STAIRS: Up/down 3x4 and 2x6 using U rail/SPC and a step-to pattern with supervision ? Balance: Static Sitting: Normal Dynamic Sitting: Normal Static Standing: Fair Dynamic Standing: Fair Assessment: Ananya is an 81-year-old female with degenerative joint disease of the right hip and is status post right total hip arthroplasty on postoperative day 0.? Patient presents with clinical signs and symptoms consistent with current/admitting diagnoses that have resulted to mobility limitations, gait instability, generalized weakness, and overall ADL decline as demonstrated by the following impairment level findings: 1.? Decreased strength to R hip major muscle groups 2.? Impaired sitting/standing balance 3.? Impaired activity tolerance Impairments are contributing to the following functional limitations: 1.? Decline in bed mobility skills 2.? Decline in transfer skills 3.? Difficulty with ambulation without assistive device 4.? Increased completion time for mobility ADL performance 5.? Increased risk for falls 6.? Difficulty with managing steps alone safely Goals: Goals X1 week 1. Supine-Sit independent MET 2. Sit-Supine independent MET 3. Sit-Stand independent MET 4. Stand-Sit independent with FWW MET 5. Bed-Chair independent with FWW MET 6. Chair-Bed independent with FWW MET 7. Independent gait on level surface with use of FWW for at least 300 feet without report of pain nor dyspnea NOT MET 8. Independent stair negotiation while holding onto B rails for at least 10 steps without report of pain nor dyspnea NOT MET 9. Independent with home exercise program NOT MET 10. Good static and dynamic standing balance/tolerance NOT MET DISCHARGE RECOMMENDATIONS: [] ? Home with no services [] [X] ? Home with services. Home when medically cleared by orthopedic surgeon.? Patient will benefit from home health PT services in order to progress mobility level using least restrictive assistive ambulatory device, assess home safety, identify additional equipment needs, and establish a functional maintenance program that will increase ability of patient to remain at home. [] ? Home with outpatient PT [] [] ? SNF for continued rehabilitation [] [] ? [facility] [] [] ? SNF versus LTC based on ability to participate and progress [] TREATMENT CODE/TIME: NC Thank you for the opportunity to participate in the care of this patient. Corrine Tay PT, DPT, CLT [facility] [place], [place]
== END 2022-02-19 10:28 | disposition home health service (06) ==
LOC: SUR 15:16 → MS 15:17
PROVIDERS: Admitting Provider Student in an Organized Health Care Education/Training Program; PCP Family Medicine; Visit Provider Student in an Organized Health Care Education/Training Program
PROC: 0SR904A Replacement of Right Hip Joint with Ceramic on Polyethylene Synthetic Substitute, Uncemented, Open Approach (ICD-10-PCS; CPT 27130; principal; 2022-02-18 12:00)
DX: M16.11 Unilateral primary osteoarthritis, right hip (principal); Z20.822 Contact with and (suspected) exposure to COVID-19; I10 Essential (primary) hypertension; E11.42 Type 2 diabetes mellitus with diabetic polyneuropathy; E11.21 Type 2 diabetes mellitus with diabetic nephropathy; E04.1 Nontoxic single thyroid nodule; K59.00 Constipation, unspecified; I87.8 Other specified disorders of veins; Z96.642 Presence of left artificial hip joint
CPT/HCPCS: 20985; 27130; C1776; 87635; 97162; 97530; 73501; J0690; J1100; J2370; J2405; J3010

== ENCOUNTER 2022-03-05 11:27 | Outpatient (CLI) | payer MEDICARE, MEDICAID, SELFPAY ==
--- NOTE | 2022-03-05 11:15 | DI.RAD_ITS ---
Exam(s) XR HIP RT COMPLETE AP PELVIS EXAM: XR HIP RT COMPLETE AP PELVIS CLINICAL HISTORY: R THR. TECHNIQUE: 2D digital imaging was performed. Two images were obtained. AP, lateral and oblique view s were obtained. COMPARISON: CR XR HIP RT COMPLETE AP PELVIS from 09/15/2021 CR XR PELVIS AP from 02/09/2022 XA XR HIP RT IN OR from 02/18/2022 FINDINGS: BONES: There are stable post operative changes present. No fracture or dislocation. There are bilate ral total hip arthroplasties. JOINTS: The orthopedic hardware is in good position. No evidence of hardware loosening. SOFT TISSUE: Atherosclerosis is present. IMPRESSION: Stable postoperative changes. DATA REPOSITORY: RADIATION DOSE DELIVERED:
== END 2022-03-05 11:28 | disposition home or self-care (01) ==
LOC: DIORS 11:28
PROVIDERS: PCP Family Medicine; Referring Provider Family Medicine; Visit Provider Physician Assistant
DX: Z96.641 Presence of right artificial hip joint (principal); Z47.1 Aftercare following joint replacement surgery
CPT/HCPCS: 73502

== ENCOUNTER → 2022-03-10 02:42 | Outpatient (CLI) | payer MEDICARE, MEDICAID, SELFPAY ==
--- NOTE | 2022-03-10 07:15 | DI.US_ITS ---
Exam(s) US THYROID EXAM: US THYROID CLINICAL HISTORY: TR 4 1.7 cm nodule, assess for change,e04.1. TECHNIQUE: Ultrasound thyroid performed using standard protocol. COMPARISON: US US THYROID from 09/24/2021 FINDINGS: Both thyroid lobes again exhibit upper normal size. Previously described small benign-appearing sub cm nodules in the left thyroid lobe are again noted stable. In the right lobe there is some normal tissue again noted in the superior aspect but the remainder of the right lobe is again noted to be occupied by a large heterogeneous nodule which is both solid and cystic but predominately solid. It measures approximately 3.3 cm craniocaudal by 1.8 cm wide by 1.8 cm AP, similar to the previous exam. Size: Measures 3.3 x 0.8x 1.8 cm Composition: Mixed solid-cystic but predominantly solid-2 points Echogenicity: Solid components are hypoechoic compared to surrounding parenchyma-2 points. Shape: Width and AP dimensions are equal in the transverse plane-0 points Margin: Relatively [id number]-[id number]-3 points Echogenic Foci: Contains a macro calcification-1 point Total Points for this nodule: 5 ACR Ti-Rads Category: TR 4 LYMPH NODES: There is no significant adenopathy. IMPRESSION: 1. Minimal if any significant change in the appearance of the complex heterogeneous nodule occupying 2/3 of the right thyroid lobe. This is a TR 4 nodule. Ultrasound-guided FNA recommended as it measures greater than 1.5 cm DATA REPOSITORY:
== END ==
PROVIDERS: PCP Family Medicine; Visit Provider Otolaryngology
DX: E04.1 Nontoxic single thyroid nodule (principal)
CPT/HCPCS: 76536

== ENCOUNTER → 2022-04-06 14:34 | Outpatient (BNVA) | payer MEDICARE, MEDICAID, SELFPAY | PROVIDERS: PCP Family Medicine; Referring Provider Family Medicine; Visit Provider Student in an Organized Health Care Education/Training Program | DX: Z47.1 Aftercare following joint replacement surgery (principal); Z96.641 Presence of right artificial hip joint ==

== ENCOUNTER 2022-04-06 16:55 | Outpatient (REF) | payer MEDICARE, MEDICAID, SELFPAY ==
[2022-04-06 21:06] LABS: Abs Immature Grans 0.01 10^3/uL (0.0-0.06); Absolute Basophil Count 0.04 10^3/uL (0.0-0.2); Absolute Eosinophil Count 0.24 10^3/uL (0.0-0.7); Absolute Lymphocyte Count 2.43 10^3/uL (1.2-3.4); Absolute Monocyte Count 0.83 10^3/uL (0.1-0.8); Absolute Neutrophil Count 4.27 10^3/uL (1.2-6.7); Basophils % 0.5; Eosinophils % 3.1; HCT 35.6 % (36.0-46.0); HGB 11.5 g/dL (11.2-15.7); Immature Grans % 0.1; Lymphocytes % 31.1; MCH 28.4 pg (27.0-33.0); MCHC 32.3 % (32.0-36.0); MCV 88 fL (80-95); MPV 10.5 fL (8.0-11.0); Monocytes % 10.6; Neutrophils % 54.6; Platelet Count 319 10^3/uL (130-400); RBC 4.05 10^6/uL (3.93-5.22); RDW 12.2 % (11.7-14.6); RDW-SD 39.6 fL; WBC 7.82 10^3/uL (4.4-10.8)
== END 2022-04-06 16:56 | disposition home or self-care (01) ==
LOC: LBN 16:55
PROVIDERS: PCP Family Medicine; Visit Provider Nurse Practitioner Family
DX: R00.0 Tachycardia, unspecified (principal); D50.0 Iron deficiency anemia secondary to blood loss (chronic)
CPT/HCPCS: 85025

== ENCOUNTER 2022-04-09 11:25 | Outpatient (CLI) | payer MEDICARE, MEDICAID, SELFPAY | END 2022-04-09 11:26 | disposition home or self-care (01) | LOC: CARDOPNVT 11:25 | PROVIDERS: PCP Family Medicine; Visit Provider Nurse Practitioner Family | DX: R00.0 Tachycardia, unspecified (principal) | CPT/HCPCS: 93270 ==

== ENCOUNTER 2022-04-17 13:13 | Outpatient (CLI) | payer MEDICARE, MEDICAID, SELFPAY ==
--- NOTE | 2022-04-17 13:21 | W.CARDEVENT ---
Date of service: 04/17/22 Time of Service: 13:21 Cardiac Event Recorder Referring Provider:: Herlinda Grajeda Indications:: Tachycardia Cardiac Event Note: This is a cardiac event monitor that was ordered for tachycardia Patient was only monitored for 4 days due to inability to tolerate the adhesive used for monitoring Rhythm was sinus with an average heart rate of 78. Minimum was 56, maximum 127 No atrial fibrillation, SVT, high-grade AV block, or pauses were recorded Patient symptoms were reported and appeared to correspond to sinus tachycardia rate approximately 125
== END 2022-04-17 13:14 | disposition home or self-care (01) ==
LOC: CARDOPNVT 13:13
PROVIDERS: PCP Family Medicine; Visit Provider Internal Medicine Cardiovascular Disease
DX: R00.0 Tachycardia, unspecified (principal)
CPT/HCPCS: 93272

== ENCOUNTER 2022-08-10 13:09 | Outpatient (REF) | payer MEDICARE, MEDICAID, SELFPAY ==
[2022-08-10 15:22] LABS: HCT 37.8 % (36.0-46.0); HGB 12.5 g/dL (11.2-15.7); MCH 28.5 pg (27.0-33.0); MCHC 33.1 % (32.0-36.0); MCV 86 fL (80-95); MPV 10.8 fL (8.0-11.0); Platelet Count 255 10^3/uL (130-400); RBC 4.39 10^6/uL (3.93-5.22); RDW 12.9 % (11.7-14.6); RDW-SD 40.7 fL; WBC 5.89 10^3/uL (4.4-10.8)
[2022-08-10 15:48] LABS: Iron 97 ug/dL (50-170); Total Iron Binding Capacity 358 ug/dL (250-450); Transferrin Sat 27 % (15-50)
[2022-08-10 16:08] LABS: Calculated LDL 115 mg/dL (<100); Cholesterol 214 mg/dL (<200); Ferritin 42 ng/mL (8-252); HDL Cholesterol 62 mg/dL (40-60); Triglyceride 188 mg/dL (<150); Vitamin B12 246 pg/mL (193-986)
== END 2022-08-10 13:10 | disposition home or self-care (01) ==
LOC: NCHCN 13:09
PROVIDERS: PCP Family Medicine; Visit Provider Family Medicine
DX: D50.0 Iron deficiency anemia secondary to blood loss (chronic) (principal); E11.40 Type 2 diabetes mellitus with diabetic neuropathy, unspecified; I67.89 Other cerebrovascular disease; Z86.39 Personal history of other endocrine, nutritional and metabolic disease
CPT/HCPCS: 80061; 85027; 82607; 82728; 83540; 83550

== ENCOUNTER 2022-10-08 07:25 | Emergency (ER) | payer MEDICARE, MEDICAID, SELFPAY ==
[2022-10-08 07:28] VITALS: BP 179/64; PULSE 98; TEMP 37.1; O2SAT 98
[2022-10-08 08:47] LABS: COVID-19 PCR Negative (Negative); Influenza A PCR Negative (Negative); Influenza B PCR Negative (Negative); RSV PCR Negative (Negative)
[2022-10-08 08:48] LABS: Source Nasopharynx
--- NOTE | 2022-10-08 08:52 | W.ED.GENAD ---
Discharge Plan Disposition Patient Disposition: Home Condition: Stable Discharge Details Clinical Impression: Acute pharyngitis, URI, acute Primary Care Provider: [facility] ED Provider: Kunal Mario Home Meds and New Rx's Prescriptions: New benzonatate 100 mg capsule 100 mg PO BID PRNQty: 14 0RF Continued Algal [place]-3 DHA 200 mg capsule 200 mg PO DAILY aspirin 81 mg tablet,delayed release (DR/EC) 81 mg PO DAILY coenzyme Q10 [Co Q-10] 100 mg capsule 100 mg PO DAILY collagen PO metformin 500 MG tablet 1,000 mg PO BID lisinopril 20 MG tablet 40 mg PO DAILY vitamin B complex 1 EACH tablet 1 ea PO DAILY garlic 1 EACH tablet 1 ea PO DAILY cholecalciferol (vitamin D3) 2,000 UNIT tablet 5,000 unit PO DAILY Patient Comments: Reports taking 5000 units not 6000 units as listed chromium amino acid chelate 400 MCG tablet 200 mcg PO DAILY essiac tea capsule 125 mg PO DAILY magnesium 100 mg tablet 125 mg PO BID insulin glargine [Lantus Solostar U-100 Insulin] 100 unit/mL (3 mL) insulin pen 12 unit SUBCUT HS Patient Comments: 6 units alpha lipoic acid 200 MG tablet 200 mg PO DAILY Patient Comments: cranberry extract 500 mg Capsule 500 mg PO DAILY acetaminophen 500 mg tablet 1,000 mg PO Q8H PRN (Reason: pain) Qty: 90 3RF amlodipine 2.5 mg tablet 2.5 mg PO DAILY Patient Comments: TAKE ONE TABLET BY MOUTH EVERY DAY FOR BLOOD PRESSURE Discharge Instructions Instructions: Pharyngitis (ED), Upper Respiratory Infection (ED) Additional Instructions: Your swabs for COVID/FLU/RSV and the rapid strep test were all negative. A culture was sent for strep, and if it is positive someone will contact you. Discharge Data Discharge Date/Time-TO BE ENTERED AT DEPARTURE: 10/08/22 09:18 HPI General Date/Time Provider Initiated Documentation: 10/08/22 07:32. HPI Narrative: 81 year old female presents to the ED with c/o sore throat and intermittent cough for the past week. She says that her brother had similar sx's and gave it to her. She denies any fever/chills. She took a home covid test and was neg yesterday. No cp. NO abd pain, no n/v/d. Related Data Home Medications Medication Instructions Recorded Confirmed Essiac Tea 125 mg PO DAILY 12/28/13 04/06/22 cholecalciferol (vitamin D3) 50 5,000 unit PO DAILY 12/28/13 04/06/22 mcg (2,000 unit) tablet chromium amino acid chelate 400 200 mcg PO DAILY 12/28/13 04/06/22 mcg tablet garlic 1 ea PO DAILY 12/28/13 04/06/22 lisinopril 20 mg tablet 40 mg PO DAILY 12/28/13 04/06/22 metformin 500 mg tablet 1,000 mg PO BID 12/28/13 04/06/22 vitamin B complex 1 ea PO DAILY 12/28/13 04/06/22 alpha lipoic acid 200 mg tablet 200 mg PO DAILY 01/17/16 04/06/22 cranberry extract 500 mg capsule 500 mg PO DAILY 06/13/20 04/06/22 amlodipine 2.5 mg tablet 2.5 mg PO DAILY 09/18/20 04/06/22 docosahexaenoic acid 200 mg 200 mg PO DAILY 10/02/21 04/06/22 capsule (Algal [place]-3 DHA) insulin glargine 100 unit/mL (3 12 unit subcut HS 11/26/21 04/06/22 mL) subcutaneous pen (Lantus Solostar U-100 Insulin) magnesium 100 mg tablet 125 mg PO BID 11/26/21 04/06/22 collagen PO 02/09/22 04/06/22 acetaminophen 500 mg tablet 1,000 mg PO Q8H PRN pain #90 tabs 02/19/22 04/06/22 aspirin 81 mg tablet,delayed 81 mg PO DAILY 04/06/22 04/06/22 release coenzyme Q10 100 mg capsule (Co 100 mg PO DAILY 04/06/22 04/06/22 Q-10) benzonatate 100 mg capsule 100 mg PO BID PRN #14 caps 10/08/22 Previous Rx's Medication Instructions Recorded acetaminophen 500 mg tablet 1,000 mg PO Q8H PRN pain #90 tabs 02/19/22 benzonatate 100 mg capsule 100 mg PO BID PRN #14 caps 10/08/22 Allergies Allergy/AdvReac Type Severity Reaction Status Date / Time Penicillins Allergy Severe Other (See Verified 06/01/23 07:32 Comment) saxagliptin HCl Allergy Severe Other (See Verified 10/08/22 07:32 [From Onglyza] Comment) adhesive Allergy Intermediate Skin Rash Verified 10/08/22 07:32 prednisone AdvReac Unknown Verified 10/08/22 07:32 General Stated Complaint: Sorethroat EVA: 4 Review of Systems Narrative: neg fever/chills +ST neg cp, neg sob, +cough. PFSH All Active Problems (Updated 10/08/22 @ 09:06 by Kunal Mario MD) Acute pharyngitis (Acute) URI, acute (Acute) History of total right hip replacement (Acute 02/18/22) Impacted cerumen, bilateral (Acute) Insect bite (Acute) Tick bite (Acute) Sensorineural hearing loss of both ears (Acute) TIA (transient ischemic attack) (Acute) Type 2 diabetes mellitus (Chronic) Thyroid nodule (Acute) Thyroid nodule greater than or equal to 1.5 cm in diameter incidentally noted on imaging study (Acute) Hypertension (Chronic) Medical History Alopecia Arthritis Atrophic vaginitis (08/28/14) Congenital ectodermal dysplasia Constipation Contact dermatitis Cystitis Deviated nasal septum Diabetes 2006 Diabetic peripheral neuropathy Dry eye syndrome pt sb Esophagitis Herpes zoster Hyponatremia Microalbuminuric diabetic nephropathy Neck stiffness Osteopenia Sleep apnea Sleeps on side - mild case Venous insufficiency Surgical History Hx of cataract surgery Bilateral DOS: 2020 Status post tubal ligation (~1982) Total replacement of hip (~2000) Left Family History Son Diabetes COVID-19 Daughter History of diabetes mellitus Daughter History of diabetes mellitus Daughter History of diabetes mellitus Brother Brain tumor Brother Stroke Brother Bladder cancer Social History Smoking/Tobacco Use Status: Never Smoking risk assessment performed?: Yes Alcohol Intake: never Drug use: Never Substance use type: does not use Number of Children: 4 Pets and animals: No Current gender identity: female Do you feel safe at home: Yes Do you feel safe in your relationship?: Yes Exam Const General: healthy appearing, comfortable and no acute distress HENMT Ears: other (hearing aids b/l) Mouth: oral mucosae normal Throat: other (mild erythema posterior oropharynx) Neck Neck: no lymphadenopathy Resp Auscultation: clear to auscultation bilaterally Cardio Rate: regular rate Rhythm: regular rhythm Course [address] and cough, neg home covid test. Testing for covid/flu/rsv all neg here, and rapid strep neg as well, reflex to cx. Will try some viscous lidocaine here for comfort, symptomatic control at home waiting for cx result. Vital Signs Vital signs: Vital Signs Temperature 37.1 C 10/08/22 07:28 Pulse 98 H 10/08/22 07:28 Blood Pressure 179/64 H 10/08/22 07:28 Pulse Oximetry 98 10/08/22 07:28 Temperature 37.1 C 10/08/22 07:28 Temperature Source Skin 10/08/22 07:28 Pulse 98 H 10/08/22 07:28 Blood Pressure 179/64 H 10/08/22 07:28 Blood Pressure Position Sitting 10/08/22 07:28 Pulse Oximetry 98 10/08/22 07:28 Oxygen Delivery Method Room Air 10/08/22 07:28 Oxygen Flow Rate 0 10/08/22 07:28 Pain Level 8 10/08/22 07:28 Comment is taking natural stuff to help with symptoms 10/08/22 07:28 Lab/Test Results Lab/Test Results: 10/08/22 07:46 Tonsil - Not Specified Group A Streptococcus Culture - Pending Laboratory Tests Range/Units 10/08/22 07:46 COVID-19 Source Nasopharynx SARS-CoV-2 (PCR) (Negative) Negative Influenza Type A (PCR) (Negative) Negative Influenza Type B (PCR) (Negative) Negative RSV (PCR) (Negative) Negative POC Strep Test-[facility](Rapid) Start: 10/08/22 07:47 Freq: Status: Active Protocol: Document 10/08/22 07:57 DARREL (Rec: 10/08/22 07:57 DARREL [id number]) Strep test-[facility](Rapid)-POC POC-Strep test-[facility] (Rapid) Negative POC-Strep test-[facility] (Rapid) Negative
== END 2022-10-08 09:18 | disposition home or self-care (01) ==
PROVIDERS: Student in an Organized Health Care Education/Training Program; Emergency Provider Emergency Medicine; PCP Family Medicine
DX: J02.9 Acute pharyngitis, unspecified (principal); R05.9 Cough, unspecified; R51.9 Headache, unspecified; J06.9 Acute upper respiratory infection, unspecified
CPT/HCPCS: 87637; 87880; 99283; 87081

== ENCOUNTER 2023-02-10 11:45 | Outpatient (REF) | payer MEDICARE, MEDICAID, SELFPAY ==
[2023-02-10 15:18] LABS: PTT Activated 27.9 sec (21.5-31.9); Prothrombin Time 10.4 sec (9.3-11.0)
[2023-02-10 16:01] LABS: Abs Immature Grans 0.02 10^3/uL (0.0-0.06); Absolute Basophil Count 0.05 10^3/uL (0.0-0.2); Absolute Lymphocyte Count 2.37 10^3/uL (1.2-3.4); Absolute Monocyte Count 0.75 10^3/uL (0.1-0.8); Absolute Neutrophil Count 4.23 10^3/uL (1.2-6.7); Basophils % 0.7; Eosinophils % 2.6; HCT 38.5 % (36.0-46.0); HGB 12.4 g/dL (11.2-15.7); Immature Grans % 0.3; Lymphocytes % 31.1; MCH 28.2 pg (27.0-33.0); MCHC 32.2 % (32.0-36.0); MCV 88 fL (80-95); MPV 11.2 fL (8.0-11.0); Monocytes % 9.8; Neutrophils % 55.5; Platelet Count 253 10^3/uL (130-400); RBC 4.39 10^6/uL (3.93-5.22); RDW 12.9 % (11.7-14.6); RDW-SD 41.1 fL; WBC 7.62 10^3/uL (4.4-10.8)
[2023-02-10 16:13] LABS: C-Reactive Protein 0.26 mg/dL (0.0-0.3)
== END 2023-02-10 11:46 | disposition home or self-care (01) ==
LOC: NCHCN 11:45
PROVIDERS: PCP Family Medicine; Visit Provider Family Medicine
DX: G45.9 Transient cerebral ischemic attack, unspecified (principal)
CPT/HCPCS: 85025; 85610; 85730; 86140

== ENCOUNTER → 2023-02-10 12:32 | Outpatient (CLI) | payer MEDICARE, MEDICAID, SELFPAY ==
--- NOTE | 2023-02-10 | DI.MRI_ITS ---
Exam(s) MR ANGIO NECK WO CLINICAL HISTORY: TRANSIENT ISCHEMIC ATTACK G45.9. TECHNIQUE: Performed on 1.5 dick unit with [id number] sequence CONTRAST MATERIAL: None COMPARISON: None. FINDINGS: Aortic arch anatomy appears conventional. The visualized common carotid arteries are patent. There is no evidence of significant stenosis at the carotid bifurcations/carotid bulbs and proximal interna l carotid arteries. In the upper neck the internal carotid arteries are also demonstrated to be romo nt. Posterior circulation: Vertebral arteries originate off of the subclavian arteries and ascend with normal and equal luminal diameters in the foramen transverse area. There is no evidence of intraluminal thrombus nor dissecti on of the vertebral arteries. At the skull base both vertebral arteries contribute to the formation of the basilar artery. IMPRESSION: 1. Patent carotid arteries in the neck without evidence of hemodynamically significant stenosis. 2. Patent vertebral arteries in the neck. DATA REPOSITORY:
--- NOTE | 2023-02-10 | DI.MRI_ITS ---
Exam(s) MR ANGIO BRAIN WO MR BRAIN WO EXAM: MR ANGIO BRAIN WO AND MRI BRAIN WO CLINICAL HISTORY: TRANSIENT ISCHEMIC ATTACK G45.9 TECHNIQUE: Multiplanar multisequence MRI of the brain was performed. Also performed BRAIN MRA time- of-flight sequence COMPARISON: MR MR BRAIN WO from 02/10/2023 FINDINGS: MRI BRAIN WO: CEREBRAL PARENCHYMA: No evidence of intracranial hemorrhage, mass effect nor shift of midline structu re. No extraaxial fluid collections. Ventricles are not enlarged nor shifted. There is no significant focal signal abnormality in the cerebellar hemispheres. There is mild signal abnormality in left side of the beth and there are multiple flair bright foci of signal abnormality in the shailesh in supra ventricular white matter which are not associated with hemorrhage nor surroundin g edema nor restricted diffusion on DWI. These are consistent with chronic small-vessel white matter ischemic changes. DWI: No areas of restricted diffusion to suggest acute ischemic event. SWI: No microhemorrhages evident. PITUITARY GLAND: No mass nor parasellar abnormality. No obvious abnormality in the cavernous sinuses. FLOW VOIDS: The expected flow void are noted. No evidence of obvious aneurysm nor obvious vascular ma lformation. PARANASAL SINUSES: The visualized paranasal sinuses appear unremarkable. ORBITS: No obvious abnormal findings. MRA BRAIN: Anterior circulation: Both internal carotid arteries are patent in the skull base-carotid canals as well as within the cave rnous sinuses. Supraclinoid aspects of the ICAs are patent and nonaneurysmal.. Both A1 segments are patent as are the anterior cerebral arteries and there is no evidence of aneurysm at the level of th e anterior communicating artery. Both middle cerebral arteries are patent without significant stenosis nor obvious intraluminal thromb us. No aneurysm seen in these vessels. Posterior circulation: The basilar artery formed at the skull base by both vertebral arteries. Basilar artery ascends in th e midline normal luminal diameter. Distally it gives off superior cerebellar arteries. Above this l evel it terminates as patent posterior cerebral arteries. There is a posterior communicating artery on the right side of the [id number]. There is no aneurysm at the level of the tip of the basil ar artery nor elsewhere in the [id number]. IMPRESSION: 1. No significant acute intracranial findings on this MRI scan of the brain. There are multiple foci of periventricular signal abnormality consistent with chronic small vessel disease. These do not ex hibit evidence of hemorrhage, surrounding edema nor restricted diffusion on DWI to suggest acute isch emic event. 2. Magnetic resonance angiography reveals patent intracranial arteries and no aneurysms. No obvious vascular malformation. DATA REPOSITORY:
== END ==
PROVIDERS: PCP Family Medicine; Visit Provider Family Medicine
DX: G45.9 Transient cerebral ischemic attack, unspecified (principal)
CPT/HCPCS: 70544; 70547; 70551

== ENCOUNTER → 2023-02-15 03:33 | Outpatient (CLI) | payer MEDICARE, MEDICAID, SELFPAY ==
--- NOTE | 2023-02-15 11:46 | DI.US_ITS ---
APPROVED REPORT EXAM: Comprehensive 2D, Doppler, and color-flow Echocardiogram Patient Location: Out-Patient Pigment Weigher: Jasbir Trinidad RDCS (AE) Indications: TIA, aphasia, ataxia Other Information Study Quality: Good Conclusion Normal left ventricular wall thickness and chamber size. Ejection fraction is 60-65%. Wall motion i s normal Normal right ventricular size and systolic function Left atrium is mildly enlarged. Right atrial size is normal Aortic valve is trileaflet and mildly sclerotic without stenosis or regurgitation Moderate mitral annular calcification. Mild to moderate mitral regurgitation Wall motion Left Ventricle The left ventricle is normal size. The left ventricular systolic function is normal. The left ventric ular ejection fraction is within the normal range. There is normal left ventricular wall thickness. T here is normal LV segmental wall motion. LVEF is 60-65%. Right Ventricle The right ventricle is normal size. The right ventricular systolic function is normal. The RVSP is 6. 6 mmHg. Atria Left atrium is mildly dilated. The right atrium size is normal. The interatrial septum is intact with no evidence for an atrial septal defect. Aortic Valve The Aortic valve is mildly sclerotic. Aortic valve is trileaflet. There is no aortic valvular stenosi s. No aortic regurgitation is present. Mitral Valve Moderate mitral annular calcification. No evidence of mitral valve stenosis. Mild to moderate mitral regurgitation. Tricuspid Valve The tricuspid valve is normal in structure. There is no tricuspid valve stenosis. Trace tricuspid reg urgitation. Pulmonic Valve The pulmonary valve is normal in structure. There is no pulmonic valvular stenosis. Trivial pulmonic regurgitation. Great Vessels The aortic root is normal in size. The ascending aorta is normal in size. Aortic arch is normal in ca liber. IVC is normal in size and collapses >50% with inspiration. Pericardium There is no pericardial effusion. 2D Dimensions IVSD d PLAX 0.91 cm F: 0.6-1.0 Ao Root d 2.84 cm F: 2.7 - 3.3 LVPW d PLAX 0.87 cm F: 0.6 - 1.0 Ao Asc Diam d 3.05 cm F: 2.3 - 3.1 LVID d PLAX 4.49 cm F: 3.8 - 5.2 LVDs 3.04 cm F: 2.2 - 3.5 LV EF Teichholz 60.9 % FS 32.44 % LV EDV (Teich) 92.2 mL LV ESV (Teich) 36.1 mL Stroke Vol Index (Teich) 30.84 M-Mode TAPSE 2.76 cm (M/F) >1.7 Auto EF LV EDV A4C 85.5 mL LV EDV A2C 78.7 mL LV EDV BP 82.3 mL LV ESV A4C 30.3 mL LV ESV A2C 27.7 mL LV ESV BP 28.6 mL LVEF(%) A4C 64.6 % LVEF(%) A2C 64.8 % LVEF(%) BP 65.2 % LV SV A4C 55.2 ml LV SV A2C 51.0 ml LV SV BP 53.7 ml LV CO A4C 3.6 L/min LV CO A2C 3.3 L/min LV CO BP 3.5 L/min HR A4C 64.87 BPM HR A2C 65.67 BPM LV EDV Index (BP) LA Volume LA Length A4C 5.0 cm LA Length A2C LA Area A4C s 17.52 cm2 LA Area A2C s LA Vol A4C A-L 52.26 mL LA Vol A2C A-L LA Vol Biplane A-L LA Vol A4C MOD 46.5 mL LA Vol A2C MOD LA Vol BP MOD RA Volume RA Area A4C 8.6 cm2 RA ESV A4C (A-L) 15.4mL RA Vol/BSA A4C A-L RA Length A4C 4.1 cm RA ESV A4C (MOD) 15.2mL LV Diastology MV E' medial 0.068 (>0.07 m/s) MV E Vmax 0.82 (0.4-1.3 m/s) MV E/E' MED 12.05 (<14) MV A Vmax 0.95 (0.4-1.3 m/s) MV E' lateral 0.061 (>0.1 m/s) E/A Ratio 0.9 MV E/E' LAT 13.42 (<14) MV E' Average 0.065 m/s MV E/E'(average) 12.70 Aortic Valve AoV Vmax 1.51 m/s LVOT Vmax 0.94 m/s AoV Peak Grad 9.2 mmHg LVOT Peak Grad 3.5 mmHg AoV Area (Vmax) 1.74 cm2 LVOT VTI 0.234 m AoV VTI 0.361 m LVOT Mean Grad 1.8 mmHg AoV Mean Isai. 1.00 m/s LVOT SV 65.92 mL AoV Mean Grad 4.6 mmHg LVOT Diam s 1.85 cm AoV Area (VTI) 1.83 cm2 Velocity Ratio 0.62 Mitral Valve MV DT 259 (160-240 msec) Pulmonary Valve PV Vmax 1.17 (0.5-1.5 m/s) RVOT Vmax 0.80 m/s PV Peak Grad 5.5 mmHg RVOT Peak Gr. 2.5 mmHg PV Mean Isai 0.85 m/s RVOT VTI 0.194 m PV Mean Grad 3.2 mmHg RVOT Mean Gr. 1.6 mmHg Tricuspid Valve RA Pressure 3.00 mmHg TR Vmax 0.95 m/s TR Peak Grad 3.6 mmHg RVSP (TR) 6.6 mmHg
== END ==
PROVIDERS: PCP Family Medicine; Visit Provider Family Medicine
DX: G45.9 Transient cerebral ischemic attack, unspecified (principal)
CPT/HCPCS: 93306

== ENCOUNTER 2023-02-22 13:00 | Outpatient (CLI) | payer MEDICARE, MEDICAID, SELFPAY ==
--- NOTE | 2023-02-22 12:45 | DI.RAD_ITS ---
Exam(s) XR HIP RT AP LAT ONLY EXAM: XR HIP RT AP LAT ONLY CLINICAL HISTORY: YEARLY F/U RIGHT MARTIN. TECHNIQUE: 2D digital imaging was performed. Two images were obtained. AP and lateral views were ob tained. COMPARISON: CR XR HIP RT COMPLETE AP PELVIS from 09/15/2021 CR XR PELVIS AP from 02/09/2022 CR XR HIP RT COMPLETE AP PELVIS from 03/05/2022 FINDINGS: BONES: There are stable post operative changes of a right total hip replacement present. No fracture or dislocation. JOINTS: The orthopedic hardware is in good position. No evidence of hardware loosening. SOFT TISSUE: Atherosclerosis. IMPRESSION: Stable postoperative changes. DATA REPOSITORY: RADIATION DOSE DELIVERED:
== END 2023-02-22 13:01 | disposition home or self-care (01) ==
LOC: DIORS 13:01
PROVIDERS: PCP Family Medicine; Visit Provider Student in an Organized Health Care Education/Training Program
DX: Z47.1 Aftercare following joint replacement surgery (principal); Z96.641 Presence of right artificial hip joint
CPT/HCPCS: 99213; 73502

== ENCOUNTER → 2023-03-10 03:25 | Outpatient (CLI) | payer MEDICARE, MEDICAID, SELFPAY ==
--- NOTE | 2023-03-10 08:00 | DI.US_ITS ---
Exam(s) US THYROID EXAM: US THYROID CLINICAL HISTORY: Assess for change, not biopsied,f/u thyroid nodule, e04.1. TECHNIQUE: Ultrasound thyroid performed using standard protocol. COMPARISON: US US THYROID from 03/10/2022 FINDINGS: ISTHMUS: 3 mm RIGHT LOBE: Size: 4.6 x 2 point by 1.8 cm Echogenicity: Normal. Vascularity: Normal. Nodules: Large nodule occupying the mid to lower pole 3.4 x 2.1 x 2.2 cm. Mixed cystic and solid, mi xed echogenicity, predominantly hypoechoic with ill-defined margins. Macrocalcifications. TR 4. FN A recommended due to size. LEFT LOBE: Size: 4.1 x 1.3 x 1.3 cm Echogenicity: Normal. Vascularity: Normal. Nodules: Stable appearance of few small benign-appearing nodules. OTHER FINDINGS: None. IMPRESSION: Roughly stable size and appearance large nodule in the right lobe of the thyroid, TR 4. FNA recommen ded due to size. DATA REPOSITORY:
== END ==
PROVIDERS: PCP Family Medicine; Visit Provider Otolaryngology
DX: E04.1 Nontoxic single thyroid nodule (principal)
CPT/HCPCS: 76536

== ENCOUNTER → 2023-03-11 13:54 | Outpatient (BNVA) | payer MEDICARE, MEDICAID, SELFPAY | PROVIDERS: PCP Family Medicine; Referring Provider Family Medicine; Visit Provider Psychiatry & Neurology Neurology | DX: R42 Dizziness and giddiness (principal); R47.01 Aphasia; I51.7 Cardiomegaly; R41.3 Other amnesia; I10 Essential (primary) hypertension; E11.21 Type 2 diabetes mellitus with diabetic nephropathy | CPT/HCPCS: 99215 ==

== ENCOUNTER 2023-07-26 13:32 | Outpatient (REF) | payer MEDICARE, MEDICAID, SELFPAY ==
[2023-07-26 15:50] LABS: Hemoglobin A1C 7.6 % (<5.7)
[2023-07-26 15:53] LABS: Anion Gap 11.2 mmol/L (3-11); BUN 14 mg/dL (7-18); CO2 26.8 mmol/L (21.0-32.0); CREATININE 0.8 mg/dL (0.55-1.02); Calcium 9.4 mg/dL (8.5-10.1); Calculated LDL 84 mg/dL (<100); Chloride 97 mmol/L (98-107); Cholesterol 176 mg/dL (<200); Estimated GFR 73.52 (mL/min/1.73m2); Glucose 168 mg/dL (74-106); HDL Cholesterol 69 mg/dL (40-60); Potassium 4.7 mmol/L (3.5-5.1); Sodium 135 mmol/L (136-145); Triglyceride 118 mg/dL (<150)
== END 2023-07-26 13:33 | disposition home or self-care (01) ==
LOC: NCHCN 13:32
PROVIDERS: PCP Family Medicine; Visit Provider Family Medicine
DX: E11.9 Type 2 diabetes mellitus without complications (principal)
CPT/HCPCS: 80048; 80061; 83036

== ENCOUNTER 2023-08-05 19:00 | Outpatient (REF) | payer MEDICARE, MEDICAID, SELFPAY ==
--- NOTE | 2023-08-05 15:44 | SKI_PTH ---
PATIENT: Ananya Pitts LOC: [facility] U#:[id number] AGE/SX: 82/F ROOM: RE08/05/[address]: Los Lozano : 1940 BED: DIS: 08/05/2023 SPEC #: [id number] RECD: 08/06/23 12:36 STATUS: MEG LOTT #: [id number] COLIN: 08/05/23 15:[address]: Los Lozano DEPT: Surgical Specimen RECD BY: Bouchra Parham Tissues: 1 - SKIN BIOPSY(SHAVE/PUNCH) Procedures: SKIN LEVEL 4 Comments: [id number]
== END 2023-08-05 19:01 | disposition home or self-care (01) ==
LOC: NCHCN 19:00
PROVIDERS: PCP Family Medicine; Visit Provider Family Medicine
DX: C44.321 Squamous cell carcinoma of skin of nose (principal)
CPT/HCPCS: 88305

== ENCOUNTER 2023-09-23 09:04 | Emergency (ER) | payer MEDICARE, MEDICAID, SELFPAY ==
[2023-09-23 09:08] VITALS: BP 175/80; PULSE 70; RESP 16; TEMP 36.5; O2SAT 99
--- NOTE | 2023-09-23 09:13 | ED.GENADUL_ITS ---
Discharge Plan Disposition Patient Disposition: Home Discharge Details Clinical Impression: Urinary tract infection Primary Care Provider: RIKA BORRERO ED Provider: Los Lopez [place] Meds and New Rx's Prescriptions: New cephalexin 250 mg capsule 250 mg PO QID 5 Days Qty: 20 0RF Continued Algal Clarington-3 DHA 200 mg capsule 200 mg PO DAILY aspirin 81 mg tablet,delayed release (DR/EC) 81 mg PO DAILY metformin 500 MG tablet 1,000 mg PO BID lisinopril 20 MG tablet 40 mg PO DAILY vitamin B complex 1 EACH tablet 1 ea PO DAILY garlic 1 EACH tablet 1 ea PO DAILY cholecalciferol (vitamin D3) 2,000 UNIT tablet 5,000 unit PO DAILY Patient Comments: Reports taking 5000 units not 6000 units as listed chromium amino acid chelate 400 MCG tablet 200 mcg PO DAILY essiac tea capsule 125 mg PO DAILY magnesium 100 mg tablet 125 mg PO BID insulin glargine [Lantus Solostar U-100 Insulin] 100 unit/mL (3 mL) insulin pen 12 unit SUBCUT HS Patient Comments: 6 units carboxymethylcellulose sodium [Refresh Tears] 0.5 % drops 1 drp ophthalmic (eye) 4-6XD PRN ascorbate calcium (vitamin C) 500 mg tablet 500 mg PO DAILY omega 7-gex-xbc-fish oil 300-1,000 mg capsule,delayed release(DR/EC) 1 cap PO DAILY cranberry extract 500 mg Capsule 500 mg PO DAILY amlodipine 2.5 mg tablet 2.5 mg PO DAILY Patient Comments: TAKE ONE TABLET BY MOUTH EVERY DAY FOR BLOOD PRESSURE red yeast rice 600 mg capsule 600 mg PO BID Rx Instructions: give with meal/snack hawthorn 500 mg capsule 500 mg PO DAILY Discharge Instructions Instructions: Urinary Tract Infection in Women (ED) Additional Instructions: You are seen in the emergency department for your burning while urinating. Your urinalysis shows signs of urinary tract infection for 2 receiving antibiotics that you should take as directed. As we discussed, please return to the emergency department if you develop fevers nausea vomiting or cannot eat or drink. Please also return if you develop flank pain. Otherwise please follow- up with your primary care provider. For your pain please take medications as follows: 1. Take acetaminophen (Tylenol), 1,000 mg (two 500 mg tabs) every 6 hours Discharge Data Discharge Date/Time-TO BE ENTERED AT DEPARTURE: 09/23/23 10:12 HPI General Date/Time Provider Initiated Documentation: 09/23/23 09:13 . HPI Narrative: MDM This is an overall very well-appearing normothermic and not tachycardic 82-year-old female with dysuria and frequency concerning for the possibility of UTI. No flank pain nor fevers to suggest pyelonephritis so I do not feel that the patient requires IV antibiotics. I considered sepsis however the patient is not tachypneic tachycardic nor hypotensive so I did not order a lactate blood cultures nor treat empirically with broad-spectrum antibiotics. No pain out of proportion to suggest necrotizing soft tissue infection. No right lower quadrant tenderness to suggest appendicitis. No left lower quadrant tenderness to suggest diverticulitis. No rash to abdomen to suggest zoster. No abnormal vaginal discharge so my suspicion for sexually transmitted infection is low. No vomiting to suggest pancreatitis. No right upper quadrant tenderness to suggest acute cholecystitis. No falls to suggest increased risk for hip fracture. No history of ureterolithiasis and no flank pain so my suspicion is low for ureterolithiasis so I did not feel that the patient required a CT scan. Patient has been urinating normally and appears hydrated so no indication for IV hydration. She has moist mucous membranes and is not tachycardic nor h ypotensive so I did not feel that she required IV hydration. No shortness of breath to suggest PE. No cough so my suspicion is low for pneumonia. Prior microscopy showing gram-positive mixed ana maria. No pathological organisms. Given symptoms consistent with UTI will treat regardless of urine results. 9:45 AM Urinalysis showing trace leuk sterase which in the setting of the patient's symptoms we will treat with cephalexin 250 mg 4 times daily. I reviewed the patient's allergies and she has an allergy to penicillins but not cephalosporins. Will give her her first dose of cephalosporin in the ED. I met with patient and her [id number] and explained treatment with antibiotics. I advised ED return for inability to tolerate p.o. as result of nausea vomiting. I also advised ED return for any flank pain or worsening symptoms. Patient understood her return indications and was discharged with empiric trial of expectant outpatient management. Chronic conditions affecting the care of the patient: Prior urinary tract infection History obtained from an outside historian: Prior urinary tract infection [place] [facility] [place] Medications: N/A Social determinants of health affecting disposition: N/A Management discussed with: N/A Treatment/interventions considered: CT scan but deferred Response to therapies provided: N/A HPI This is an 82-year-old female with prior history of urinary tract infection and insulin dependent diabetes arrived to the emergency department via private vehicle with her [id number] in the setting of dysuria and frequency. Patient last had a urinary tract infection several years ago. For the past week she has had intermittent dysuria and frequency. Patient has had no abnormal vaginal discharge. She has been attempting treatment at home with cranberry pills. She has no history of ureterolithiasis. She denies any recent falls. She has urinated twice so far this morning. She denies flank pain nausea vomiting fevers and chills. No diarrhea. No chest pain. No shortness of breath. Exam General: Well-appearing in no acute distress speaking in complete sentences. Head: Normocephalic, atraumatic. Eye: Extraocular eye movements intact. No conjunctival injection. No scleral icterus. Ear, nose, mouth, throat: Grossly normal inspection. Normal voice, handling secretions normally. Moist mucous membranes. Neck: Trachea midline. Cardiovascular: Well-perfused distal extremities. Regular rate and rhythm. Respiratory: Nonlabored respiration. Clear lungs bilaterally. Gastrointestinal: Nondistended abdomen. Soft nontender. No rebound. No guarding. Musculoskeletal: No edema. Moving all 4 extremities spontaneously. Skin: Normal for age and race, grossly normal temperature and turgor. No acute rash. Neurologic: Alert and appropriate, no apparent acute deficits. Psychiatric: Mood and manner are appropriate. Grooming and personal hygiene are appropriate. Related Data Home Medications Medication Instructions Recorded Confirmed [facility] Tea 125 mg PO DAILY 12/28/13 09/23/23 cholecalciferol (vitamin D3) 50 5,000 unit PO DAILY 12/28/13 09/23/23 mcg (2,000 unit) tablet chromium amino acid chelate 400 200 mcg PO DAILY 12/28/13 09/23/23 mcg tablet garlic 1 ea PO DAILY 12/28/13 09/23/23 lisinopril 20 mg tablet 40 mg PO DAILY 12/28/13 09/23/23 metformin 500 mg tablet 1,000 mg PO BID 12/28/13 09/23/23 vitamin B complex 1 ea PO DAILY 12/28/13 09/23/23 cranberry extract 500 mg capsule 500 mg PO DAILY 06/13/20 09/23/23 amlodipine 2.5 mg tablet 2.5 mg PO DAILY 09/18/20 09/23/23 docosahexaenoic acid 200 mg 200 mg PO DAILY 10/02/21 09/23/23 capsule (Algal Clarington-3 DHA) insulin glargine 100 unit/mL (3 12 unit subcut HS 11/26/21 09/23/23 mL) subcutaneous pen (Lantus Solostar U-100 Insulin) magnesium 100 mg tablet 125 mg PO BID 11/26/21 09/23/23 aspirin 81 mg tablet,delayed 81 mg PO DAILY 04/06/22 09/23/23 release ascorbate calcium (vitamin C) 500 500 mg PO DAILY 03/10/23 09/23/23 mg tablet carboxymethylcellulose sodium 0.5 1 drp ophthalmic (eye) 4-6XD PRN 03/10/2309/07 % eye drops (Refresh Tears) omega 3-moy-knc-fish oil 300 1 cap PO DAILY 03/10/23 09/23/23 mg-1,000 mg capsule,delayed release cephalexin 250 mg capsule 250 mg PO QID 5 days #20 caps 09/23/23 hawthorn 500 mg capsule 500 mg PO DAILY 09/23/23 09/23/23 red yeast rice 600 mg capsule 600 mg PO BID 09/23/23 09/23/23 Previous Rx's Medication Instructions Recorded cephalexin 250 mg capsule 250 mg PO QID 5 days #20 caps 09/23/23 Allergies Allergy/AdvReac Type Severity Reaction Status Date / Time Penicillins Allergy Severe Other (See Verified 09/23/23 09:23 Comment) saxagliptin HCl Allergy Severe Other (See Verified 09/23/23 09:23 [From Onglyza] Comment) adhesive Allergy Intermediate Skin Rash Verified 09/23/23 09:23 latex AdvReac Skin Rash Verified 09/23/23 09:23 prednisone AdvReac Unknown Verified 09/23/23 09:23 General Stated Complaint: Urinary EVA: 4 Course Vital Signs Vital signs: Vital Signs Temperature 36.5 C 09/23/23 09:08 Pulse 70 09/23/23 09:08 Respiratory Rate 16 09/23/23 09:08 Blood Pressure 175/80 H 09/23/23 09:08 Pulse Oximetry 99 09/23/23 09:08 Temperature 36.5 C 09/23/23 09:08 Pulse 70 09/23/23 09:08 Respiratory Rate 16 09/23/23 09:08 Blood Pressure 175/80 H 09/23/23 09:08 Blood Pressure Position Sitting 09/23/23 09:08 Pulse Oximetry 99 09/23/23 09:08 Oxygen Delivery Method Room Air 09/23/23 09:08 Oxygen Flow Rate 0 09/23/23 09:08 Pain Level 8 09/23/23 09:08 Medical Decision Making Quality:SDOH Health Related Social Needs: No Data to Display PFSH All Active Problems (Updated 09/23/23 @ 09:45 by Los Lopez MD) Urinary tract infection (Acute) Conductive hearing loss, external ear (Acute) Benign paroxysmal positional vertigo of left ear (Acute) Memory deficit (Acute) Atrial enlargement, left (Acute) Vertigo (Acute) Sensorineural hearing loss (Acute) Wears hearing aid in both ears (Acute) Excessive cerumen in right ear canal (Acute) History of total right hip replacement (Acute 02/18/22) Impacted cerumen, bilateral (Acute) Insect bite (Acute) Tick bite (Acute) Sensorineural hearing loss of both ears (Acute) TIA (transient ischemic attack) (Acute) Type 2 diabetes mellitus (Chronic) Thyroid nodule (Acute) Thyroid nodule greater than or equal to 1.5 cm in diameter incidentally noted on imaging study (Acute) Hypertension (Chronic) Medical History Dupuytren contracture Recurrent cystitis Bakers cyst Seborrheic keratosis Macular degeneration Actinic keratosis Lactose intolerance Allergic rhinitis Dyspepsia Cataract Alopecia areata BPPV (benign paroxysmal positional vertigo) Cerebrovascular disease Osteoarthritis Epistaxis Anemia Sleep apnea Sleeps on side - mild case Atrophic vaginitis (08/28/14) Diabetic peripheral neuropathy Esophagitis Deviated nasal septum Venous insufficiency Osteopenia Congenital ectodermal dysplasia Arthritis Diabetes 2006 Microalbuminuric diabetic nephropathy Herpes zoster Dry eye syndrome pt sb Surgical History History of tonsillectomy and adenoidectomy Status post tubal ligation (~1982) Hx of cataract surgery Bilateral DOS: 2020 Total replacement of hip (~2000) Left Family History Son Diabetes COVID-19 Daughter History of diabetes mellitus Daughter History of diabetes mellitus Daughter History of diabetes mellitus Brother Brain tumor Brother Stroke Brother Bladder cancer Social History Smoking/Tobacco Use Status: Never Smoking risk assessment performed?: Yes Alcohol Intake: never Drug use: Never Substance use type: does not use Household members: none Housing: apartment Number of Children: 4 Pets and animals: No Current gender identity: female Do you feel safe at home: Yes Do you feel safe in your relationship?: Yes
[2023-09-23 09:32] LABS: Bilirubin Negative (Negative); Blood Negative (Negative); Clarity Clear (Clear); Glucose Negative (Negative); Ketones Trace mg/dL (Negative); Leukocyte Esterase Trace (Negative); Nitrite Negative (Negative); Urobilinogen 0.2 mg/dL (Up to 0.2)
[2023-09-23 09:49] LABS: Bacteria Rare HPF (Negative); C & S Indicated? No; Casts Negative LPF (Negative); Crystals Negative HPF (Negative); Epithelial Cells Rare HPF (Negative); Mucus Moderate (Negative); RBC 0-2 HPF (0-2)
[2023-09-23] MEDS: Cephalexin 250 MG CAP PO (09:52)
[2023-09-23 09:53] VITALS: BP 181/69; PULSE 69; RESP 16; O2SAT 98
== END 2023-09-23 10:12 | disposition home or self-care (01) ==
PROVIDERS: Emergency Provider Emergency Medicine; PCP Nurse Practitioner Family
DX: N39.0 Urinary tract infection, site not specified (principal); R35.0 Frequency of micturition; R30.0 Dysuria; E11.9 Type 2 diabetes mellitus without complications
CPT/HCPCS: 99283; 81003; 81015

== ENCOUNTER 2024-03-09 02:17 | Outpatient (CLI) | payer MEDICARE, MEDICAID, SELFPAY ==
--- NOTE | 2024-03-09 12:20 | DI.US_ITS ---
Exam(s) US THYROID EXAM: US THYROID CLINICAL HISTORY: Assess for change,thyroid nodule,e04.1. TECHNIQUE: Ultrasound thyroid performed using standard protocol. COMPARISON: US US THYROID from 02/20/2021 US US THYROID from 09/24/2021 US US THYROID from 03/10/2022 US US THYROID from 03/10/2023 FINDINGS: ISTHMUS: 2 mm RIGHT LOBE: Size: 5.4 x 1.9 x 1.7 cm Echogenicity: Heterogeneous. Vascularity: Normal. Nodules: Right lobe nodule from mid to lower pole again noted measures 3.5 x 1.8 x 1.7 cm. No signif icant change in size compared with exams back to 2021. Mixed cystic and solid mildly taller than wi de with macro calcifications, TR 4. LEFT LOBE: Size: 3.6 x 1.4 x 1.1 cm Echogenicity: Normal. Vascularity: Normal. Nodules: Stable small benign-appearing nodules. OTHER FINDINGS: None. IMPRESSION: Stable size and appearance of right thyroid nodule. DATA REPOSITORY:
== END 2024-03-09 02:37 ==
LOC: DI 02:17
PROVIDERS: PCP Nurse Practitioner Family; Visit Provider Otolaryngology
DX: E04.1 Nontoxic single thyroid nodule (principal)
CPT/HCPCS: 76536

== ENCOUNTER 2024-03-16 02:55 | Outpatient (CLI) | payer MEDICARE, MEDICAID, SELFPAY ==
--- NOTE | 2024-03-16 | DI.RAD_ITS ---
Exam(s) XR HIP LT COMPLETE AP PELVIS EXAM: XR HIP LT COMPLETE AP PELVIS INDICATION: LT HIP PAIN,,M25.552,H/O LT HIP JOINT PROSTHESIS,[id number]. COMPARISON: CR XR PELVIS AP from 02/09/2022 CR XR HIP RT COMPLETE AP PELVIS from 03/05/2022 CR XR HIP RT AP LAT ONLY from 02/22/2023 TECHNIQUE: 2D digital imaging was performed. Three views. FINDINGS: Stable appearance of bilateral hip prostheses. No abnormal surrounding bony lucencies. Mild degener ative changes of the SI joints. Advanced degenerative changes of the lower lumbar spine. IMPRESSION: Stable appearance of bilateral hip prostheses. DATA REPOSITORY: RADIATION DOSE DELIVERED:
== END 2024-03-16 03:15 ==
LOC: DI 02:56
PROVIDERS: PCP Nurse Practitioner Family; Visit Provider Nurse Practitioner Family
DX: Z98.890 Other specified postprocedural states (principal); Z96.643 Presence of artificial hip joint, bilateral
CPT/HCPCS: 73502

== ENCOUNTER 2024-09-06 16:21 | Outpatient (REF) | payer MEDICARE, MEDICAID, SELFPAY ==
[2024-09-06 16:35] LABS: Anion Gap 8.4 mmol/L (3-11); BUN 12 mg/dL (7-18); CO2 28.6 mmol/L (21.0-32.0); CREATININE 0.7 mg/dL (0.55-1.02); Calcium 9.3 mg/dL (8.5-10.1); Chloride 100 mmol/L (98-107); Estimated GFR 85.76 (mL/min/1.73m2); FREE T4 0.99 ng/dL (0.76-1.46); Glucose 175 mg/dL (74-106); Potassium 4.8 mmol/L (3.5-5.1); Sodium 137 mmol/L (136-145); TSH 1.55 uIU/mL (0.36-3.74)
== END 2024-09-06 16:22 | disposition home or self-care (01) ==
LOC: NCHCN 16:21
PROVIDERS: PCP Nurse Practitioner Family; Visit Provider Nurse Practitioner Family
DX: I10 Essential (primary) hypertension (principal); E04.1 Nontoxic single thyroid nodule
CPT/HCPCS: 80048; 84439; 84443

== ENCOUNTER 2024-09-11 12:08 | Outpatient (REF) | payer MEDICARE, MEDICAID, SELFPAY ==
[2024-09-11 16:04] LABS: HCT 37.3 % (36.0-46.0); HGB 12.2 g/dL (11.2-15.7); MCH 29.3 pg (27.0-33.0); MCHC 32.7 % (32.0-36.0); MCV 90 fL (80-95); MPV 11.3 fL (8.0-11.0); Platelet Count 257 10^3/uL (130-400); RBC 4.16 10^6/uL (3.93-5.22); RDW 12.3 % (11.7-14.6); RDW-SD 40.4 fL; WBC 7.05 10^3/uL (4.4-10.8)
[2024-09-11 17:10] LABS: Hemoglobin A1C 7.3 % (<5.7)
[2024-09-11 17:32] LABS: Calculated LDL 63 mg/dL (<100); Cholesterol 157 mg/dL (<200); Ferritin 22 ng/mL (8-252); HDL Cholesterol 66 mg/dL (>or=50); Triglyceride 144 mg/dL (<150); Vitamin B12 227 pg/mL (193-986)
[2024-09-11 17:47] LABS: Iron 81 ug/dL (50-170); Total Iron Binding Capacity 341 ug/dL (250-450); Transferrin Sat 24 % (15-50)
== END 2024-09-11 12:09 | disposition home or self-care (01) ==
LOC: NCHCN 12:08
PROVIDERS: PCP Nurse Practitioner Family; Visit Provider Nurse Practitioner Family
DX: E11.9 Type 2 diabetes mellitus without complications (principal); R53.83 Other fatigue
CPT/HCPCS: 80061; 85027; 82607; 82728; 83036; 83540; 83550

== ENCOUNTER 2025-02-28 13:51 | Outpatient (CLI) | payer MEDICARE, MEDICAID, SELFPAY ==
--- NOTE | 2025-02-28 | DI.RAD_ITS ---
Exam(s) XR FOOT LT COMPLETE EXAM: XR FOOT LT COMPLETE CLINICAL HISTORY: M79.672 Pain left foot. TECHNIQUE: 2D digital imaging was performed of the left foot. Three images were obtained. AP, oblique and lateral views were obtained. COMPARISON: No exams were available for comparison FINDINGS: BONES: No acute fracture is present. No bony destructive lesion is seen. There is an enthesophyte at the posterior calcaneus. JOINTS: No dislocation present. SOFT TISSUE: Normal. IMPRESSION: No acute abnormality. DATA REPOSITORY: RADIATION DOSE DELIVERED:
== END 2025-02-28 14:11 ==
PROVIDERS: PCP Nurse Practitioner Family; Visit Provider Physician Assistant Medical
DX: M79.672 Pain in left foot (principal)
CPT/HCPCS: 73630

== ENCOUNTER 2025-03-21 10:29 | Outpatient (REF) | payer MEDICARE, MEDICAID, SELFPAY ==
[2025-03-21 17:31] LABS: Hemoglobin A1C 7.5 % (<5.7)
[2025-03-21 18:18] LABS: Microalb ug/mg Crea 19.7 ug/mg Cr
== END 2025-03-21 10:30 | disposition home or self-care (01) ==
LOC: NCHCN 10:29
PROVIDERS: PCP Nurse Practitioner Family; Visit Provider Nurse Practitioner Family
DX: E11.9 Type 2 diabetes mellitus without complications (principal); Z79.4 Long term (current) use of insulin
CPT/HCPCS: 82043; 82570; 83036

== ENCOUNTER → 2025-04-24 00:38 | Outpatient (CLI) | payer MEDICARE, MEDICAID, SELFPAY ==
--- NOTE | 2025-04-24 | DI.RAD_ITS ---
Exam(s) XR HIP LT COMPLETE AP PELVIS EXAM: XR HIP LT COMPLETE AP PELVIS CLINICAL HISTORY: PAIN LT THIGH M79.652 ARTIFICIAL JOINT AND BACK PAIN REASSESS HARDWARE. TECHNIQUE: 2D digital imaging was performed. Three images were obtained. AP pelvis, AP and lateral left hip views were obtained. COMPARISON: CR XR HIP LT COMPLETE AP PELVIS from 03/16/2024 FINDINGS: BONES: There are stable post operative changes of a left total hip arthroplasty present. No fracture or dislocation. JOINTS: The orthopedic hardware is in good position. No evidence of hardware loosening. SOFT TISSUE: Normal. IMPRESSION: Stable left total hip arthroplasty. DATA REPOSITORY: RADIATION DOSE DELIVERED:
== END ==
PROVIDERS: PCP Nurse Practitioner Family; Visit Provider Nurse Practitioner Family
DX: M79.652 Pain in left thigh (principal); Z96.642 Presence of left artificial hip joint
CPT/HCPCS: 73502